=== PATIENT | female | born 1950 | race Caucasian/White ===

== ENCOUNTER → 2017-04-17 | Outpatient (CLI) | payer MEDICARE, MEDICAID ==
[2017-04-17 12:48] LABS: BASOPHILS # (AUTO) 0.1 10^3/uL (0.0-0.1); BASOPHILS % (AUTO) 0.4 %; EOSINOPHILS # (AUTO) 0.1 10^3/uL (0.0-0.7); EOSINOPHILS % (AUTO) 0.6 %; HCT - HEMATOCRIT 41.1 % (37.0-47.0); HGB - HEMOGLOBIN 13.5 g/dL (12.0-16.0); LYMPHOCYTES # (AUTO) 2.8 10^3/uL (1.5-3.5); LYMPHOCYTES % (AUTO) 23.7 %; MEAN CORPUSCULAR HEMOGLOBIN 31.8 pg (27.0-31.0); MEAN CORPUSCULAR HGB CONC 32.8 g/dL (32.0-36.0); MEAN PLATELET VOLUME 8.9 fL (7.9-10.8); MONOCYTES # (AUTO) 0.7 10^3/uL (0.0-1.0); MONOCYTES % (AUTO) 5.9 %; NEUTROPHILS # (AUTO) 8.3 10^3/uL (1.5-6.6); NEUTROPHILS % (AUTO) 69.4 %; RED BLOOD COUNT 4.24 10^6/uL (4.20-5.40); RED CELL DISTRIBUTION WIDTH 13.1 % (12.0-15.0)
[2017-04-17 13:11] LABS: BILIRUBIN,TOTAL 0.5 mg/dL (0.2-1.0); BUN - BLOOD UREA NITROGEN 18 mg/dL (6-20); CALCIUM 9.1 mg/dL (8.5-10.3); CARBON DIOXIDE - CO2 28 mmol/L (21-32); CHLORIDE 99 mmol/L (101-111); CHOL/HDL RATIO 2.8 (<4.4); CHOLESTEROL 143 mg/dL; CREATININE 0.9 mg/dL (0.4-1.0); GFR - MDRD 63 (>89); GLUCOSE 215 mg/dL (70-100); HDL CHOLESTEROL 52 mg/dL; LDL/HDL RATIO 1.4 (<4.4); POTASSIUM 4.2 mmol/L (3.5-5.0); SODIUM 135 mmol/L (135-145); TOTAL PROTEIN 7.3 g/dL (6.7-8.2); TRIGLYCERIDES 82 mg/dL; VLDL CHOLESTEROL 16 mg/dL
[2017-04-17 13:13] LABS: HEMOGLOBIN A1C 0.81 g/dL
== END ==
LOC: LAB.WCP 10:17
PROVIDERS: ATTEND Family Medicine
DX: N39.0 Urinary tract infection, site not specified (principal); E11.9 Type 2 diabetes mellitus without complications; E78.5 Hyperlipidemia, unspecified
CPT/HCPCS: 36415; 80053; 80061; 82043; 83036; 85025; 87086

== ENCOUNTER 2017-05-24 08:00 | Outpatient (CLI) | payer MEDICARE, MEDICAID | END 2017-05-24 08:01 | LOC: LAB.R 08:00 | PROVIDERS: ATTEND Family Medicine | DX: N39.0 Urinary tract infection, site not specified (principal) | CPT/HCPCS: 87086 ==

== ENCOUNTER 2017-06-07 05:54 | Day surgery (SDC) | payer MEDICARE, MEDICAID ==
[2017-06-07] MEDS ORDERED: LACTATED RINGERS 1,000 ML IV ONE (07:20)
[2017-06-07] MEDS ORDERED: fentaNYL 100 MCG/2 ML VIAL IVP ONE (07:32)
[2017-06-07] MEDS ORDERED: MIDAZOLAM 2 MG/2 ML VIAL IVP ONE (07:32)
[2017-06-07 08:54] VITALS: BP 105/66
== END 2017-06-07 05:55 | disposition home or self-care (01) ==
LOC: SDS 05:54
PROVIDERS: ATTEND Surgery
PROC: 0DBL8ZX Excision of Transverse Colon, Via Natural or Artificial Opening Endoscopic, Diagnostic (ICD-10-PCS; principal; 2017-06-07 07:30)
DX: Z12.11 Encounter for screening for malignant neoplasm of colon (principal); D12.3 Benign neoplasm of transverse colon; K57.30 Diverticulosis of large intestine without perforation or abscess without bleeding; K64.4 Residual hemorrhoidal skin tags; E11.9 Type 2 diabetes mellitus without complications; Z79.4 Long term (current) use of insulin; Z86.73 Personal history of transient ischemic attack (TIA), and cerebral infarction without residual deficits; I25.2 Old myocardial infarction
CPT/HCPCS: 45380; J7120

== ENCOUNTER 2017-08-10 10:26 | Outpatient (CLI) | payer MEDICARE, MEDICAID ==
[2017-08-10 19:08] LABS: BASOPHILS # (AUTO) 0.1 10^3/uL (0.0-0.1); BASOPHILS % (AUTO) 0.6 %; EOSINOPHILS # (AUTO) 0.2 10^3/uL (0.0-0.7); EOSINOPHILS % (AUTO) 1.9 %; HGB - HEMOGLOBIN 13.3 g/dL (12.0-16.0); LYMPHOCYTES # (AUTO) 2.1 10^3/uL (1.5-3.5); LYMPHOCYTES % (AUTO) 20.8 %; MEAN CORPUSCULAR HGB CONC 32.4 g/dL (32.0-36.0); MEAN CORPUSCULAR VOLUME 98.8 fL (81.0-99.0); MEAN PLATELET VOLUME 9.1 fL (7.9-10.8); MONOCYTES # (AUTO) 0.7 10^3/uL (0.0-1.0); MONOCYTES % (AUTO) 6.6 %; NEUTROPHILS # (AUTO) 7.1 10^3/uL (1.5-6.6); NEUTROPHILS % (AUTO) 70.1 %; PLT - PLATELET COUNT 284 10^3/uL (130-450); RED BLOOD COUNT 4.16 10^6/uL (4.20-5.40); RED CELL DISTRIBUTION WIDTH 13.1 % (12.0-15.0); WHITE BLOOD COUNT 10.2 x10^3/uL (4.8-10.8)
[2017-08-10 19:25] LABS: ALBUMIN 3.6 g/dL (3.2-5.5); ALBUMIN/GLOBULIN RATIO 0.9 (1.0-2.2); BILIRUBIN,TOTAL 0.4 mg/dL (0.2-1.0); CALCIUM 8.8 mg/dL (8.5-10.3); CREATININE 0.9 mg/dL (0.4-1.0); TOTAL PROTEIN 7.5 g/dL (6.7-8.2)
== END 2017-08-10 10:27 | disposition home or self-care (01) ==
LOC: LAB.WCP 10:26
PROVIDERS: ATTEND Family Medicine
DX: L03.116 Cellulitis of left lower limb (principal); I10 Essential (primary) hypertension
CPT/HCPCS: 36415; 80053; 85025

== ENCOUNTER 2017-08-13 08:00 | Outpatient (CLI) | payer MEDICARE, MEDICAID ==
[2017-08-13 13:06] LABS: ALBUMIN 3.7 g/dL (3.2-5.5); BILIRUBIN,TOTAL 0.3 mg/dL (0.2-1.0); CALCIUM 9.1 mg/dL (8.5-10.3); CREATININE 1.2 mg/dL (0.4-1.0); TOTAL PROTEIN 7.4 g/dL (6.7-8.2)
== END 2017-08-13 08:01 | disposition home or self-care (01) ==
LOC: LAB.WCP 08:00
PROVIDERS: ATTEND Family Medicine
DX: L03.116 Cellulitis of left lower limb (principal); I10 Essential (primary) hypertension
CPT/HCPCS: 36415; 80053

== ENCOUNTER 2017-09-28 10:20 | Outpatient (CLI) | payer MEDICARE, MEDICAID ==
[2017-09-28 13:16] LABS: BASOPHILS % (AUTO) 0.5 %; EOSINOPHILS # (AUTO) 0.3 10^3/uL (0.0-0.7); EOSINOPHILS % (AUTO) 3.1 %; HGB - HEMOGLOBIN 12.8 g/dL (12.0-16.0); LYMPHOCYTES # (AUTO) 2.6 10^3/uL (1.5-3.5); LYMPHOCYTES % (AUTO) 26.7 %; MEAN CORPUSCULAR HEMOGLOBIN 32.5 pg (27.0-31.0); MEAN CORPUSCULAR HGB CONC 33.6 g/dL (32.0-36.0); MEAN CORPUSCULAR VOLUME 96.8 fL (81.0-99.0); MEAN PLATELET VOLUME 8.4 fL (7.9-10.8); MONOCYTES # (AUTO) 0.8 10^3/uL (0.0-1.0); MONOCYTES % (AUTO) 7.8 %; NEUTROPHILS # (AUTO) 5.9 10^3/uL (1.5-6.6); NEUTROPHILS % (AUTO) 61.9 %; PLT - PLATELET COUNT 260 10^3/uL (130-450); RED BLOOD COUNT 3.95 10^6/uL (4.20-5.40); RED CELL DISTRIBUTION WIDTH 13.3 % (12.0-15.0); WHITE BLOOD COUNT 9.6 x10^3/uL (4.8-10.8)
[2017-09-28 13:37] LABS: HB2 TOTAL 13.7 g/dL; HEMOGLOBIN A1C 0.87 g/dL
[2017-09-28 13:38] LABS: ALBUMIN 3.6 g/dL (3.2-5.5); ALKALINE PHOSPHATASE 75 IU/L (42-121); ALT ALANINE AMINOTRANSFERASE 20 IU/L (10-60); AST ASPARTATE AMINOTRANSFERASE 19 IU/L (10-42); BILIRUBIN,TOTAL 0.3 mg/dL (0.2-1.0); BUN - BLOOD UREA NITROGEN 19 mg/dL (6-20); CALCIUM 8.8 mg/dL (8.5-10.3); CARBON DIOXIDE - CO2 27 mmol/L (21-32); CHLORIDE 100 mmol/L (101-111); CHOL/HDL RATIO 2.4 (<4.4); CHOLESTEROL 133 mg/dL; GFR - MDRD 56 (>89); GLUCOSE 306 mg/dL (70-100); HDL CHOLESTEROL 55 mg/dL; LDL CHOLESTEROL,CALCULATED 51 mg/dL; LDL/HDL RATIO 0.9 (<4.4); SODIUM 136 mmol/L (135-145); TOTAL PROTEIN 7.2 g/dL (6.7-8.2); VLDL CHOLESTEROL 27 mg/dL
== END 2017-09-28 10:21 | disposition home or self-care (01) ==
LOC: LAB.WCP 10:20
PROVIDERS: ATTEND Family Medicine
DX: E78.5 Hyperlipidemia, unspecified (principal); E11.9 Type 2 diabetes mellitus without complications; I10 Essential (primary) hypertension
CPT/HCPCS: 36415; 80053; 80061; 83036; 83721; 85025

== ENCOUNTER 2017-12-28 08:00 | Outpatient (CLI) | payer MEDICARE, MEDICAID ==
[2017-12-28 13:31] LABS: BASOPHILS % (AUTO) 0.4 %; EOSINOPHILS # (AUTO) 0.2 10^3/uL (0.0-0.7); EOSINOPHILS % (AUTO) 2.3 %; HGB - HEMOGLOBIN 13.1 g/dL (12.0-16.0); LYMPHOCYTES # (AUTO) 2.2 10^3/uL (1.5-3.5); LYMPHOCYTES % (AUTO) 27.1 %; MEAN CORPUSCULAR HEMOGLOBIN 32.9 pg (27.0-31.0); MEAN CORPUSCULAR HGB CONC 33.3 g/dL (32.0-36.0); MEAN CORPUSCULAR VOLUME 98.8 fL (81.0-99.0); MEAN PLATELET VOLUME 9.2 fL (7.9-10.8); MONOCYTES # (AUTO) 0.6 10^3/uL (0.0-1.0); MONOCYTES % (AUTO) 7.4 %; NEUTROPHILS % (AUTO) 62.8 %; PLT - PLATELET COUNT 263 10^3/uL (130-450); RED BLOOD COUNT 3.99 10^6/uL (4.20-5.40); RED CELL DISTRIBUTION WIDTH 12.8 % (12.0-15.0)
[2017-12-28 13:55] LABS: HB2 TOTAL 14.4 g/dL; HEMOGLOBIN A1C 0.71 g/dL; HEMOGLOBIN A1C % 6.7 % (4.6-6.2)
[2017-12-28 14:10] LABS: ALBUMIN 3.7 g/dL (3.2-5.5); ALBUMIN/GLOBULIN RATIO 1.1 (1.0-2.2); ALKALINE PHOSPHATASE 55 IU/L (42-121); ALT ALANINE AMINOTRANSFERASE 22 IU/L (10-60); AST ASPARTATE AMINOTRANSFERASE 19 IU/L (10-42); BILIRUBIN,TOTAL 0.4 mg/dL (0.2-1.0); BUN - BLOOD UREA NITROGEN 22 mg/dL (6-20); CARBON DIOXIDE - CO2 28 mmol/L (21-32); CHLORIDE 100 mmol/L (101-111); CHOL/HDL RATIO 2.7 (<4.4); CHOLESTEROL 123 mg/dL; CREATININE 0.9 mg/dL (0.4-1.0); GFR - MDRD 63 (>89); GLUCOSE 242 mg/dL (70-100); HDL CHOLESTEROL 46 mg/dL; LDL CHOLESTEROL,CALCULATED 53 mg/dL; LDL/HDL RATIO 1.2 (<4.4); SODIUM 137 mmol/L (135-145); TOTAL PROTEIN 7.2 g/dL (6.7-8.2); VLDL CHOLESTEROL 24 mg/dL
== END 2017-12-28 08:01 ==
LOC: LAB.WCP 08:00
PROVIDERS: ATTEND Family Medicine
DX: E78.5 Hyperlipidemia, unspecified (principal); E11.9 Type 2 diabetes mellitus without complications; I10 Essential (primary) hypertension
CPT/HCPCS: 36415; 80053; 80061; 83036; 83721; 85025

== ENCOUNTER 2018-04-20 10:40 | Inpatient (IN) | payer MEDICARE, MEDICAID ==
[2018-04-20] MEDS ORDERED: SODIUM CHLORIDE 0.9% 1,000 ML IV ONE (11:00)
--- NOTE | 2018-04-20 11:03 | ED Physician Documentation ---
PD HPI ALTERED MENTAL STATUS - Stated complaint Stated Complaint: CONFUSION/LOSS OF SPEECH - Chief complaint Chief Complaint: Neuro - History obtained from History obtained from: Patient, Family, EMS - History of Present Illness Timing - onset: Today Timing - duration: Hours Timing - details: Abrupt onset, Still present Quality / character: Confused, Other (trouble speaking) Associated symptoms: No: Fever, Headache, Dyspnea, Cough, NVD, Urinary sx, General weakness, Focal weakness, Seizure activity, Syncope Contributing factors: Diabetic. No: Recent med change, Recent illness Basline status: Alert and oriented X 3, Wheelchair Similar symptoms before: Diagnosis (CVA) Recently seen: Not recently seen - Additional information Additional information: 68-year-old female with a prior CVA related to fentanyl overdose has developed confusion and a aphasia that is apparent this morning. The and the patient states that he last saw her normal last night. Her normal is speaking normally and making sense. She has had a severe stroke affecting 19 areas of her brain more than 15 years ago. She is usually using a wheelchair for ambulation. She is incontinent of bowel and bladder. Review of Systems Constitutional: reports: Sweats. denies: Fever Eyes: denies: Decreased vision Ears: denies: Ear pain Nose: denies: Rhinorrhea / runny nose, Congestion Throat: denies: Sore throat Cardiac: denies: Chest pain / pressure, Palpitations Respiratory: denies: Dyspnea, Cough GI: denies: Abdominal Pain, Nausea, Vomiting : denies: Dysuria, Frequency Skin: denies: Rash Musculoskeletal: denies: Neck pain, Back pain, Extremity pain Neurologic: reports: Generalized weakness, Difficulty speaking, Confused, Altered mental status PD PAST MEDICAL HISTORY - Past Medical History Cardiovascular: NE Respiratory: None Endocrine/Autoimmune: Type 2 diabetes GI: Ulcers, Hiatal hernia Psych: Other - Past Surgical History General: Hiatal hernia repair, Other Cardiovascular: Coronary stent HEENT: Tonsil/Adenoidectomy - Present Medications Home Medications: Ambulatory Orders Medication Instructions Recorded Confirmed Baclofen 20 mg PO QID 05/14/17 05/14/17 Dicyclomine HCl 10 mg PO QID 05/14/17 05/14/17 Gabapentin 100 mg PO TID 05/14/17 05/14/17 Insulin Regular, Human [Humulin R 50 units SUBQ TID 05/14/17 05/14/17 U-500 Kwikpen] Lisinopril 5 mg PO DAILY 05/14/17 05/14/17 Nystatin 1 each TOP BID 05/14/17 05/14/17 Quetiapine Fumarate 50 mg PO DAILY PRN 05/14/17 05/14/17 Spironolactone 25 mg PO DAILY 05/14/17 05/14/17 - Allergies Allergies/Adverse Reactions: Allergies Allergy/AdvReac Type Severity Reaction Status Date / Time amitriptyline Allergy Unknown Verified 04/20/18 10:49 propoxyphene [From Darvon] Allergy Unknown Verified 04/20/18 10:49 - Social History Does the pt smoke?: No Smoking Status: Never smoker Does the pt drink ETOH?: No Does the pt have substance abuse?: No - Immunizations Immunizations are current?: No Immunizations: TDAP >10years/unknown PD ED PE NORMAL - Vitals Vital signs reviewed: Yes (tachy and hypertensive ) - General General: No acute distress, Well developed/nourished, Other (talks with "NO" and uh hu. ) - HEENT HEENT: Atraumatic, PERRL, EOMI - Neck Neck: Supple, no meningeal sign - Cardiac Cardiac: RRR, No murmur - Respiratory Respiratory: No respiratory distress, Clear bilaterally - Abdomen Abdomen: Soft, Non tender - Derm Derm: Normal color, Warm and dry, No rash - Extremities Extremities: Other (There are existing contractures of all limbs. ) - Neuro Neuro: Other (Speech is limited there is flexion posturing present from prior. ) Eye Opening: Spontaneous Motor: Obeys Commands Verbal: Confused GCS Score: 14 - Psych Psych: Normal mood, Normal affect Results - Vitals Vitals: Vital Signs - 24 hr 04/20/18 04/20/18 10:44 12:42 Heart Rate 101 H 76 Respiratory 21 22 Rate Blood Pressure 156/86 H 156/88 H O2 Saturation 97 Oxygen O2 Source Room air - EKG (time done) 1049 Rate: Rate (enter#) (96) Rhythm: NSR QRS: Low voltage Other comments: Other comments (early transition) Compare to prior EKG: Old EKG unavailable Computer interpretation: Agree with computer - Labs Labs: Laboratory Tests 04/20/18 04/20/18 04/20/18 10:47 10:50 10:50 WBC 12.9 H RBC 3.89 L Hgb 12.8 Hct 38.8 MCV 99.6 H MCH 32.8 H MCHC 33.0 RDW 13.5 Plt Count 323 MPV 8.6 Neut # (Auto) 8.6 H Lymph # (Auto) 3.1 [place] # (Auto) 0.9 Eos # (Auto) 0.2 Baso # (Auto) 0.0 Absolute Nucleated RBC 0.01 Nucleated RBC % 0.0 Sodium 138 Potassium 4.9 Chloride 97 L Carbon Dioxide 24 Anion Gap 17.0 H BUN 42 H Creatinine 1.9 H Estimated GFR (MDRD) 26 L Glucose 198 H POC Whole Bld Glucose 194 H Calcium 9.3 Total Bilirubin 0.6 AST 34 ALT 22 Alkaline Phosphatase 59 Troponin I Total Protein 8.0 Albumin 4.1 Globulin 3.9 Albumin/Globulin Ratio 1.1 Lipase 33 Urine Color Urine Clarity Urine pH Ur Specific [place] Urine Protein Urine Glucose (UA) Urine Ketones Urine Occult Blood Urine Nitrite Urine Bilirubin Urine Urobilinogen Ur Leukocyte Esterase Urine RBC Urine WBC Ur Squamous Epith Cells Urine Bacteria Ur Microscopic Review Urine Culture Comments 04/20/18 04/20/18 10:50 12:14 WBC RBC Hgb Hct MCV MCH MCHC RDW Plt Count MPV Neut # (Auto) Lymph # (Auto) [place] # (Auto) Eos # (Auto) Baso # (Auto) Absolute Nucleated RBC Nucleated RBC % Sodium Potassium Chloride Carbon Dioxide Anion Gap BUN Creatinine Estimated GFR (MDRD) Glucose POC Whole Bld Glucose Calcium Total Bilirubin AST ALT Alkaline Phosphatase Troponin I < 0.04 Total Protein Albumin Globulin Albumin/Globulin Ratio Lipase Urine Color YELLOW Urine Clarity HAZY Urine pH 6.0 Ur Specific [place] 1.020 Urine Protein NEGATIVE Urine Glucose (UA) NEGATIVE Urine Ketones 15 H Urine Occult Blood NEGATIVE Urine Nitrite POSITIVE H Urine Bilirubin NEGATIVE Urine Urobilinogen 0.2 (NORMAL) Ur Leukocyte Esterase NEGATIVE Urine RBC 0-5 Urine WBC 6-10 H Ur Squamous Epith Cells MOD Squamous H Urine Bacteria Moderate H Ur Microscopic Review INDICATED Urine Culture Comments NOT INDICATED - Rads (name of study) 2 veiw chest Radiology: Prelim report reviewed (Impression: Mild prominence of the pulmonary interstitium and probable left basilar atelectasis.), EMP read indepedently, See rad report CT head without Radiology: Prelim report reviewed (Impression: 1. No acute intracranial abnormality. 2 Encephalomalacia in the right parietal lobe. Cerebral volume loss greater than expected for age. Probable sequelae of small vessel ischemic change.), EMP read indepedently, See rad report Procedures - IVC sono (time) 1100 Bedside IVC sono: IVC measures (cm) (0.75), IVC collapsed c insp (cm) (complete), Significant dehydration (est 2-3 liter deficit.) PD MEDICAL DECISION MAKING - ED course Complexity details: reviewed old records, reviewed results, re-evaluated patient, considered differential, d/w patient, d/w family ED course: 68 y/o female with a prior history of devastating stroke has been sick about 2 days with vomiting, anger and no confusion. She is found to have elevated WBC, infiltrate on CXR and white cells and bacteria in a contaminated urine specimen. She has a marked decrease in her volume by interrogation of the IVC. - Sepsis Event Vital Signs: Vital Signs - 24 hr 04/20/18 04/20/18 10:44 12:42 Heart Rate 101 H 76 Respiratory 21 22 Rate Blood Pressure 156/86 H 156/88 H O2 Saturation 97 Oxygen O2 Source Room air Departure - Departure Disposition: 68 [facility] DC/Xfer Clinical Impression: Urinary tract infection Qualifiers: Urinary tract infection type: acute cystitis Hematuria presence: without hematuria Qualified Code(s): N30.00 - Acute cystitis without hematuria Pneumonia Qualifiers: Pneumonia type: due to unspecified organism Laterality: bilateral Lung location: lower lobe of lung Qualified Code(s): J18.1 - Lobar pneumonia, unspecified organism Altered mental status Qualifiers: Altered mental status type: delirium Qualified Code(s): R41.0 - Disorientation, unspecified Condition: Serious
[2018-04-20 11:07] LABS: BASOPHILS % (AUTO) 0.3 %; EOSINOPHILS # (AUTO) 0.2 10^3/uL (0.0-0.7); EOSINOPHILS % (AUTO) 1.7 %; HGB - HEMOGLOBIN 12.8 g/dL (12.0-16.0); LYMPHOCYTES # (AUTO) 3.1 10^3/uL (1.5-3.5); MEAN CORPUSCULAR HEMOGLOBIN 32.8 pg (27.0-31.0); MEAN CORPUSCULAR VOLUME 99.6 fL (81.0-99.0); MEAN PLATELET VOLUME 8.6 fL (7.9-10.8); MONOCYTES # (AUTO) 0.9 10^3/uL (0.0-1.0); NEUTROPHILS # (AUTO) 8.6 10^3/uL (1.5-6.6); PLT - PLATELET COUNT 323 10^3/uL (130-450); RED BLOOD COUNT 3.89 10^6/uL (4.20-5.40); RED CELL DISTRIBUTION WIDTH 13.5 % (12.0-15.0); WHITE BLOOD COUNT 12.9 x10^3/uL (4.8-10.8)
[2018-04-20 11:23] LABS: ALBUMIN 4.1 g/dL (3.2-5.5); ALBUMIN/GLOBULIN RATIO 1.1 (1.0-2.2); BILIRUBIN,TOTAL 0.6 mg/dL (0.2-1.0); CALCIUM 9.3 mg/dL (8.5-10.3); CREATININE 1.9 mg/dL (0.4-1.0)
--- NOTE | 2018-04-20 11:41 | CT Report ---
Reason: acute confusion/aphasia Procedure Date: 04/20/2018 Accession Number: [id number] / [id number] Procedure: CT - Head W/O CPT Code: FULL RESULT: EXAM: CT HEAD EXAM DATE: 04/20/2018 11:08 AM. CLINICAL HISTORY: Confusion, aphasia, history of stroke COMPARISON: None. TECHNIQUE: Multiaxial CT images were obtained from the foramen magnum to the vertex. Reformats: Sagittal and coronal. IV contrast: None. In accordance with CT protocol optimization, one or more of the following dose reduction techniques were utilized for this exam: automated exposure control, adjustment of mA and/or KV based on patient size, or use of iterative reconstructive technique. FINDINGS: Parenchyma: No intraparenchymal hemorrhage. No evidence of mass, midline shift, or CT findings of an acute transcortical infarction. Boyle-white differentiation is distinct. Advanced cortical volume loss for age. Extensive periventricular and subcortical white matter hypoattenuation, nonspecific but most likely related to the sequela of small vessel ischemic change. Encephalomalacia in the right parietal lobe, in keeping with provided history of remote prior infarct. Extraaxial Spaces: Prominent sulci, in keeping with cerebral volume loss, greater than expected for the patient's age. No subdural or epidural collections identified. Ventricles: Prominent ventricles, favor central atrophy. Sinuses and Orbits: Imaged paranasal sinuses, orbits, and mastoids show no significant abnormality. Bones: No evidence of fracture or calvarial defect. Other: None. IMPRESSION: 1. No acute intracranial abnormality. 2. Encephalomalacia in the right parietal lobe. Cerebral volume loss greater than expected for age. Probable sequela of small vessel ischemic change. RADIA
--- NOTE | 2018-04-20 12:16 | XRAY Report ---
Reason: acute confusion Procedure Date: 04/20/2018 Accession Number: [id number] / [id number] Procedure: XR - Chest 2 View X-Ray CPT Code: 80240 FULL RESULT: EXAM: CHEST RADIOGRAPHY EXAM DATE: 04/20/2018 11:33 AM. CLINICAL HISTORY: Acute confusion. COMPARISON: None. TECHNIQUE: 2 views. FINDINGS: Lungs/Pleura: Mild prominence of the pulmonary interstitium without stella pulmonary edema. Probable left basilar atelectasis. Mediastinum: Top normal heart size. Other: None. IMPRESSION: Mild prominence of the pulmonary interstitium and probable left basilar atelectasis. RADIA
[2018-04-20 12:18] LABS: BILIRUBIN,URINE NEGATIVE (NEGATIVE); GLUCOSE, URINE (UA) NEGATIVE (NEGATIVE); KETONES,URINE (UA) 15 mg/dL (NEGATIVE); LEUKOCYTE ESTERASE, URINE NEGATIVE (NEGATIVE); NITRITE,URINE POSITIVE (NEGATIVE); OCCULT BLOOD,URINE NEGATIVE (NEGATIVE); PROTEIN,URINE NEGATIVE (NEGATIVE); UROBILINOGEN,URINE 0.2 (NORMAL) E.U./dL (NORMAL)
[2018-04-20 12:19] LABS: CLARITY,URINE HAZY (CLEAR)
[2018-04-20 12:29] LABS: BACTERIA,URINE Moderate /HPF (None Seen); RBC,URINE 0-5 /HPF (0-5); SQUAMOUS EPITHELIAL CELL,UR MOD Squamous (<= Few)
[2018-04-20] MEDS ORDERED: cefTRIAXone 1 GM in SODIUM CHLORIDE 0.9% MINIBAG 100 ML IV STA (12:49)
[2018-04-20] MEDS ORDERED: AZITHROMYCIN INJ 500 MG in SODIUM CHLORIDE 0.9% 250 ML IV STA (12:50)
[2018-04-20] MEDS ORDERED: SODIUM CHLORIDE FLUSH 0.9% 10 ML SYRINGE IVP PRN (13:00)
--- NOTE | 2018-04-20 13:02 | HISTORY & PHYSICAL EXAMINATION ---
Chief Complaint - Chief Complaint Chief Complaint: altered mental status History of Present Illness - Admitted From Admitted From:: ED - History Obtained From Records Reviewed: yes History obtained from: chart review, patient Exam Limitations: AMS - History of Present Illness HPI Comment/Other: Nery Arredondo is a disabled 68-year old female with a past medical history of opioid dependence, anoxic brain injury/CVA in 2003 due to accidental fentanyl patch overdose, wheelchair bound, insomnia, mild cognitive delay, depression, NE, hypertension, status post coronary stenting, diabetes type 2-insulin dependent, gastric ulcers, abdominal hernia repair, and urinary/bowel incontinence. The patient began 2 days ago with nausea and vomiting with overall generalized weakness. Today the patient woke up and her , Dillon found that she could not speak as usual, and would call out, "help, help, help". EMS was called and once the patient was in the ED, labs show an elevated WBC count at 12.9, decreased kidney function with an elevated BUN at 42, and elevated creatinine of 1.9, a reduced GFR of 26, an elevated glucose of 198, and a negative troponin. A urine sample was taken, indicative of an acute UTI, and imaging on chest x-ray shows infiltrates. Vital signs were unremarkable, although slightly high B/P at 156/88. EKG showed possible atrial fibrillation. The patient is confused on exam and disabled at baseline with minimal movement of her extremities. The patient denies recent cough, fever, chills, dizziness, rashes, or chest pain. A phone interview was conducted with the patient's Dillon to obtain further data for this H & P. The patient will be admitted to the hospital for further treatment of her pneumonia/UTI, and possibly a head MRI as the patient had a concerning time of aphasia, confusion and a history of CVA. History - Past Medical History Cardiovascular: reports: Hypertension, NE, Murmur Respiratory: reports: None Neuro: reports: None Endocrine/Autoimmune: reports: Type 2 diabetes GI: reports: Ulcers, Other (stool incontinence) BRAIDER SETTER: reports: None : reports: Incontinence, Nocturia, Frequency HEENT: reports: None Psych: reports: Depression, Other (previous opioid dependence) Musculoskeletal: reports: Quadriplegia Derm: reports: None MRSA Hx?: No - Past Surgical History Cardiovascular: reports: Coronary stent, Cardiac catheterization, Angioplasty HEENT: reports: Tonsil/Adenoidectomy Other past surgical history: abdominal hernia repair - Family & Social History Family History Comment/Other: The patient was adopted with no knownledge of biological family PM hx. 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 She had 4 daughters, and Dillon her . During the peak of her opioid dependence, she was nearly , when she overdosed on narcotics leading to permanent disability. She did not end up getting a divorce and continues to be to her , Dillon and he has been her primary caregiver since this event in 2003. They live with their daughter and son-in-law in [place]. She is wheel chair bound with no use of her BUEs. The patient denies current use of tobacco, alcohol, or illicit drug use. The patient wishes to be a FULL code, which was confirmed with her . - Substance History Use: Uses substance without health or social issues: NONE Abuse: Recurrent use of substance despite neg consequences: NONE Dependence: Experiences withdrawal or developed tolerances: NONE - POLST Patient has POLST: No POLST Status: Full Code Meds/Allgy - Home Medications Home Medications: Ambulatory Orders Medication Instructions Recorded Confirmed Baclofen 20 mg PO QID 05/14/17 04/20/18 Dicyclomine HCl 10 mg PO QID 05/14/17 04/20/18 Gabapentin 100 mg PO QID 05/14/17 04/20/18 Insulin Regular, Human [Humulin R 45 units SUBQ 0800 05/14/17 04/20/18 U-500 Kwikpen] Quetiapine Fumarate 50 mg PO QPM 05/14/17 04/20/18 Spironolactone 25 mg PO MOWEFR@0900 05/14/17 04/20/18 Insulin Regular, Human [Humulin R] 10 units SUBQ QPM 04/20/18 04/20/18 Insulin Regular, Human [Humulin R] 15 units SUBQ 1200 04/20/18 04/20/18 Lisinopril 2.5 mg PO DAILY 04/20/18 04/20/18 Metformin HCl 1,000 mg PO BIDWM 04/20/18 04/20/18 Metoprolol Succinate 12.5 mg PO DAILY 04/20/18 04/20/18 Simvastatin 40 mg PO QPM 04/20/18 04/20/18 - Allergies Allergies/Adverse Reactions: Allergies Allergy/AdvReac Type Severity Reaction Status Date / Time amitriptyline Allergy Severe Unknown Verified 04/20/18 13:35 propoxyphene [From Darvon] Allergy Unknown Unknown Verified 04/20/18 13:35 Review of Systems - Constitutional Constitutional: reports: Fatigue, Malaise, Weakness, Poor appetite - Eyes Eyes: reports: Vision loss - Cardiovascular Cariovascular: reports: Orthopnea - Gastrointestinal Gastrointestinal: reports: Abdominal distention, Nausea, Vomiting, Poor appetite - Genitourinary Genitourinary: reports: Dysuria, Frequency, Incontinence, Nocturia - Musculoskeletal Musculoskeletal: reports: Limited range of motion - Neurological Neurological: reports: General weakness, Memory problems, Pre-existing deficit, Abnormal gait (absence of gait) - Psychiatric Psychiatric: reports: Depression - All Other Systems All Other Systems: reports: Reviewed and negative Prior Level of Functionality: Wheelchair bound since her anoxic brain injury/CVA in 2003. BUE contracted with no use of bilateral hands. Unable to support body weight with BLEs. She attends adult day care a few days per week. Primary personal care service provider is her , Dillon and her daughter. Exam - Vital Signs Reviewed Vital Signs: Yes Vital Signs: Vital Signs x48h Pulse Resp BP Pulse Ox 04/20/18 12:42 76 22 156/88 H 04/20/18 10:44 101 H 21 156/86 H 97 - Physical Exam General Appearance: positive: No acute distress, Alert Eyes Bilateral: positive: PERRL ENT: positive: ENT inspection nml, Pharynx nml, Dry mucous membranes Neck: positive: Thyroid nml, No JVD, Lymphadenopathy (R), Lymphadenopathy (L), Stiff neck Respiratory: positive: Chest non-tender, No respiratory distress, Other (diminished with scattered crackles.) Cardiovascular: positive: No gallop, Irregularly irregular, Systolic murmur Peripheral Pulses: positive: 1+ Abdomen: positive: Non-tender, Nml bowel sounds, Other (soft, obese.) Back: positive: Nml inspection Skin: positive: No rash, Warm, Dry, Pallor, Decubitus Extremities: positive: Non-tender, Pedal edema (mild BLE) Neurologic/Psychiatric: positive: Disoriented to place, Disoriented to time, Weakness, Sensory loss, Slurred/abnml speech, Depressed mood/affect, Other (baseline mild cognitive delay) Reflexes: Bicep (R): 1+, Bicep (L): 1+ Conclusion/Plan - Problem List (1) Pneumonia Conclusion/Plan: On imaging, the patient is found to have infiltrates in her left lobe. She denies cough, fever, chills, or shortness of breath. Her oxygen levels are WNLs, but she has a WBC count at 12.9, and she is at a higher risk with her wheelchair dependent status. Plan: Continue Rocephin, IVFs, and respiratory care. Qualifiers: Pneumonia type: due to unspecified organism Laterality: bilateral Lung location: lower lobe of lung Qualified Code(s): J18.1 - Lobar pneumonia, unspecified organism (2) Urinary tract infection Conclusion/Plan: A urine sample was obtained in the ED showing an acute UTI. As per the patient's , Dillon, the patient is incontinent of both urine and stool. The patient denies dysuria. Plan: Continue daily Rocephin and start a probiotic. Qualifiers: Urinary tract infection type: acute cystitis Hematuria presence: without hematuria Qualified Code(s): N30.00 - Acute cystitis without hematuria (3) ARCHIE (acute kidney injury) Conclusion/Plan: The patient's denies any previous kidney disease. Upon admission the patient is found to have a very low GFR of 26, and an elevated creatinine of 1.9. A beside IVC US was completed in the ED which revealed an estimated 2-3L fluid deficit. I will continue treatment with normal saline at 125mL/hour. Plan: Hold lisinopril and Spironolactone, continue IVFs and treat PNA/UTI. Daily labs and monitor urine out put. (4) Anoxic brain injury Conclusion/Plan: The patient's , Dillon states that at the time of her event in 2003, they were planning for a divorce due to her years of uncontrolled opioid dependence. 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 This has left her disabled, wheel chair bound and incontinent of urine and stool. She has been very healthy and this has been her first trip back to any hospital since 2003. Her primary caregivers are her , Dillon and her daughter. She is taken to adult day care 2 days per week for social interaction. Plan: Turns every 2 hours, and frequent nursing cares as she cannot push the call light due to her disability. (5) Disorientation Conclusion/Plan: The patient had some frightening symptoms prior to admission including aphasia, and confusion which is not her normal. She is known to have mild cognitive delay. This appears to be somewhat improved since admission, but continues to be a very poor historian upon exam. Plan: Continue to monitor. (6) Diabetes mellitus type 2, insulin dependent Conclusion/Plan: The patient is prescribed Metformin and is also insulin dependent using Humalog at home. The patient's , Dillon states that she has been having several times of hypoglycemia and they have been meaning to make an appointment with endocrinology in the near future. The Metformin will be on hold as per hospital policy. Plan: Continue to monitor blood sugars ACHS, Lantus at night, and SSI with meals. Will order a hemoglobin A1C for the AM. (7) Stented coronary artery Conclusion/Plan: Prior to her disabling event in 2003, she suffered from at least 2 MIs and has coronary stents. The most likely cause of this is her years of opioid depend ence. She sees a office aide in [place]. She denies chest pain upon admission and has a negative troponin. Plan: Daily labs, and resume SIVAN when appropriate. (8) Hypertension Conclusion/Plan: The patient is found to have hypertension upon admission with a blood pressure of 156/88. She is prescribe lisinopril and Spironolactone at home, which are both on hold in light of her dehydration and ARCHIE. Plan: Continue to monitor and resume in the next 24-48 hours. Qualifiers: Hypertension type: essential hypertension Qualified Code(s): I10 - Essential (primary) hypertension - Lab Results Lab results reviewed: Yes Fish Bones: 04/20/18 10:50 04/20/18 10:50 - Diagnostic Imaging Results Diagnostic Imaging Results: positive: Final report reviewed Diagnostic Imaging Results Comments: EXAM: CT HEAD EXAM DATE: 04/20/2018 11:08 AM. IMPRESSION: 1. No acute intracranial abnormality. 2. Encephalomalacia in the right parietal lobe. Cerebral volume loss greater t atkinson expected for age. Probable sequela of small vessel ischemic change. EXAM: CHEST RADIOGRAPHY EXAM DATE: 04/20/2018 11:33 AM. IMPRESSION: Mild prominence of the pulmonary interstitium and probable left basilar atelectasis. - EKG Results EKG Interpreted Independently: Yes EKG Comparison: No prior EKG EKG Findings: atrial fibrillation-90's. Echo ordered. Core Measures - Anticipated LOS I expect patient to be DC'd or transferred within 96 hours.: Yes - DVT/VTE - Prophylaxis VTE/DVT Device ordered at admit?: Yes VTE/DVT Prophylaxis med ordered at admit?: Yes - Stroke - Rehab Assessment Rehab services assessment to be ordered?: Yes - AMI - Statin at Admit Aspirin Prescribed on Admit: Yes
[2018-04-20] MEDS: GABAPENTIN 100 MG CAPSULE PO SCH ×2 (17:43→21:02)
[2018-04-20] MEDS: DICYCLOMINE 10 MG CAPSULE PO SCH ×2 (17:43→21:02)
[2018-04-20] MEDS: SODIUM CHLORIDE FLUSH 0.9% 10 ML SYRINGE IVP SCH ×2 (17:43→23:31)
[2018-04-20] MEDS: SODIUM CHLORIDE 0.9% 1,000 ML IV SCH (17:43)
[2018-04-20] MEDS: ATORVASTATIN 10 MG TABLET PO SCH (21:02)
[2018-04-20] MEDS: BACLOFEN 10 MG TABLET PO SCH (21:02)
[2018-04-20] MEDS: INSULIN ASPART 300 UNIT/3 ML PEN SUBQ SCH (21:02)
[2018-04-20] MEDS: QUEtiapine 25 MG TABLET PO SCH (21:02)
[2018-04-20] MEDS: INSULIN GLARGINE 300 UNIT/3 ML PEN SUBQ SCH (21:03)
[2018-04-21] MEDS: SODIUM CHLORIDE 0.9% 1,000 ML IV SCH ×3 (02:33→15:08)
[2018-04-21 06:43] LABS: BASOPHILS # (AUTO) 0.1 10^3/uL (0.0-0.1); BASOPHILS % (AUTO) 0.5 %; EOSINOPHILS # (AUTO) 0.5 10^3/uL (0.0-0.7); EOSINOPHILS % (AUTO) 4.5 %; HGB - HEMOGLOBIN 12.4 g/dL (12.0-16.0); LYMPHOCYTES # (AUTO) 2.8 10^3/uL (1.5-3.5); LYMPHOCYTES % (AUTO) 27.8 %; MEAN CORPUSCULAR HEMOGLOBIN 33.1 pg (27.0-31.0); MEAN CORPUSCULAR HGB CONC 33.7 g/dL (32.0-36.0); MEAN CORPUSCULAR VOLUME 98.5 fL (81.0-99.0); MEAN PLATELET VOLUME 8.6 fL (7.9-10.8); MONOCYTES # (AUTO) 0.9 10^3/uL (0.0-1.0); MONOCYTES % (AUTO) 8.9 %; NEUTROPHILS # (AUTO) 5.8 10^3/uL (1.5-6.6); NEUTROPHILS % (AUTO) 58.3 %; PLT - PLATELET COUNT 311 10^3/uL (130-450); RED BLOOD COUNT 3.74 10^6/uL (4.20-5.40); RED CELL DISTRIBUTION WIDTH 13.2 % (12.0-15.0)
[2018-04-21 06:54] LABS: ALBUMIN 3.5 g/dL (3.2-5.5); ALBUMIN/GLOBULIN RATIO 1.1 (1.0-2.2); BILIRUBIN,TOTAL 0.7 mg/dL (0.2-1.0); CALCIUM 8.5 mg/dL (8.5-10.3); CREATININE 1.2 mg/dL (0.4-1.0); MAGNESIUM 1.4 mg/dL (1.7-2.8); TOTAL PROTEIN 6.8 g/dL (6.7-8.2)
[2018-04-21 07:03] LABS: HB2 TOTAL 13.1 g/dL; HEMOGLOBIN A1C 0.6 g/dL; HEMOGLOBIN A1C % 6.3 % (4.6-6.2)
[2018-04-21] MEDS: ENOXAPARIN 30 MG/0.3 ML SYRINGE SUBQ SCH (08:20)
[2018-04-21] MEDS: INSULIN ASPART 300 UNIT/3 ML PEN SUBQ SCH ×4 (08:20→21:06)
[2018-04-21] MEDS: BACLOFEN 10 MG TABLET PO SCH ×4 (08:21→21:04)
[2018-04-21] MEDS: cefTRIAXone 1 GM in SODIUM CHLORIDE 0.9% MINIBAG 100 ML IV SCH (08:21)
[2018-04-21] MEDS: SACCHAROMYCES BOULARDII 250 MG CAPSULE PO SCH ×2 (08:21→16:45)
[2018-04-21] MEDS: MAGNESIUM OXIDE 400 MG TABLET PO SCH ×2 (08:21→21:05)
[2018-04-21] MEDS: GABAPENTIN 100 MG CAPSULE PO SCH ×4 (08:22→21:05)
[2018-04-21] MEDS: DICYCLOMINE 10 MG CAPSULE PO SCH ×4 (08:22→21:05)
[2018-04-21] MEDS: POLYETHYLENE GLYCOL 3350 17 GM PACKET PO SCH (08:22)
[2018-04-21] MEDS: METOPROLOL SUCCINATE 25 MG TABLET PO SCH (08:23)
[2018-04-21] MEDS: SODIUM CHLORIDE FLUSH 0.9% 10 ML SYRINGE IVP SCH ×2 (08:24→16:47)
[2018-04-21] MEDS ORDERED: METOPROLOL SUCCINATE 25 MG TABLET PO SCH (09:00)
[2018-04-21] MEDS ORDERED: cefTRIAXone 1 GM VIAL IVP SCH (09:00)
[2018-04-21] MEDS ORDERED: IPRATROPIUM/ALBUTEROL 3 ML NEB INH PRN (10:48)
--- NOTE | 2018-04-21 10:48 | PROVIDER PROGRESS NOTE ---
Subjective - Prog Note Date Prog Note Date: 04/21/18 Prog Note Time: 10:48 - Subjective Pt reports feeling: Improved Subjective: Nery's Dillon is present for this exam. She denies any new symptoms such as headaches, chest pain, nausea, vomiting, rashes, or an increased cough. Current Medications - Current Medications Current Medications: Active Medications Atorvastatin Calcium (Lipitor) 20 mg PO QPM [facility] Last Admin: 04/20/18 21:02 Dose: 20 mg Azithromycin (Zithromax) 250 mg PO BID [facility] Baclofen (Lioresal) 20 mg PO QID [facility] Last Admin: 04/21/18 08:21 Dose: 20 mg Dicyclomine HCl (Bentyl) 10 mg PO QID [facility] Last Admin: 04/21/18 08:22 Dose: 10 mg Enoxaparin Sodium (Lovenox) 30 mg SUBQ DAILY [facility] Last Admin: 04/21/18 08:20 Dose: 30 mg Gabapentin (Neurontin) 100 mg PO QID [facility] Last Admin: 04/21/18 08:22 Dose: 100 mg Ceftriaxone Sodium 1 gm/ (Sodium Chloride) 100 mls @ 200 mls/hr IV DAILY [facility] Last Infusion: 04/21/18 09:26 Dose: Infused Sodium Chloride (Normal Saline 0.9%) 1,000 mls @ 50 mls/hr IV .Q20H [facility] Last Admin: 04/21/18 08:17 Dose: 50 mls/hr Insulin Aspart (Novolog) 1 - 5 unit SUBQ 0800,1200,1700,2100 [facility]; Protocol Last Admin: 04/21/18 08:20 Dose: 1 unit Insulin Glargine (Lantus Solostar) 10 unit SUBQ QPM [facility] Last Admin: 04/20/18 21:03 Dose: 10 unit Magnesium Oxide (Mag Ox) 400 mg PO BID [facility] Last Admin: 04/21/18 08:21 Dose: 400 mg Metoprolol Succinate (Toprol Xl) 12.5 mg PO DAILY [facility] Last Admin: 04/21/18 08:23 Dose: 12.5 mg Polyethylene Glycol (Miralax) 17 gm PO DAILY [facility] Last Admin: 04/21/18 08:22 Dose: 17 gm Quetiapine Fumarate (Seroquel) 50 mg PO QPM [facility] Last Admin: 04/20/18 21:02 Dose: 50 mg Saccharomyces Boulardii (Florastor) 500 mg PO BIDWM [facility] Last Admin: 04/21/18 08:21 Dose: 500 mg Sodium Chloride (Normal Saline Flush 0.9%) 10 ml IVP PRN PRN PRN Reason: NEEDED PER PROVIDER ORDERS Sodium Chloride (Normal Saline Flush 0.9%) 10 ml IVP 0100,0900,1700 [facility] Last Admin: 04/21/18 08:24 Dose: Not Given Baclofen 20 mg PO QID 05/14/17 Dicyclomine HCl 10 mg PO QID 05/14/17 Gabapentin 100 mg PO QID 05/14/17 Insulin Regular, Human [Humulin R U-500 Kwikpen] 45 units SUBQ 0800 05/14/17 Quetiapine Fumarate 50 mg PO QPM 05/14/17 Spironolactone 25 mg PO MOWEFR@0900 05/14/17 Insulin Regular, Human [Humulin R] 10 units SUBQ QPM 04/20/18 Insulin Regular, Human [Humulin R] 15 units SUBQ 1200 04/20/18 Lisinopril 2.5 mg PO DAILY 04/20/18 Metformin HCl 1,000 mg PO BIDWM 04/20/18 Metoprolol Succinate 12.5 mg PO DAILY 04/20/18 Simvastatin 40 mg PO QPM 04/20/18 Objective - Vital Signs/Intake & Output Reviewed Vital Signs: Yes Vital Signs: Vital Signs x48h Temp Pulse Pulse Resp BP Pulse Ox 04/21/18 08:46 36.9 C 78 18 155/84 H 93 04/21/18 07:17 36.9 C 76 18 159/69 H 95 04/21/18 03:40 36.5 C 65 18 109/64 97 Intake & Output: Intake & Output 04/18/18 04/19/18 04/20/18 04/21/18 23:59 23:59 23:59 23:59 Intake Total 2500 1936 Output Total 100 1800 Balance 2400 136 - Objective General Appearance: positive: No acute distress, Alert Eyes Bilateral: positive: Normal inspection, Other (dry) ENT: positive: Pharynx nml, No signs of dehydration Neck: positive: Thyroid nml, No JVD Respiratory: positive: Chest non-tender, No respiratory distress, Other (crackles in bilateral low lobes) Cardiovascular: positive: Regular rate & rhythm, No gallop, Systolic murmur Peripheral Pulses: 1+ Radial (R), 1+ Radial (L) Abdomen: positive: Non-tender, Nml bowel sounds, Other (rounded, soft) Back: positive: Nml inspection Skin: positive: No rash, Warm, Dry, Pallor Neurologic/Psychiatric: positive: Oriented x3, Disoriented to time, Weakness, Slurred/abnml speech, Depressed mood/affect Reflexes: Bicep (R): 3+, Bicep (L): 3+ - Lab Results Fish Bones: 04/21/18 06:00 04/21/18 06:00 Other Labs: Lab Results x24hrs 04/21/18 04/21/18 04/21/18 Range/Units 06:00 06:00 06:00 WBC 10.0 (4.8-10.8) x10^3/uL RBC 3.74 L (4.20-5.40) 10^6/uL Hgb 12.4 (12.0-16.0) g/dL Hct 36.9 L (37.0-47.0) % MCV 98.5 (81.0-99.0) fL MCH 33.1 H (27.0-31.0) pg MCHC 33.7 (32.0-36.0) g/dL RDW 13.2 (12.0-15.0) % Plt Count 311 (130-450) 10^3/uL MPV 8.6 (7.9-10.8) fL Neut # (Auto) 5.8 (1.5-6.6) 10^3/uL Lymph # (Auto) 2.8 (1.5-3.5) 10^3/uL [place] # (Auto) 0.9 (0.0-1.0) 10^3/uL Eos # (Auto) 0.5 (0.0-0.7) 10^3/uL Baso # (Auto) 0.1 (0.0-0.1) 10^3/uL Absolute Nucleated RBC 0.00 x10^3/uL Nucleated RBC % 0.0 /100WBC Sodium 143 (135-145) mmol/L Potassium 4.6 (3.5-5.0) mmol/L Chloride 105 (101-111) mmol/L Carbon Dioxide 29 (21-32) mmol/L Anion Gap 9.0 (6-13) BUN 25 H (6-20) mg/dL Creatinine 1.2 H (0.4-1.0) mg/dL Estimated GFR (MDRD) 45 L (>89) Glucose 143 H (70-100) mg/dL POC Whole Bld Glucose (70 - 100) mg/dL Glycated Hemoglobin 6.3 H (4.6-6.2) % Estim Average Glucose 134 H (70-100) Calcium 8.5 (8.5-10.3) mg/dL Magnesium 1.4 L (1.7-2.8) mg/dL Total Bilirubin 0.7 (0.2-1.0) mg/dL AST 15 (10-42) IU/L ALT 17 (10-60) IU/L Alkaline Phosphatase 46 (42-121) IU/L Troponin I (<0.49) ng/mL Total Protein 6.8 (6.7-8.2) g/dL Albumin 3.5 (3.2-5.5) g/dL Globulin 3.3 (2.1-4.2) g/dL Albumin/Globulin Ratio 1.1 (1.0-2.2) Lipase (22-51) U/L Urine Color Urine Clarity (CLEAR) Urine pH (5.0-7.5) PH Ur Specific Seney (1.002-1.030) Urine Protein (NEGATIVE) mg/dL Urine Glucose (UA) (NEGATIVE) mg/dL Urine Ketones (NEGATIVE) mg/dL Urine Occult Blood (NEGATIVE) Urine Nitrite (NEGATIVE) Urine Bilirubin (NEGATIVE) Urine Urobilinogen (NORMAL) E.U./dL Ur Leukocyte Esterase (NEGATIVE) Urine RBC (0-5) /HPF Urine WBC (0-5) /HPF Ur Squamous Epith Cells (<= Few) Urine Bacteria (None Seen) /HPF Ur Microscopic Review Urine Culture Comments 04/21/18 04/20/18 04/20/18 Range/Units 01:39 12:14 10:50 WBC (4.8-10.8) x10^3/uL RBC (4.20-5.40) 10^6/uL Hgb (12.0-16.0) g/dL Hct (37.0-47.0) % MCV (81.0-99.0) fL MCH (27.0-31.0) pg MCHC (32.0-36.0) g/dL RDW (12.0-15.0) % Plt Count (130-450) 10^3/uL MPV (7.9-10.8) fL Neut # (Auto) (1.5-6.6) 10^3/uL Lymph # (Auto) (1.5-3.5) 10^3/uL [place] # (Auto) (0.0-1.0) 10^3/uL Eos # (Auto) (0.0-0.7) 10^3/uL Baso # (Auto) (0.0-0.1) 10^3/uL Absolute Nucleated RBC x10^3/uL Nucleated RBC % /100WBC Sodium (135-145) mmol/L Potassium (3.5-5.0) mmol/L Chloride (101-111) mmol/L Carbon Dioxide (21-32) mmol/L Anion Gap (6-13) BUN (6-20) mg/dL Creatinine (0.4-1.0) mg/dL Estimated GFR (MDRD) (>89) Glucose (70-100) mg/dL POC Whole Bld Glucose 150 H (70 - 100) mg/dL Glycated Hemoglobin (4.6-6.2) % Estim Average Glucose (70-100) Calcium (8.5-10.3) mg/dL Magnesium (1.7-2.8) mg/dL Total Bilirubin (0.2-1.0) mg/dL AST (10-42) IU/L ALT (10-60) IU/L Alkaline Phosphatase (42-121) IU/L Troponin I < 0.04 (<0.49) ng/mL Total Protein (6.7-8.2) g/dL Albumin (3.2-5.5) g/dL Globulin (2.1-4.2) g/dL Albumin/Globulin Ratio (1.0-2.2) Lipase (22-51) U/L Urine Color YELLOW Urine Clarity HAZY (CLEAR) Urine pH 6.0 (5.0-7.5) PH Ur Specific Seney 1.020 (1.002-1.030) Urine Protein NEGATIVE (NEGATIVE) mg/dL Urine Glucose (UA) NEGATIVE (NEGATIVE) mg/dL Urine Ketones 15 H (NEGATIVE) mg/dL Urine Occult Blood NEGATIVE (NEGATIVE) Urine Nitrite POSITIVE H (NEGATIVE) Urine Bilirubin NEGATIVE (NEGATIVE) Urine Urobilinogen 0.2 (NORMAL) (NORMAL) E.U./dL Ur Leukocyte Esterase NEGATIVE (NEGATIVE) Urine RBC 0-5 (0-5) /HPF Urine WBC 6-10 H (0-5) /HPF Ur Squamous Epith Cells MOD Squamous H (<= Few) Urine Bacteria Moderate H (None Seen) /HPF Ur Microscopic Review INDICATED Urine Culture Comments NOT INDICATED 04/20/18 04/20/18 04/20/18 Range/Units 10:50 10:50 10:47 WBC 12.9 H (4.8-10.8) x10^3/uL RBC 3.89 L (4.20-5.40) 10^6/uL Hgb 12.8 (12.0-16.0) g/dL Hct 38.8 (37.0-47.0) % MCV 99.6 H (81.0-99.0) fL MCH 32.8 H (27.0-31.0) pg MCHC 33.0 (32.0-36.0) g/dL RDW 13.5 (12.0-15.0) % Plt Count 323 (130-450) 10^3/uL MPV 8.6 (7.9-10.8) fL Neut # (Auto) 8.6 H (1.5-6.6) 10^3/uL Lymph # (Auto) 3.1 (1.5-3.5) 10^3/uL [place] # (Auto) 0.9 (0.0-1.0) 10^3/uL Eos # (Auto) 0.2 (0.0-0.7) 10^3/uL Baso # (Auto) 0.0 (0.0-0.1) 10^3/uL Absolute Nucleated RBC 0.01 x10^3/uL Nucleated RBC % 0.0 /100WBC Sodium 138 (135-145) mmol/L Potassium 4.9 (3.5-5.0) mmol/L Chloride 97 L (101-111) mmol/L Carbon Dioxide 24 (21-32) mmol/L Anion Gap 17.0 H (6-13) BUN 42 H (6-20) mg/dL Creatinine 1.9 H (0.4-1.0) mg/dL Estimated GFR (MDRD) 26 L (>89) Glucose 198 H (70-100) mg/dL POC Whole Bld Glucose 194 H (70 - 100) mg/dL Glycated Hemoglobin (4.6-6.2) % Estim Average Glucose (70-100) Calcium 9.3 (8.5-10.3) mg/dL Magnesium (1.7-2.8) mg/dL Total Bilirubin 0.6 (0.2-1.0) mg/dL AST 34 (10-42) IU/L ALT 22 (10-60) IU/L Alkaline Phosphatase 59 (42-121) IU/L Troponin I (<0.49) ng/mL Total Protein 8.0 (6.7-8.2) g/dL Albumin 4.1 (3.2-5.5) g/dL Globulin 3.9 (2.1-4.2) g/dL Albumin/Globulin Ratio 1.1 (1.0-2.2) Lipase 33 (22-51) U/L Urine Color Urine Clarity (CLEAR) Urine pH (5.0-7.5) PH Ur Specific [place]y (1.002-1.030) Urine Protein (NEGATIVE) mg/dL Urine Glucose (UA) (NEGATIVE) mg/dL Urine Ketones (NEGATIVE) mg/dL Urine Occult Blood (NEGATIVE) Urine Nitrite (NEGATIVE) Urine Bilirubin (NEGATIVE) Urine Urobilinogen (NORMAL) E.U./dL Ur Leukocyte Esterase (NEGATIVE) Urine RBC (0-5) /HPF Urine WBC (0-5) /HPF Ur Squamous Epith Cells (<= Few) Urine Bacteria (None Seen) /HPF Ur Microscopic Review Urine Culture Comments ABX Reporting Has patient been on IV antibiotics over the past 48 hours?: Yes Assessment/Plan - Problem List (1) Pneumonia Impression: On imaging, the patient is found to have infiltrates in her left lobe. She denies cough, fever, chills, or shortness of breath. Her oxygen levels are WNLs, but she had a WBC count at 12.9, now normal, and she is at a higher risk with her wheelchair dependent status. Today on exam the patient appears more hypoxic, and crackles are heard in her low bases. I have added nebulizer treatments to be given, and PRN, incentive spirometry. I would like a sputum sample. Plan: Continue Rocephin, IVFs, daily labs, and respiratory care. Qualifiers: Pneumonia type: due to unspecified organism Laterality: bilateral Lung location: lower lobe of lung Qualified Code(s): J18.1 - Lobar pneumonia, unspecified organism (2) Urinary tract infection Impression: A urine sample was obtained in the ED showing an acute UTI. As per the patient's , Dillon, the patient is incontinent of both urine and stool. The patient denies dysuria. Plan: Continue daily Rocephin and start a probiotic. Qualifiers: Urinary tract infection type: acute cystitis Hematuria presence: without hematuria Qualified Code(s): N30.00 - Acute cystitis without hematuria (3) ARCHIE (acute kidney injury) Impression: The patient's denies any previous kidney disease. Upon admission the patient is found to have a very low GFR of 26, and an elevated creatinine of 1.9. A beside IVC US was completed in the ED which revealed an estimated 2-3L fluid deficit. She continues on normal saline at 50mL/hour. Today, labs are improved with a creatinine of 1.2, and an improved GFR of 45. Plan: Hold lisinopril and Spironolactone, continue IVFs and treat PNA/UTI. Daily labs and monitor urine out put. (4) Anoxic brain injury Impression: The patient's , Dillon states that at the time of her event in 2003, they were planning for a divorce due to her years of uncontrolled opioid dependence. 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 This has left her disabled, wheel chair bound and incontinent of urine and stool. She has been very healthy and this has been her first trip back to any hospital since 2003. Her primary caregivers are her , Dillon and her daughter. She is taken to adult day care 2 days per week for social interaction. Plan: Turns every 2 hours, and frequent nursing cares as she cannot push the call light due to her disability. (5) Disorientation Impression: The patient had some frightening symptoms prior to admission including aphasia, and confusion which is not her normal. She is known to have mild cognitive delay. This appears to be somewhat improved since admission, but continues to be a very poor historian upon exam. Plan: Continue to monitor. (6) Diabetes mellitus type 2, insulin dependent Impression: The patient is prescribed Metformin and is also insulin dependent using Humalog at home. The patient's , Dillon states that she has been having several times of hypoglycemia and they have been meaning to make an appointment with end ocrinology in the near future. The Metformin will be on hold as per hospital policy. A hemoglobin A1C was 6.3%, showing fair control. Plan: Continue to monitor blood sugars ACHS, Lantus at night, and SSI with meals. 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 The most likely cause of this is her years of opioid dependence. She sees a plant tech in [place]. She denies chest pain upon admission and has a negative troponin. Plan: Daily labs, and resume SIVAN when appropriate. (8) Hypertension Impression: The patient is found to have hypertension upon admission with a blood pressure of 156/88. She is prescribe lisinopril and Spironolactone at home, which are both on hold in light of her dehydration and ARCHIE. Plan: Continue to monitor and resume in the next 24-48 hours. Qualifiers: Hypertension type: essential hypertension Qualified Code(s): I10 - [place] germain (primary) hypertension
[2018-04-21] MEDS ORDERED: MAGNESIUM SULFATE 2 GRAM 2 GM/50 ML BAG IV SCH (11:30)
[2018-04-21] MEDS: AZITHROMYCIN 250 MG TABLET PO SCH (11:50)
[2018-04-21] MEDS: CARBOXYMETHYLCELLULOSE OPHTH DROPS EACHEYE SCH ×2 (13:05→21:15)
[2018-04-21] MEDS: ATORVASTATIN 10 MG TABLET PO SCH (21:05)
[2018-04-21] MEDS: INSULIN GLARGINE 300 UNIT/3 ML PEN SUBQ SCH (21:05)
[2018-04-21] MEDS: QUEtiapine 25 MG TABLET PO SCH (21:05)
[2018-04-22] MEDS: SODIUM CHLORIDE FLUSH 0.9% 10 ML SYRINGE IVP SCH ×3 (01:29→15:37)
[2018-04-22 05:57] LABS: BASOPHILS # (AUTO) 0.1 10^3/uL (0.0-0.1); BASOPHILS % (AUTO) 0.5 %; EOSINOPHILS # (AUTO) 0.3 10^3/uL (0.0-0.7); HGB - HEMOGLOBIN 12.1 g/dL (12.0-16.0); LYMPHOCYTES # (AUTO) 2.9 10^3/uL (1.5-3.5); LYMPHOCYTES % (AUTO) 26.5 %; MEAN CORPUSCULAR HEMOGLOBIN 32.8 pg (27.0-31.0); MEAN CORPUSCULAR HGB CONC 33.4 g/dL (32.0-36.0); MEAN CORPUSCULAR VOLUME 98.2 fL (81.0-99.0); MEAN PLATELET VOLUME 8.4 fL (7.9-10.8); MONOCYTES # (AUTO) 0.9 10^3/uL (0.0-1.0); NEUTROPHILS # (AUTO) 6.9 10^3/uL (1.5-6.6); PLT - PLATELET COUNT 287 10^3/uL (130-450); RED BLOOD COUNT 3.69 10^6/uL (4.20-5.40); RED CELL DISTRIBUTION WIDTH 13.2 % (12.0-15.0); WHITE BLOOD COUNT 11.1 x10^3/uL (4.8-10.8)
[2018-04-22 06:07] LABS: ALBUMIN 3.5 g/dL (3.2-5.5); ALBUMIN/GLOBULIN RATIO 1.1 (1.0-2.2); BILIRUBIN,TOTAL 0.5 mg/dL (0.2-1.0); CALCIUM 8.7 mg/dL (8.5-10.3); CREATININE 1.4 mg/dL (0.4-1.0); MAGNESIUM 1.9 mg/dL (1.7-2.8); TOTAL PROTEIN 6.7 g/dL (6.7-8.2)
[2018-04-22] MEDS: CARBOXYMETHYLCELLULOSE OPHTH DROPS EACHEYE SCH ×3 (06:46→21:21)
[2018-04-22] MEDS: SODIUM CHLORIDE 0.9% 1,000 ML IV SCH (06:47)
[2018-04-22] MEDS: POLYETHYLENE GLYCOL 3350 17 GM PACKET PO SCH (08:05)
[2018-04-22] MEDS: ENOXAPARIN 30 MG/0.3 ML SYRINGE SUBQ SCH (08:05)
[2018-04-22] MEDS: SACCHAROMYCES BOULARDII 250 MG CAPSULE PO SCH ×2 (08:05→16:37)
[2018-04-22] MEDS: BACLOFEN 10 MG TABLET PO SCH ×4 (08:06→20:33)
[2018-04-22] MEDS: DICYCLOMINE 10 MG CAPSULE PO SCH ×4 (08:06→20:33)
[2018-04-22] MEDS: GABAPENTIN 100 MG CAPSULE PO SCH ×4 (08:06→20:33)
[2018-04-22] MEDS: AZITHROMYCIN 250 MG TABLET PO SCH (08:06)
[2018-04-22] MEDS: MAGNESIUM OXIDE 400 MG TABLET PO SCH ×2 (08:07→20:33)
[2018-04-22] MEDS: METOPROLOL SUCCINATE 25 MG TABLET PO SCH (08:07)
[2018-04-22] MEDS: cefTRIAXone 1 GM in SODIUM CHLORIDE 0.9% MINIBAG 100 ML IV SCH (08:08)
[2018-04-22] MEDS: INSULIN ASPART 300 UNIT/3 ML PEN SUBQ SCH ×4 (08:09→20:34)
--- NOTE | 2018-04-22 14:14 | PROVIDER PROGRESS NOTE ---
Subjective - Prog Note Date Prog Note Date: 04/22/18 Prog Note Time: 14:12 - Subjective Pt reports feeling: Improved Subjective: Nery is generally improved and has no complaints. Her , Dillon is at the bedside. The patient denies chest pain, problems swallowing, nausea, vomiting, diarrhea or an increased cough. Current Medications - Current Medications Current Medications: Active Medications Albuterol/Ipratropium (Duoneb) 3 ml INH RTQ4H PRN PRN Reason: Wheezing Last Admin: 04/21/18 11:24 Dose: 3 ml Atorvastatin Calcium (Lipitor) 20 mg PO QPM [facility] Last Admin: 04/21/18 21:05 Dose: 20 mg Azithromycin (Zithromax) 250 mg PO DAILY [facility] Last Admin: 04/22/18 08:06 Dose: 250 mg Baclofen (Lioresal) 20 mg PO QID [facility] Last Admin: 04/22/18 13:21 Dose: 20 mg Carboxymethylcellulose (Refresh 1% Ophth Drops) 1 drops EACHEYE TID [facility] Last Admin: 04/22/18 13:23 Dose: 1 drops Dicyclomine HCl (Bentyl) 10 mg PO QID [facility] Last Admin: 04/22/18 13:22 Dose: 10 mg Enoxaparin Sodium (Lovenox) 30 mg SUBQ DAILY [facility] Last Admin: 04/22/18 08:05 Dose: 30 mg Gabapentin (Neurontin) 100 mg PO QID [facility] Last Admin: 04/22/18 13:22 Dose: 100 mg Ceftriaxone Sodium 1 gm/ (Sodium Chloride) 100 mls @ 200 mls/hr IV DAILY [facility] Last Infusion: 04/22/18 08:38 Dose: Infused Sodium Chloride (Normal Saline 0.9%) 1,000 mls @ 50 mls/hr IV .Q20H [facility] Last Admin: 04/22/18 06:47 Dose: 50 mls/hr Insulin Aspart (Novolog) 2 - 10 unit SUBQ 0800,1200,1700,2100 [facility]; Protocol Last Admin: 04/22/18 12:18 Dose: 6 unit Insulin Glargine (Lantus Solostar) 10 unit SUBQ QPM [facility] Last Admin: 04/21/18 21:05 Dose: 10 unit Magnesium Oxide (Mag Ox) 400 mg PO BID [facility] Last Admin: 10/01/18 08:07 Dose: 400 mg Metoprolol Succinate (Toprol Xl) 12.5 mg PO DAILY [facility] Last Admin: 04/22/18 08:07 Dose: 12.5 mg Polyethylene Glycol (Miralax) 17 gm PO DAILY [facility] [place] Last Admin: 04/22/18 08:05 Dose: 17 gm Quetiapine Fumarate (Seroquel) 50 mg PO QPM [facility] [place] Last Admin: 04/21/18 21:05 Dose: 50 mg Saccharomyces Boulardii (Florastor) 500 mg PO BIDWM [facility] Last Admin: 04/22/18 08:05 Dose: 500 mg Sodium Chloride (Normal Saline Flush 0.9%) 10 ml IVP PRN PRN PRN Reason: NEEDED PER PROVIDER ORDERS Sodium Chloride (Normal Saline Flush 0.9%) 10 ml IVP 0100,0900,1700 [facility] [place] Last Admin: 04/22/18 08:12 Dose: Not Given Baclofen 20 mg PO QID 05/14/17 Dicyclomine HCl 10 mg PO QID 05/14/17 Gabapentin 100 mg PO QID 05/14/17 Insulin Regular, Human [Humulin R U-500 Kwikpen] 45 units SUBQ 0800 05/14/17 Quetiapine Fumarate 50 mg PO QPM 05/14/17 Spironolactone 25 mg PO MOWEFR@0900 05/14/17 Insulin Regular, Human [Humulin R] 10 units SUBQ QPM 04/20/18 Insulin Regular, Human [Humulin R] 15 units SUBQ 1200 04/20/18 Lisinopril 2.5 mg PO DAILY 04/20/18 Metformin HCl 1,000 mg PO BIDWM 04/20/18 Metoprolol Succinate 12.5 mg PO DAILY 04/20/18 Simvastatin 40 mg PO QPM 04/20/18 Objective - Vital Signs/Intake & Output Reviewed Vital Signs: Yes Vital Signs: Vital Signs x48h Temp Pulse Resp BP Pulse Ox 04/22/18 07:49 36.8 C 77 18 142/73 H 94 Intake & Output: Intake & Output 04/19/18 04/20/18 04/21/18 04/22/18 23:59 23:59 23:59 23:59 Intake Total 2500 3764.5 1122.5 Output Total 100 3800 1000 Balance 2400 -35.5 122.5 - Objective General Appearance: positive: No acute distress, Alert Eyes Bilateral: positive: Normal inspection, PERRL ENT: positive: ENT inspection nml, Pharynx nml, Dry mucous membranes Neck: positive: Thyroid nml, No JVD, Stiff neck Respiratory: positive: Chest non-tender, No respiratory distress, Other (diminished in low lobes.) Cardiovascular: positive: Regular rate & rhythm, No gallop, Systolic murmur Peripheral Pulses: 1+ Radial (R), 1+ Radial (L) Abdomen: positive: Non-tender, Nml bowel sounds, Other (rounded, soft) Back: positive: Nml inspection Skin: positive: No rash, Warm, Dry Extremities: positive: Non-tender, Pedal edema, Joint swelling, Other (muscle atrophy, foot drop due to paralysis of BLE) Neurologic/Psychiatric: positive: Disoriented to time, Weakness, Sensory loss, Slurred/abnml speech (profaine language, difficulty with clear speaking.), Depressed mood/affect Reflexes: Bicep (R): 1+, Bicep (L): 1+ - Lab Results Fish Bones: 04/22/18 05:33 04/22/18 05:33 Other Labs: Lab Results x24hrs 04/22/18 04/22/18 04/22/18 Range/Units 11:49 07:48 05:33 WBC (4.8-10.8) x10^3/uL RBC (4.20-5.40) 10^6/uL Hgb (12.0-16.0) g/dL Hct (37.0-47.0) % MCV (81.0-99.0) fL MCH (27.0-31.0) pg MCHC (32.0-36.0) g/dL RDW (12.0-15.0) % Plt Count (130-450) 10^3/uL MPV (7.9-10.8) fL Neut # (Auto) (1.5-6.6) 10^3/uL Lymph # (Auto) (1.5-3.5) 10^3/uL Lyman # (Auto) (0.0-1.0) 10^3/uL Eos # (Auto) (0.0-0.7) 10^3/uL Baso # (Auto) (0.0-0.1) 10^3/uL Absolute Nucleated RBC x10^3/uL Nucleated RBC % /100WBC Sodium (135-145) mmol/L Potassium (3.5-5.0) mmol/L Chloride (101-111) mmol/L Carbon Dioxide (21-32) mmol/L Anion Gap (6-13) BUN (6-20) mg/dL Creatinine (0.4-1.0) mg/dL Estimated GFR (MDRD) (>89) Glucose (70-100) mg/dL POC Whole Bld Glucose 251 H 278 H (70 - 100) mg/dL Calcium (8.5-10.3) mg/dL Magnesium (1.7-2.8) mg/dL Total Bilirubin (0.2-1.0) mg/dL AST (10-42) IU/L ALT (10-60) IU/L Alkaline Phosphatase (42-121) IU/L B-Natriuretic Peptide 70 (5-100) pg/mL Total Protein (6.7-8.2) g/dL Albumin (3.2-5.5) g/dL Globulin (2.1-4.2) g/dL Albumin/Globulin Ratio (1.0-2.2) 04/22/18 04/22/18 Range/Units 05:33 05:33 WBC 11.1 H (4.8-10.8) x10^3/uL RBC 3.69 L (4.20-5.40) 10^6/uL Hgb 12.1 (12.0-16.0) g/dL Hct 36.2 L (37.0-47.0) % MCV 98.2 (81.0-99.0) fL MCH 32.8 H (27.0-31.0) pg MCHC 33.4 (32.0-36.0) g/dL RDW 13.2 (12.0-15.0) % Plt Count 287 (130-450) 10^3/uL MPV 8.4 (7.9-10.8) fL Neut # (Auto) 6.9 H (1.5-6.6) 10^3/uL Lymph # (Auto) 2.9 (1.5-3.5) 10^3/uL Lyman # (Auto) 0.9 (0.0-1.0) 10^3/uL Eos # (Auto) 0.3 (0.0-0.7) 10^3/uL Baso # (Auto) 0.1 (0.0-0.1) 10^3/uL Absolute Nucleated RBC 0.01 x10^3/uL Nucleated RBC % 0.1 /100WBC Sodium 140 (135-145) mmol/L Potassium 4.4 (3.5-5.0) mmol/L Chloride 103 (101-111) mmol/L Carbon Dioxide 27 (21-32) mmol/L Anion Gap 10.0 (6-13) BUN 17 (6-20) mg/dL Creatinine 1.4 H (0.4-1.0) mg/dL Estimated GFR (MDRD) 38 L (>89) Glucose 287 H (70-100) mg/dL POC Whole Bld Glucose (70 - 100) mg/dL Calcium 8.7 (8.5-10.3) mg/dL Magnesium 1.9 (1.7-2.8) mg/dL Total Bilirubin 0.5 (0.2-1.0) mg/dL AST 12 (10-42) IU/L ALT 16 (10-60) IU/L Alkaline Phosphatase 49 (42-121) IU/L B-Natriuretic Peptide (5-100) pg/mL Total Protein 6.7 (6.7-8.2) g/dL Albumin 3.5 (3.2-5.5) g/dL Globulin 3.2 (2.1-4.2) g/dL Albumin/Globulin Ratio 1.1 (1.0-2.2) ABX Reporting Has patient been on IV antibiotics over the past 48 hours?: Yes Assessment/Plan - Problem List (1) Pneumonia Impression: On imaging, the patient was found to have infiltrates in her left lobe. She denied recent cough, fever, chills, or shortness of breath. Her oxygen levels were originally normal, but yesterday it was noted that she appeared hypoxic, an d had slightly lower oxygen saturations at 92% on room air. She was noted to have a WBC count at 12.9, now normal, and she is at a higher risk with her wheelchair dependent status. The patient does not have any respiratory distress and her lung sound are diminished. She was started on more agressive respiratory care using nebulizers as needed, and incentive spirometry. She has not been able to produce a sputum sample. Plan: Continue Rocephin, IVFs, daily labs, and respiratory care. Qualifiers: Pneumonia type: due to unspecified organism Laterality: bilateral Lung location: lower lobe of lung Qualified Code(s): J18.1 - Lobar pneumonia, unspecified organism (2) Urinary tract infection Impression: A urine sample was obtained in the ED showing an acute UTI. As per the patient's , Dillon, the patient is incontinent of both urine and stool. The patient denies dysuria. She has since had a purewick with good looking urine that is clear and yellow. Plan: Continue daily Rocephin and monitor urine out put. Qualifiers: Urinary tract infection type: acute cystitis Hematuria presence: without hematuria Qualified Code(s): N30.00 - Acute cystitis without hematuria (3) ARCHIE (acute kidney injury) Impression: The patient's denies any previous kidney disease. Upon admission the patient is found to have a very low GFR of 26, and an elevated creatinine of 1.9. A beside IVC US was completed in the ED which revealed an estimated 2-3L fluid deficit. She continues on normal saline at 50mL/hour. Today, labs are stable with a creatinine of 1.4, and an improved GFR of 38. Plan: Hold lisinopril and Spironolactone, continue IVFs and treat PNA/UTI. Daily labs and monitor urine out put. (4) Anoxic brain injury Impression: The patient's , Dillon states that at the time of her event in 2003, they were planning for a divorce due to her years of uncontrolled opioid dependence. 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 This has left her disabled, wheel chair bound and incontinent of urine and stool. She has been very healthy and this has been her first trip back to any hospital since 2003. Her primary caregivers are her , Dillon and her daughter. She is taken to adult day care 2 days per week for social interaction. Plan: Turns every 2 hours, and frequent nursing cares as she cannot push the call light due to her disability. (5) Disorientation Impression: The patient had some frightening symptoms prior to admission including aphasia, and confusion which is not her normal. She is known to have mild cognitive delay. This appears to be somewhat improved since admission, but continues to be a very poor historian upon exam. Plan: Continue to monitor. (6) Diabetes mellitus type 2, insulin dependent Impression: The patient is prescribed Metformin and is also insulin dependent using Humalog at home. The patient's , Dillon states that she has been having several times of hypoglycemia and they have been meaning to make an appointment with endocrinology in the near future. The Metformin will be on hold as per hospital policy. A hemoglobin A1C was 6.3%, showing fair control. Plan: Continue to monitor blood sugars ACHS, Lantus at night, and SSI with meals. 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 The most likely cause of this is her years of opioid dependence. She sees a acetylene burner in [place]. She denies chest pain upon admission and has a negative troponin. Plan: Daily labs, and resume SIVAN when appropriate. (8) Hypertension Impression: The patient is found to have hypertension upon admission with a blood pressure of 156/88. She is prescribe lisinopril and Spironolactone at home, which are b oth on hold in light of her dehydration and ARCHIE. Plan: Continue to monitor and hold lisinopril due to ARCHIE. Qualifiers: Hypertension type: essential hypertension Qualified Code(s): I10 - Essential (primary) hypertension
[2018-04-22] MEDS: QUEtiapine 25 MG TABLET PO SCH (20:33)
[2018-04-22] MEDS: ATORVASTATIN 10 MG TABLET PO SCH (20:33)
[2018-04-22] MEDS ORDERED: INSULIN GLARGINE 300 UNIT/3 ML PEN SUBQ SCH (21:00)
[2018-04-23] MEDS: SODIUM CHLORIDE 0.9% 1,000 ML IV SCH (01:56)
[2018-04-23] MEDS: SODIUM CHLORIDE FLUSH 0.9% 10 ML SYRINGE IVP SCH ×3 (01:56→15:23)
[2018-04-23] MEDS: CARBOXYMETHYLCELLULOSE OPHTH DROPS EACHEYE SCH ×3 (06:01→21:11)
[2018-04-23 06:47] LABS: BASOPHILS # (AUTO) 0.1 10^3/uL (0.0-0.1); BASOPHILS % (AUTO) 0.6 %; EOSINOPHILS # (AUTO) 0.6 10^3/uL (0.0-0.7); EOSINOPHILS % (AUTO) 4.9 %; HGB - HEMOGLOBIN 12.8 g/dL (12.0-16.0); LYMPHOCYTES # (AUTO) 3.6 10^3/uL (1.5-3.5); LYMPHOCYTES % (AUTO) 31.9 %; MEAN CORPUSCULAR HEMOGLOBIN 33.1 pg (27.0-31.0); MEAN CORPUSCULAR HGB CONC 33.8 g/dL (32.0-36.0); MEAN CORPUSCULAR VOLUME 97.9 fL (81.0-99.0); MEAN PLATELET VOLUME 8.7 fL (7.9-10.8); MONOCYTES # (AUTO) 0.8 10^3/uL (0.0-1.0); MONOCYTES % (AUTO) 7.1 %; NEUTROPHILS # (AUTO) 6.3 10^3/uL (1.5-6.6); NEUTROPHILS % (AUTO) 55.5 %; PLT - PLATELET COUNT 320 10^3/uL (130-450); RED BLOOD COUNT 3.87 10^6/uL (4.20-5.40); RED CELL DISTRIBUTION WIDTH 13.2 % (12.0-15.0); WHITE BLOOD COUNT 11.4 x10^3/uL (4.8-10.8)
[2018-04-23 06:59] LABS: ALBUMIN 3.5 g/dL (3.2-5.5); BILIRUBIN,TOTAL 0.5 mg/dL (0.2-1.0); CALCIUM 8.8 mg/dL (8.5-10.3); MAGNESIUM 1.7 mg/dL (1.7-2.8)
[2018-04-23] MEDS: INSULIN ASPART 300 UNIT/3 ML PEN SUBQ SCH ×5 (08:05→20:27)
[2018-04-23] MEDS: SACCHAROMYCES BOULARDII 250 MG CAPSULE PO SCH ×2 (08:08→16:14)
[2018-04-23] MEDS: METOPROLOL SUCCINATE 25 MG TABLET PO SCH (09:22)
[2018-04-23] MEDS: ENOXAPARIN 30 MG/0.3 ML SYRINGE SUBQ SCH (09:22)
[2018-04-23] MEDS: DICYCLOMINE 10 MG CAPSULE PO SCH ×4 (09:23→20:26)
[2018-04-23] MEDS: MAGNESIUM OXIDE 400 MG TABLET PO SCH ×2 (09:23→20:26)
[2018-04-23] MEDS: BACLOFEN 10 MG TABLET PO SCH ×5 (09:23→20:26)
[2018-04-23] MEDS: AZITHROMYCIN 250 MG TABLET PO SCH (09:23)
[2018-04-23] MEDS: GABAPENTIN 100 MG CAPSULE PO SCH ×4 (09:23→20:30)
[2018-04-23] MEDS: POLYETHYLENE GLYCOL 3350 17 GM PACKET PO SCH (09:24)
[2018-04-23] MEDS: cefTRIAXone 1 GM in SODIUM CHLORIDE 0.9% MINIBAG 100 ML IV SCH (09:31)
[2018-04-23] MEDS ORDERED: INSULIN ASPART 300 UNIT/3 ML PEN SUBQ ONE (11:47)
--- NOTE | 2018-04-23 14:28 | PROVIDER PROGRESS NOTE ---
Subjective - Prog Note Date Prog Note Date: 04/23/18 - Subjective Pt reports feeling: Improved Subjective: pt denies complaint but present some kind of delirium, we will research if this is pt's baseline, because pt has hx of brain injury, will contact pt's family. Current Medications - Current Medications Current Medications: Active Medications Albuterol/Ipratropium (Duoneb) 3 ml INH RTQ4H PRN PRN Reason: Wheezing Last Admin: 04/21/18 11:24 Dose: 3 ml Atorvastatin Calcium (Lipitor) 20 mg PO QPM [facility] Last Admin: 04/22/18 20:33 Dose: 20 mg Azithromycin (Zithromax) 250 mg PO DAILY [facility] Last Admin: 04/23/18 09:23 Dose: 250 mg Baclofen (Lioresal) 20 mg PO QID [facility] Last Admin: 04/23/18 16:14 Dose: 20 mg Carboxymethylcellulose (Refresh 1% Ophth Drops) 1 drops EACHEYE TID [facility] Last Admin: 04/23/18 13:11 Dose: 1 drops Dicyclomine HCl (Bentyl) 10 mg PO QID [facility] Last Admin: 04/23/18 16:14 Dose: 10 mg Enoxaparin Sodium (Lovenox) 30 mg SUBQ DAILY [facility] Last Admin: 04/23/18 09:22 Dose: 30 mg Gabapentin (Neurontin) 100 mg PO QID [facility] Last Admin: 04/23/18 16:14 Dose: 100 mg Ceftriaxone Sodium 1 gm/ (Sodium Chloride) 100 mls @ 200 mls/hr IV DAILY [facility] Last Infusion: 04/23/18 10:05 Dose: Infused Sodium Chloride (Normal Saline 0.9%) 1,000 mls @ 50 mls/hr IV .Q20H [facility] Last Admin: 04/23/18 01:56 Dose: 50 mls/hr Insulin Aspart (Novolog) 3 - 11 unit SUBQ 0800,1200,1700,2100 [facility]; Protocol Insulin Aspart (Novolog) 5 unit SUBQ TIDWM [facility]; Protocol Insulin Glargine (Lantus Solostar) 20 unit SUBQ QPM [facility] Magnesium Oxide (Mag Ox) 400 mg PO BID [facility] Last Admin: 04/23/18 09:23 Dose: 400 mg Metoprolol Succinate (Toprol Xl) 12.5 mg PO DAILY [facility] Last Admin: 04/23/18 09:22 Dose: 12.5 mg Ondansetron HCl (Zofran Inj) 4 mg IVP Q6HR PRN PRN Reason: Nausea / Vomiting Last Admin: 04/23/18 16:14 Dose: 4 mg Polyethylene Glycol (Miralax) 17 gm PO DAILY [facility] Last Admin: 04/23/18 09:24 Dose: Not Given Quetiapine Fumarate (Seroquel) 50 mg PO QPM [facility] Last Admin: 04/22/18 20:33 Dose: 50 mg Saccharomyces Boulardii (Florastor) 500 mg PO BIDWM [facility] Last Admin: 04/23/18 16:14 Dose: 500 mg Sodium Chloride (Normal Saline Flush 0.9%) 10 ml IVP PRN PRN PRN Reason: NEEDED PER PROVIDER ORDERS Sodium Chloride (Normal Saline Flush 0.9%) 10 ml IVP 0100,0900,1700 [facility] Last Admin: 04/23/18 15:23 Dose: Not Given Baclofen 20 mg PO QID 05/14/17 Dicyclomine HCl 10 mg PO QID 05/14/17 Gabapentin 100 mg PO QID 05/14/17 Insulin Regular, Human [Humulin R U-500 Kwikpen] 45 units SUBQ 0800 05/14/17 Quetiapine Fumarate 50 mg PO QPM 05/14/17 Spironolactone 25 mg PO MOWEFR@0900 05/14/17 Insulin Regular, Human [Humulin R] 10 units SUBQ QPM 04/20/18 Insulin Regular, Human [Humulin R] 15 units SUBQ 1200 04/20/18 Lisinopril 2.5 mg PO DAILY 04/20/18 Metformin HCl 1,000 mg PO BIDWM 04/20/18 Metoprolol Succinate 12.5 mg PO DAILY 04/20/18 Simvastatin 40 mg PO QPM 04/20/18 Objective - Vital Signs/Intake & Output Reviewed Vital Signs: Yes Vital Signs: Vital Signs x48h Temp Pulse Pulse Resp BP Pulse Ox 04/23/18 14:11 36.7 C 84 20 148/83 H 100 04/23/18 13:30 36.8 C 74 16 96 04/23/18 06:59 36.8 C 96 17 126/79 94 Intake & Output: Intake & Output 0904/21/18 04/22/18 04/23/18 23:59 23:59 23:59 23:59 Intake Total 2500 3764.5 1922.5 1707.5 Output Total 100 3800 2100 100 Balance 2400 -35.5 -177.5 1607.5 - Objective General Appearance: positive: No acute distress, Alert. negative: Lethargic Eyes Bilateral: positive: Normal inspection, PERRL, No lid inflammation, Conjunctivae nml ENT: positive: ENT inspection nml, Pharynx nml, No signs of dehydration. negative: Purulent nasal drainage, Pharyngeal erythema, Oral lesions Neck: positive: Nml inspection, Thyroid nml, No JVD, Trachea midline. negative: Thyromegaly, Lymphadenopathy (R), Lymphadenopathy (L), Stiff neck, Swelling/bruising, Tracheal deviation Respiratory: positive: Chest non-tender, No respiratory distress, Breath sounds nml. negative: Wheezes, Rales, Rhonchi Cardiovascular: positive: Regular rate & rhythm, No murmur, No gallop. negative: Irregularly irregular, Extrasystoles, Tachycardia, Bradycardia, JVD present, Systolic murmur, Diastolic murmur Peripheral Pulses: 2+ Radial (R), 2+ Radial (L), 2+ Dorsalis pedis (R), 2+ Dorsalis pedis (L) Abdomen: positive: Non-tender, No organomegaly, Nml bowel sounds, No distention. negative: Tenderness, Guarding, Rebound Back: positive: Nml inspection. negative: CVA tenderness (R), CVA tenderness (L) Skin: positive: Color nml, No rash, Warm, Dry. negative: Cyanosis, Diaphoresis, Pallor Extremities: positive: Non-tender, Nml appearance. negative: Calf tenderness, Joint swelling, Gini's sign/cords Neurologic/Psychiatric: positive: Mood/affect nml. negative: Weakness, Sensory loss, Facial droop, Slurred/abnml speech - Lab Results Fish Bones: 04/23/18 05:45 04/23/18 05:45 Other Labs: Lab Results x24hrs 04/23/18 04/23/18 04/23/18 Range/Units 07:23 05:45 05:45 WBC 11.4 H (4.8-10.8) x10^3/uL RBC 3.87 L (4.20-5.40) 10^6/uL Hgb 12.8 (12.0-16.0) g/dL Hct 37.8 (37.0-47.0) % MCV 97.9 (81.0-99.0) fL MCH 33.1 H (27.0-31.0) pg MCHC 33.8 (32.0-36.0) g/dL RDW 13.2 (12.0-15.0) % Plt Count 320 (130-450) 10^3/uL MPV 8.7 (7.9-10.8) fL Neut # (Auto) 6.3 (1.5-6.6) 10^3/uL Lymph # (Auto) 3.6 H (1.5-3.5) 10^3/uL [place] # (Auto) 0.8 (0.0-1.0) 10^3/uL Eos # (Auto) 0.6 (0.0-0.7) 10^3/uL Baso # (Auto) 0.1 (0.0-0.1) 10^3/uL Absolute Nucleated RBC 0.01 x10^3/uL Nucleated RBC % 0.1 /100WBC Sodium 139 (135-145) mmol/L Potassium 4.1 (3.5-5.0) mmol/L Chloride 101 (101-111) mmol/L Carbon Dioxide 28 (21-32) mmol/L Anion Gap 10.0 (6-13) BUN 11 (6-20) mg/dL Creatinine 1.0 (0.4-1.0) mg/dL Estimated GFR (MDRD) 55 L (>89) Glucose 256 H (70-100) mg/dL POC Whole Bld Glucose 252 H (70 - 100) mg/dL Calcium 8.8 (8.5-10.3) mg/dL Magnesium 1.7 (1.7-2.8) mg/dL Total Bilirubin 0.5 (0.2-1.0) mg/dL AST 16 (10-42) IU/L ALT 19 (10-60) IU/L Alkaline Phosphatase 55 (42-121) IU/L Total Protein 7.0 (6.7-8.2) g/dL Albumin 3.5 (3.2-5.5) g/dL Globulin 3.5 (2.1-4.2) g/dL Albumin/Globulin Ratio 1.0 (1.0-2.2) 04/23/18 04/22/18 04/22/18 Range/Units 02:03 22:27 20:13 WBC (4.8-10.8) x10^3/uL RBC (4.20-5.40) 10^6/uL Hgb (12.0-16.0) g/dL Hct (37.0-47.0) % MCV (81.0-99.0) fL MCH (27.0-31.0) pg MCHC (32.0-36.0) g/dL RDW (12.0-15.0) % Plt Count (130-450) 10^3/uL MPV (7.9-10.8) fL Neut # (Auto) (1.5-6.6) 10^3/uL Lymph # (Auto) (1.5-3.5) 10^3/uL [place] # (Auto) (0.0-1.0) 10^3/uL Eos # (Auto) (0.0-0.7) 10^3/uL Baso # (Auto) (0.0-0.1) 10^3/uL Absolute Nucleated RBC x10^3/uL Nucleated RBC % /100WBC Sodium (135-145) mmol/L Potassium (3.5-5.0) mmol/L Chloride (101-111) mmol/L Carbon Dioxide (21-32) mmol/L Anion Gap (6-13) BUN (6-20) mg/dL Creatinine (0.4-1.0) mg/dL Estimated GFR (MDRD) (>89) Glucose (70-100) mg/dL POC Whole Bld Glucose 274 H 327 H 336 H (70 - 100) mg/dL Calcium (8.5-10.3) mg/dL Magnesium (1.7-2.8) mg/dL Total Bilirubin (0.2-1.0) mg/dL AST (10-42) IU/L ALT (10-60) IU/L Alkaline Phosphatase (42-121) IU/L Total Protein (6.7-8.2) g/dL Albumin (3.2-5.5) g/dL Globulin (2.1-4.2) g/dL Albumin/Globulin Ratio (1.0-2.2) 04/22/18 Range/Units 16:45 WBC (4.8-10.8) x10^3/uL RBC (4.20-5.40) 10^6/uL Hgb (12.0-16.0) g/dL Hct (37.0-47.0) % MCV (81.0-99.0) fL MCH (27.0-31.0) pg MCHC (32.0-36.0) g/dL RDW (12.0-15.0) % Plt Count (130-450) 10^3/uL MPV (7.9-10.8) fL Neut # (Auto) (1.5-6.6) 10^3/uL Lymph # (Auto) (1.5-3.5) 10^3/uL [place] # (Auto) (0.0-1.0) 10^3/uL Eos # (Auto) (0.0-0.7) 10^3/uL Baso # (Auto) (0.0-0.1) 10^3/uL Absolute Nucleated RBC x10^3/uL Nucleated RBC % /100WBC Sodium (135-145) mmol/L Potassium (3.5-5.0) mmol/L Chloride (101-111) mmol/L Carbon Dioxide (21-32) mmol/L Anion Gap (6-13) BUN (6-20) mg/dL Creatinine (0.4-1.0) mg/dL Estimated GFR (MDRD) (>89) Glucose (70-100) mg/dL POC Whole Bld Glucose 303 H (70 - 100) mg/dL Calcium (8.5-10.3) mg/dL Magnesium (1.7-2.8) mg/dL Total Bilirubin (0.2-1.0) mg/dL AST (10-42) IU/L ALT (10-60) IU/L Alkaline Phosphatase (42-121) IU/L Total Protein (6.7-8.2) g/dL Albumin (3.2-5.5) g/dL Globulin (2.1-4.2) g/dL Albumin/Globulin Ratio (1.0-2.2) ABX Reporting Has patient been on IV antibiotics over the past 48 hours?: Yes Assessment/Plan - Problem List (1) Pneumonia Impression: (1) Pneumonia Impression: 04/23 100% sats on room air, no fever, chill. pt has slight elevated WBC, but it appears this is pt's chronic condition. blood culture and UA culture were negative continue antibiotics, plan d/c pt on tomorrow On imaging, the patient was found to have infiltrates in her left lobe. She denied recent cough, fever, chills, or shortness of breath. Her oxygen levels were originally normal, but yesterday it was noted that she appeared hypoxic, and had slightly lower oxygen saturations at 92% on room air. She was noted to have a WBC count at 12.9, now normal, and she is at a higher risk with her wheelchair dependent status. The patient does not have any respiratory distress and her lung sound are diminished. She was started on more agressive respiratory care using nebulizers as needed, and incentive spirometry. She has not been able to produce a sputum sample. Plan: Continue Rocephin, IVFs, daily labs, and respiratory care. (2) Urinary tract infection Impression: denies dysuria continue antibiotics A urine sample was obtained in the ED showing an acute UTI. As per the patient's , Dillon, the patient is incontinent of both urine and stool. The patient denies dysuria. She has since had a purewick with good looking urine that is clear and yellow. Plan: Continue daily Rocephin and monitor urine out put. (3) ARCHIE (acute kidney injury) Impression: resolved as pt's baseline The patient's denies any previous kidney disease. Upon admission the patient is found to have a very low GFR of 26, and an elevated creatinine of 1.9. A beside IVC US was completed in the ED which revealed an estimated 2-3L fluid deficit. She continues on normal saline at 50mL/hour. Today, labs are stable with a creatinine of 1.4, and an improved GFR of 38. Plan: Hold lisinopril and Spironolactone, continue IVFs and treat PNA/UTI. Daily labs and monitor urine out put. (4) Anoxic brain injury Impression: The patient's , Dillon states that at the time of her event in 2003, they were planning for a divorce due to her years of uncontrolled opioid dependence. 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 This has left her disabled, wheel chair bound and incontinent of urine and stool. She has been very healthy and this has been her first trip back to any hospital since 2003. Her primary caregivers are her , Dillon and her daughter. She is taken to adult day care 2 days per week for social interaction. Plan: Turns every 2 hours, and frequent nursing cares as she cannot push the call light due to her disability. (5) Disorientation Impression: some kind of delirium, talked about pt's , it is pt's baseline. The patient had some frightening symptoms prior to admission including aphasia, and confusion which is not her normal. She is known to have mild cognitive delay. This appears to be somewhat improved since admission, but continues to be a very poor historian upon exam. Plan: Continue to monitor. (6) Diabetes mellitus type 2, insulin dependent Impression: increase Lantus on night increase slide scale, add tid of short action insulin continue ACHS The patient is prescribed Metformin and is also insulin dependent using Humalog at home. The patient's , Dillon states that she has been having several times of hypoglycemia and they have been meaning to make an appointment with endocrinology in the near future. The Metformin will be on hold as per hospital policy. A hemoglobin A1C was 6.3%, showing fair control. Plan: Continue to monitor blood sugars ACHS, Lantus at night, and SSI with meals. (7) Stented coronary artery Impression: stable, continue home meds Prior to her disabling event in 2003, she suffered from at least 2 MIs and has coronary stents. The most likely cause of this is her years of opioid dependence. 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 She denies chest pain upon admission and has a negative troponin. Plan: Daily labs, and resume SIVAN when appropriate. (8) Hypertension Impression: stable. The patient is found to have hypertension upon admission with a blood pressure of 156/88. She is prescribe lisinopril and Spironolactone at home, which are both on hold in light of her dehydration and ARCHIE. Plan: Continue to monitor and hold lisinopril due to ARCHIE. Qualifiers: Pneumonia type: due to unspecified organism Laterality: bilateral Lung location: lower lobe of lung Qualified Code(s): J18.1 - Lobar pneumonia, unspecified organism
[2018-04-23] MEDS ORDERED: ONDANSETRON 4 MG/2 ML VIAL IVP PRN (16:08)
[2018-04-23] MEDS: ATORVASTATIN 10 MG TABLET PO SCH (20:26)
[2018-04-23] MEDS: QUEtiapine 25 MG TABLET PO SCH (20:26)
[2018-04-23] MEDS ORDERED: INSULIN GLARGINE 300 UNIT/3 ML PEN SUBQ SCH (21:00)
[2018-04-24] MEDS: SODIUM CHLORIDE FLUSH 0.9% 10 ML SYRINGE IVP SCH ×2 (02:19→07:30)
[2018-04-24] MEDS: SODIUM CHLORIDE 0.9% 1,000 ML IV SCH (02:25)
[2018-04-24] MEDS: CARBOXYMETHYLCELLULOSE OPHTH DROPS EACHEYE SCH (05:57)
[2018-04-24 07:59] LABS: BASOPHILS # (AUTO) 0.1 10^3/uL (0.0-0.1); BASOPHILS % (AUTO) 0.6 %; EOSINOPHILS # (AUTO) 0.5 10^3/uL (0.0-0.7); EOSINOPHILS % (AUTO) 4.3 %; HGB - HEMOGLOBIN 12.4 g/dL (12.0-16.0); LYMPHOCYTES # (AUTO) 2.6 10^3/uL (1.5-3.5); LYMPHOCYTES % (AUTO) 22.6 %; MEAN CORPUSCULAR HEMOGLOBIN 32.7 pg (27.0-31.0); MEAN CORPUSCULAR HGB CONC 33.2 g/dL (32.0-36.0); MEAN CORPUSCULAR VOLUME 98.8 fL (81.0-99.0); MEAN PLATELET VOLUME 8.5 fL (7.9-10.8); MONOCYTES # (AUTO) 0.7 10^3/uL (0.0-1.0); MONOCYTES % (AUTO) 6.2 %; NEUTROPHILS # (AUTO) 7.7 10^3/uL (1.5-6.6); NEUTROPHILS % (AUTO) 66.3 %; PLT - PLATELET COUNT 299 10^3/uL (130-450); RED BLOOD COUNT 3.78 10^6/uL (4.20-5.40); RED CELL DISTRIBUTION WIDTH 12.9 % (12.0-15.0); WHITE BLOOD COUNT 11.6 x10^3/uL (4.8-10.8)
[2018-04-24 08:18] LABS: ALBUMIN 3.5 g/dL (3.2-5.5); ALBUMIN/GLOBULIN RATIO 1.1 (1.0-2.2); BILIRUBIN,TOTAL 0.4 mg/dL (0.2-1.0); CALCIUM 8.7 mg/dL (8.5-10.3); CREATININE 1.1 mg/dL (0.4-1.0); TOTAL PROTEIN 6.8 g/dL (6.7-8.2)
[2018-04-24] MEDS: INSULIN ASPART 300 UNIT/3 ML PEN SUBQ SCH ×4 (08:24→11:53)
[2018-04-24] MEDS: POLYETHYLENE GLYCOL 3350 17 GM PACKET PO SCH (08:28)
[2018-04-24] MEDS: BACLOFEN 10 MG TABLET PO SCH ×2 (09:04→13:12)
[2018-04-24] MEDS: SACCHAROMYCES BOULARDII 250 MG CAPSULE PO SCH (09:04)
[2018-04-24] MEDS: GABAPENTIN 100 MG CAPSULE PO SCH ×2 (09:04→13:13)
[2018-04-24] MEDS: MAGNESIUM OXIDE 400 MG TABLET PO SCH (09:04)
[2018-04-24] MEDS: AZITHROMYCIN 250 MG TABLET PO SCH (09:04)
[2018-04-24] MEDS: DICYCLOMINE 10 MG CAPSULE PO SCH ×2 (09:04→13:16)
[2018-04-24] MEDS: METOPROLOL SUCCINATE 25 MG TABLET PO SCH (09:05)
[2018-04-24] MEDS: ENOXAPARIN 30 MG/0.3 ML SYRINGE SUBQ SCH (09:05)
[2018-04-24] MEDS: cefTRIAXone 1 GM in SODIUM CHLORIDE 0.9% MINIBAG 100 ML IV SCH (09:05)
--- NOTE | 2018-04-24 12:03 | Discharge Plan ---
Discharge Plan Disposition: Home, Self Care Condition: Poor Prescriptions: cefUROXime axetil [Ceftin] 500 mg PO Q12H #14 tablet Saccharomyces Boulardii [Florastor] 250 mg PO BID #14 capsule Diet: Diabetic Activity Restrictions: Activity as Tolerated Shower Restrictions: No (fall precaution) Instruction Topics: Cefuroxime tablets Additional Instructions or Follow Up instructions: You may follow up your PCP in one week, continue to finish the prescribed antibiotics course. You were found to have pneumonia and UTI in hospital. You have been treated with antibiotics. Should your symptoms return or worsen, you may present ER or call 911 for help. No Smoking: If you smoke, Please STOP! Call for help. Follow-up with: Verónica Gil MD [Primary Care Provider] -
--- NOTE | 2018-04-24 12:07 | DISCHARGE SUMMARY ---
Discharge Summary Discharge Date: 04/24/18 Discharging Provider: AGEE Primary Care Provider: DR. Gil Condition at Discharge: Poor Discharge Disposition: 01 Home, Self Care Discharge Facility Name: home - DIAGNOSES Admission Diagnoses: (1) Pneumonia (2) Urinary tract infection (3) ARCHIE (acute kidney injury) (4) Anoxic brain injury (5) Disorientation (6) Diabetes mellitus type 2, insulin dependent (7) Stented coronary artery (8) Hypertension Discharge Diagnoses with Status of Each Condition: (1) Pneumonia 97% sats on room air, no fever or chill or cough after treatment. blood culture were negative. pt had slight elevated WBC, it seems pt had chronic slight elevated WBC. continue finish the antibiotics course prescribed (2) Urinary tract infection denies dysuria, continue finish the antibiotics course prescribed (3) ARCHIE (acute kidney injury) resolved, as the baseline (4) Anoxic brain injury stable (5) Disorientation resolved, as the baseline (6) Diabetes mellitus type 2, insulin dependent resume home regimen, follow up PCP to continue management (7) Stented coronary artery stable, follow up PCP to continue management (8) Hypertension stable, continue home regimen, follow up PCP to continue management - HPI History of Present Illness: refer from [facility] HPI for pt as the following: Nery Arredondo is a disabled 68-year old female with a past medical history of opioid dependence, anoxic brain injury/CVA in 2003 due to accidental fentanyl patch overdose, wheelchair bound, insomnia, mild cognitive delay, depression, SD, hypertension, status post coronary stenting, diabetes type 2-insulin dependent, gastric ulcers, abdominal hernia repair, and urinary/bowel incontinence. The patient began 2 days ago with nausea and vomiting with overall generalized weakness. Today the patient woke up and her , Dillon found that she could not speak as usual, and would call out, "help, help, help". EMS was called and once the patient was in the ED, labs show an elevated WBC count at 12.9, decreased kidney function with an elevated BUN at 42, and elevated creatinine of 1.9, a reduced GFR of 26, an elevated glucose of 198, and a negative troponin. A urine sample was taken, indicative of an acute UTI, and imaging on chest x-ray shows infiltrates. Vital signs were unremarkable, alt ralph slightly high B/P at 156/88. EKG showed possible atrial fibrillation. The patient is confused on exam and disabled at baseline with minimal movement of her extremities. The patient denies recent cough, fever, chills, dizziness, rashes, or chest pain. A phone interview was conducted with the patient's Dillon to obtain further data for this H & P. The patient will be admitted to the hospital for further treatment of her pneumonia/UTI, and possibly a head MRI as the patient had a concerning time of aphasia, confusion and a history of CVA. - ALLERGIES Allergies/Adverse Reactions: Allergies Allergy/AdvReac Type Severity Reaction Status Date / Time amitriptyline Allergy Severe Unknown Verified 04/20/18 13:35 propoxyphene [From Darvon] Allergy Unknown Unknown Verified 04/20/18 13:35 - MEDICATIONS Home Medications: Ambulatory Orders Medication Instructions Recorded Confirmed Baclofen 20 mg PO QID 05/14/17 04/20/18 Dicyclomine HCl 10 mg PO QID 05/14/17 04/20/18 Gabapentin 100 mg PO QID 05/14/17 04/20/18 Insulin Regular, Human [Humulin R 45 units SUBQ 0800 05/14/17 04/20/18 U-500 Kwikpen] Quetiapine Fumarate 50 mg PO QPM 05/14/17 04/20/18 Spironolactone 25 mg PO MOWEFR@0900 05/14/17 04/20/18 Insulin Regular, Human [Humulin R] 10 units SUBQ QPM 04/20/18 04/20/18 Insulin Regular, Human [Humulin R] 15 units SUBQ 1200 04/20/18 04/20/18 Lisinopril 2.5 mg PO DAILY 04/20/18 04/20/18 Metformin HCl 1,000 mg PO BIDWM 04/20/18 04/20/18 Metoprolol Succinate 12.5 mg PO DAILY 04/20/18 04/20/18 Simvastatin 40 mg PO QPM 04/20/18 04/20/18 Saccharomyces Boulardii [Florastor] 250 mg PO BID #14 capsule 04/24/18 cefUROXime axetil [Ceftin] 500 mg PO Q12H #14 tablet 04/24/18 - PHYSICAL EXAM AT DISCHARGE General Appearance: positive: No acute distress, Alert. negative: Lethargic Eyes Bilateral: positive: Normal inspection, PERRL, No lid inflammation, Conjunctivae nml ENT: positive: ENT inspection nml, Pharynx nml, No signs of dehydration. negative: Purulent nasal drainage, Pharyngeal erythema, Oral lesions Neck: positive: Nml inspection, Thyroid nml, No JVD, Trachea midline. negative: Thyromegaly, Lymphadenopathy (R), Lymphadenopathy (L), Stiff neck, Swelling/bruising, Tracheal deviation Respiratory: positive: Chest non-tender, No respiratory distress, Breath sounds nml. negative: Wheezes, Rales, Rhonchi Cardiovascular: positive: Regular rate & rhythm, No murmur, No gallop. negative: Irregularly irregular, Extrasystoles, Tachycardia, Bradycardia, JVD present, Systolic murmur, Diastolic murmur Peripheral Pulses: positive: 2+ Abdomen: positive: Non-tender, No organomegaly, Nml bowel sounds, No distention. negative: Tenderness, Guarding, Rebound Back: positive: Nml inspection. negative: CVA tenderness (R), CVA tenderness (L) Skin: positive: Color nml, No rash, Warm, Dry. negative: Cyanosis, Diaphoresis, Pallor Extremities: positive: Non-tender, Full ROM, Nml appearance. negative: Calf tenderness, Joint swelling, Gini's sign/cords Neurologic/Psychiatric: positive: Sensation nml, Mood/affect nml. negative: Weakness, Sensory loss, Facial droop, Slurred/abnml speech, Depressed mood/affect - LABS Result Diagrams: 04/24/18 07:50 04/24/18 07:50 - FOLLOW UP Follow Up: You may follow up your PCP in one week, continue to finish the prescribed antibiotics course. You were found to have pneumonia and UTI in hospital. You have been treated with antibiotics. Should your symptoms return or worsen, you may present ER or call 911 for help. - TIME SPENT Time Spent in Discharge (Minutes): 45
[2018-04-24 12:54] VITALS: BP 146/74
== END 2018-04-24 13:39 | disposition home or self-care (01) | DRG 194 ==
LOC: ED 10:40 → MS3 13:00
PROVIDERS: ADMIT Nurse Practitioner; ATTEND Nurse Practitioner Gerontology
DX: J18.9 Pneumonia, unspecified organism (principal); N30.00 Acute cystitis without hematuria; N39.0 Urinary tract infection, site not specified; I69.80 Unspecified sequelae of other cerebrovascular disease; R11.10 Vomiting, unspecified; R15.9 Full incontinence of feces; R32 Unspecified urinary incontinence; N17.9 Acute kidney failure, unspecified; G93.1 Anoxic brain damage, not elsewhere classified; I69.819 Unspecified symptoms and signs involving cognitive functions following other cerebrovascular disease; Z99.3 Dependence on wheelchair; I10 Essential (primary) hypertension; R41.0 Disorientation, unspecified; E11.9 Type 2 diabetes mellitus without complications; Z95.5 Presence of coronary angioplasty implant and graft; I25.2 Old myocardial infarction; F11.21 Opioid dependence, in remission
CPT/HCPCS: 36415; 70450; 71046; 80053; 81001; 81003; 83036; 83690; 83735; 83880; 84484; 85025; 87040; 87045; 87046; 87086; 87493; 93005; 93306; 94640; 96360; 99283; 99285

== ENCOUNTER 2018-06-14 13:08 | Outpatient (CLI) | payer MEDICARE, MEDICAID ==
[2018-06-14 18:24] LABS: ALBUMIN 3.9 g/dL (3.2-5.5); BILIRUBIN,TOTAL 0.4 mg/dL (0.2-1.0); CALCIUM 9.1 mg/dL (8.5-10.3); CREATININE 0.8 mg/dL (0.4-1.0); TOTAL PROTEIN 7.7 g/dL (6.7-8.2)
== END 2018-06-14 13:09 | disposition home or self-care (01) ==
LOC: LAB.WCP 13:08
PROVIDERS: ATTEND Family Medicine
DX: I10 Essential (primary) hypertension (principal)
CPT/HCPCS: 36415; 80053

== ENCOUNTER 2018-10-15 08:00 | Outpatient (CLI) | payer MEDICARE, MEDICAID ==
[2018-10-15 13:30] LABS: BASOPHILS % (AUTO) 0.3 %; EOSINOPHILS # (AUTO) 0.2 10^3/uL (0.0-0.7); EOSINOPHILS % (AUTO) 1.7 %; HGB - HEMOGLOBIN 12.1 g/dL (12.0-16.0); LYMPHOCYTES # (AUTO) 2.1 10^3/uL (1.5-3.5); LYMPHOCYTES % (AUTO) 20.3 %; MEAN CORPUSCULAR HEMOGLOBIN 31.4 pg (27.0-31.0); MEAN CORPUSCULAR HGB CONC 33.2 g/dL (32.0-36.0); MEAN CORPUSCULAR VOLUME 94.5 fL (81.0-99.0); MEAN PLATELET VOLUME 8.9 fL (7.9-10.8); MONOCYTES # (AUTO) 0.6 10^3/uL (0.0-1.0); NEUTROPHILS # (AUTO) 7.3 10^3/uL (1.5-6.6); NEUTROPHILS % (AUTO) 71.7 %; PLT - PLATELET COUNT 303 10^3/uL (130-450); RED BLOOD COUNT 3.84 10^6/uL (4.20-5.40); RED CELL DISTRIBUTION WIDTH 13.1 % (12.0-15.0); WHITE BLOOD COUNT 10.2 x10^3/uL (4.8-10.8)
[2018-10-15 15:47] LABS: CREATININE,URINE 71.3 mg/dL; MICROALBUM/CREATININE RATIO,UR 9.8 ug/mg (<30.0); MICROALBUMIN,URINE 0.7 mg/dL (0-300.0)
[2018-10-15 15:48] LABS: ALBUMIN 4.1 g/dL (3.2-5.5); ALBUMIN/GLOBULIN RATIO 1.2 (1.0-2.2); ALKALINE PHOSPHATASE 50 IU/L (42-121); ALT ALANINE AMINOTRANSFERASE 14 IU/L (10-60); AST ASPARTATE AMINOTRANSFERASE 17 IU/L (10-42); BILIRUBIN,TOTAL 0.5 mg/dL (0.2-1.0); BUN - BLOOD UREA NITROGEN 19 mg/dL (6-20); CALCIUM 9.4 mg/dL (8.5-10.3); CARBON DIOXIDE - CO2 29 mmol/L (21-32); CHLORIDE 95 mmol/L (101-111); CHOLESTEROL 155 mg/dL; CREATININE 0.7 mg/dL (0.4-1.0); GFR - MDRD 84 (>89); GLUCOSE 184 mg/dL (70-100); HDL CHOLESTEROL 52 mg/dL; LDL CHOLESTEROL,CALCULATED 80 mg/dL; LDL/HDL RATIO 1.5 (<4.4); SODIUM 137 mmol/L (135-145); TOTAL PROTEIN 7.6 g/dL (6.7-8.2); VLDL CHOLESTEROL 23 mg/dL
[2018-10-15 17:49] LABS: HB2 TOTAL 13.2 g/dL; HEMOGLOBIN A1C 0.67 g/dL; HEMOGLOBIN A1C % 6.8 % (4.6-6.2)
== END 2018-10-15 08:01 | disposition home or self-care (01) ==
LOC: LAB.WCP 08:00
PROVIDERS: ATTEND Family Medicine
DX: E78.5 Hyperlipidemia, unspecified (principal); I10 Essential (primary) hypertension; E11.9 Type 2 diabetes mellitus without complications; F32.9 Major depressive disorder, single episode, unspecified; Z79.4 Long term (current) use of insulin; I63.9 Cerebral infarction, unspecified
CPT/HCPCS: 36415; 80053; 80061; 82043; 82570; 83036; 83721; 84443; 85025

== ENCOUNTER → 2019-08-22 | Outpatient (CLI) | payer MEDICARE, MEDICAID ==
[2019-08-22 18:56] LABS: ALBUMIN 3.9 g/dL (3.2-5.5); ALBUMIN/GLOBULIN RATIO 1.2 (1.0-2.2); ALKALINE PHOSPHATASE 49 IU/L (42-121); ALT ALANINE AMINOTRANSFERASE 11 IU/L (10-60); AST ASPARTATE AMINOTRANSFERASE 17 IU/L (10-42); BILIRUBIN,TOTAL 0.6 mg/dL (0.2-1.0); BUN - BLOOD UREA NITROGEN 14 mg/dL (6-20); CALCIUM 9.1 mg/dL (8.5-10.3); CARBON DIOXIDE - CO2 28 mmol/L (21-32); CHLORIDE 97 mmol/L (101-111); CHOL/HDL RATIO 2.7 (<4.4); CHOLESTEROL 135 mg/dL; CREATININE 0.7 mg/dL (0.4-1.0); GFR - MDRD 83 (>89); GLUCOSE 132 mg/dL (70-100); HDL CHOLESTEROL 50 mg/dL; LDL CHOLESTEROL,CALCULATED 63 mg/dL; LDL/HDL RATIO 1.3 (<4.4); SODIUM 138 mmol/L (135-145); TOTAL PROTEIN 7.2 g/dL (6.7-8.2); VLDL CHOLESTEROL 22 mg/dL
[2019-08-22 19:43] LABS: HB2 TOTAL 12.4 g/dL; HEMOGLOBIN A1C 0.71 g/dL; HEMOGLOBIN A1C % 7.4 % (4.6-6.2)
[2019-08-23 12:59] LABS: HEPATITIS C ANTIBODY NON-REACTIVE (NON-REACTIVE)
== END ==
LOC: LAB.WCP 14:08
PROVIDERS: ATTEND Family Medicine
DX: E11.9 Type 2 diabetes mellitus without complications (principal); E78.5 Hyperlipidemia, unspecified; Z11.59 Encounter for screening for other viral diseases
CPT/HCPCS: 36415; 80053; 80061; 83036; 83721; 86803

== ENCOUNTER 2020-02-20 13:31 | Outpatient (CLI) | payer MEDICARE, MEDICAID ==
[2020-02-20 18:15] LABS: BASOPHILS # (AUTO) 0.1 10^3/uL (0.0-0.1); BASOPHILS % (AUTO) 0.5 %; EOSINOPHILS # (AUTO) 0.3 10^3/uL (0.0-0.7); EOSINOPHILS % (AUTO) 2.9 %; LYMPHOCYTES # (AUTO) 2.2 10^3/uL (1.5-3.5); LYMPHOCYTES % (AUTO) 21.7 %; MEAN CORPUSCULAR HEMOGLOBIN 31.7 pg (27.0-31.0); MEAN CORPUSCULAR HGB CONC 31.4 g/dL (32.0-36.0); MEAN CORPUSCULAR VOLUME 101.1 fL (81.0-99.0); MONOCYTES # (AUTO) 0.7 10^3/uL (0.0-1.0); MONOCYTES % (AUTO) 6.8 %; NEUTROPHILS # (AUTO) 6.9 10^3/uL (1.5-6.6); NEUTROPHILS % (AUTO) 67.6 %; PLT - PLATELET COUNT 278 10^3/uL (130-450); RED BLOOD COUNT 3.78 10^6/uL (4.20-5.40); RED CELL DISTRIBUTION WIDTH 13.2 % (12.0-15.0); WHITE BLOOD COUNT 10.2 x10^3/uL (4.8-10.8)
[2020-02-20 18:48] LABS: HB2 TOTAL 12.9 g/dL; HEMOGLOBIN A1C 0.61 g/dL; HEMOGLOBIN A1C % 6.5 % (4.6-6.2)
[2020-02-20 19:03] LABS: ALBUMIN/GLOBULIN RATIO 1.3 (1.0-2.2); ALKALINE PHOSPHATASE 46 IU/L (42-121); ALT ALANINE AMINOTRANSFERASE 14 IU/L (10-60); AST ASPARTATE AMINOTRANSFERASE 16 IU/L (10-42); BILIRUBIN,TOTAL 0.4 mg/dL (0.2-1.0); BUN - BLOOD UREA NITROGEN 13 mg/dL (6-20); CARBON DIOXIDE - CO2 27 mmol/L (21-32); CHLORIDE 99 mmol/L (101-111); CHOL/HDL RATIO 3.1 (<4.4); CHOLESTEROL 156 mg/dL; CREATININE 0.8 mg/dL (0.4-1.0); GLUCOSE 185 mg/dL (70-100); HDL CHOLESTEROL 51 mg/dL; LDL CHOLESTEROL,CALCULATED 84 mg/dL; LDL/HDL RATIO 1.6 (<4.4); SODIUM 139 mmol/L (135-145); TOTAL PROTEIN 7.2 g/dL (6.7-8.2); VLDL CHOLESTEROL 21 mg/dL
== END 2020-02-20 23:59 | disposition home or self-care (01) ==
LOC: LAB.WCP 13:31
PROVIDERS: ATTEND Family Medicine
DX: E11.9 Type 2 diabetes mellitus without complications (principal)
CPT/HCPCS: 36415; 80053; 80061; 83036; 83721; 84443; 85025

== ENCOUNTER 2020-11-01 08:00 | Outpatient (CLI) | payer MEDICARE, MEDICAID ==
[2020-11-01 18:19] LABS: BASOPHILS # (AUTO) 0.1 10^3/uL (0.0-0.1); BASOPHILS % (AUTO) 0.6 %; EOSINOPHILS # (AUTO) 0.2 10^3/uL (0.0-0.7); EOSINOPHILS % (AUTO) 2.2 %; HCT - HEMATOCRIT 36.5 % (37.0-47.0); HGB - HEMOGLOBIN 11.7 g/dL (12.0-16.0); LYMPHOCYTES # (AUTO) 3.2 10^3/uL (1.5-3.5); LYMPHOCYTES % (AUTO) 31.1 %; MEAN CORPUSCULAR HEMOGLOBIN 31.7 pg (27.0-31.0); MEAN CORPUSCULAR HGB CONC 32.1 g/dL (32.0-36.0); MEAN CORPUSCULAR VOLUME 98.9 fL (81.0-99.0); MEAN PLATELET VOLUME 11.3 fL (7.9-10.8); MONOCYTES # (AUTO) 0.6 10^3/uL (0.0-1.0); MONOCYTES % (AUTO) 5.6 %; NEUTROPHILS # (AUTO) 6.3 10^3/uL (1.5-6.6); NEUTROPHILS % (AUTO) 60.2 %; PLT - PLATELET COUNT 275 10^3/uL (130-450); RED BLOOD COUNT 3.69 10^6/uL (4.20-5.40); RED CELL DISTRIBUTION WIDTH 13.4 % (12.0-15.0); WHITE BLOOD COUNT 10.4 x10^3/uL (4.8-10.8)
[2020-11-01 18:44] LABS: ALBUMIN 3.9 g/dL (3.2-5.5); ALBUMIN/GLOBULIN RATIO 1.1 (1.0-2.2); ALKALINE PHOSPHATASE 59 IU/L (42-121); ALT ALANINE AMINOTRANSFERASE 14 IU/L (10-60); AST ASPARTATE AMINOTRANSFERASE 14 IU/L (10-42); BILIRUBIN,TOTAL 0.5 mg/dL (0.2-1.0); BUN - BLOOD UREA NITROGEN 17 mg/dL (6-20); CARBON DIOXIDE - CO2 28 mmol/L (21-32); CHLORIDE 98 mmol/L (101-111); CHOL/HDL RATIO 2.8 (<4.4); CHOLESTEROL 130 mg/dL; CREATININE 0.7 mg/dL (0.4-1.0); GFR - MDRD 83 (>89); GLUCOSE 170 mg/dL (70-100); HDL CHOLESTEROL 47 mg/dL; LDL CHOLESTEROL,CALCULATED 62 mg/dL; LDL/HDL RATIO 1.3 (<4.4); POTASSIUM 4.4 mmol/L (3.5-5.0); SODIUM 137 mmol/L (135-145); TOTAL PROTEIN 7.3 g/dL (6.7-8.2); TRIGLYCERIDES 106 mg/dL; VLDL CHOLESTEROL 21 mg/dL
[2020-11-01 18:50] LABS: THYROID STIMULATING HORMONE 1.65 uIU/mL (0.34-5.60)
[2020-11-01 20:43] LABS: ESTIMATED AVERAGE GLUCOSE 148 mg/dL (70-100); HEMOGLOBIN A1c% 6.8 % (4.27-6.07)
== END 2020-11-01 23:59 | disposition home or self-care (01) ==
LOC: LAB.WCP 08:00
PROVIDERS: ATTEND Family Medicine
DX: E11.9 Type 2 diabetes mellitus without complications (principal)
CPT/HCPCS: 36415; 80053; 80061; 83036; 83721; 84443; 85025

== ENCOUNTER 2021-05-03 08:00 | Outpatient (CLI) | payer MEDICARE, MEDICAID ==
[2021-05-03 17:58] LABS: CALCIUM 9.7 mg/dL (8.5-10.3); CREATININE 0.7 mg/dL (0.4-1.0); POTASSIUM 4.7 mmol/L (3.5-5.0)
[2021-05-03 20:11] LABS: ESTIMATED AVERAGE GLUCOSE 154 mg/dL (70-100)
== END 2021-05-03 23:59 | disposition home or self-care (01) ==
LOC: LAB.WCP 08:00
PROVIDERS: ATTEND Family Medicine
DX: E11.9 Type 2 diabetes mellitus without complications (principal)
CPT/HCPCS: 36415; 80048; 83036

== ENCOUNTER 2021-12-30 10:12 | Outpatient (CLI) | payer MEDICARE, MEDICAID ==
[2021-12-30 12:44] LABS: ALBUMIN 3.9 g/dL (3.2-5.5); ALKALINE PHOSPHATASE 56 IU/L (42-121); ALT ALANINE AMINOTRANSFERASE < 10 IU/L (10-60); AST ASPARTATE AMINOTRANSFERASE 13 IU/L (10-42); BILIRUBIN,TOTAL 0.4 mg/dL (0.2-1.0); BUN - BLOOD UREA NITROGEN 12 mg/dL (6-20); CARBON DIOXIDE - CO2 30 mmol/L (21-32); CHLORIDE 95 mmol/L (101-111); CREATININE 0.7 mg/dL (0.4-1.0); GFR - MDRD 83 (>89); GLUCOSE 209 mg/dL (70-100); POTASSIUM 5.1 mmol/L (3.5-5.0); SODIUM 135 mmol/L (135-145); TOTAL PROTEIN 7.4 g/dL (6.7-8.2)
[2021-12-30 12:45] LABS: ALBUMIN/GLOBULIN RATIO 1.1 (1.0-2.2); CHOL/HDL RATIO 2.6 (<4.4); CHOLESTEROL 125 mg/dL; HDL CHOLESTEROL 49 mg/dL; LDL CHOLESTEROL,CALCULATED 59 mg/dL; LDL/HDL RATIO 1.2 (<4.4); TRIGLYCERIDES 84 mg/dL; VLDL CHOLESTEROL 17 mg/dL
[2021-12-30 12:51] LABS: THYROID STIMULATING HORMONE 1.28 uIU/mL (0.34-5.60)
[2021-12-30 13:08] LABS: % IRON SATURATION 24 % (20-50); IRON 70 ug/dL (28-170); TOTAL IRON BINDING CAPACITY 295 ug/dL (250-450); TRANSFERRIN 211 mg/dL (192-382)
[2021-12-30 13:29] LABS: ESTIMATED AVERAGE GLUCOSE 146 mg/dL (70-100); HEMOGLOBIN A1c% 6.7 % (4.27-6.07)
== END 2021-12-30 10:13 | disposition home or self-care (01) ==
LOC: LAB.N 10:12
PROVIDERS: ATTEND Physician Assistant
DX: E11.9 Type 2 diabetes mellitus without complications (principal); E78.5 Hyperlipidemia, unspecified; Z13.29 Encounter for screening for other suspected endocrine disorder; I10 Essential (primary) hypertension; R25.3 Fasciculation
CPT/HCPCS: 36415; 80053; 80061; 82728; 83036; 83540; 83721; 84443; 84466; 85025

== ENCOUNTER 2022-01-03 08:00 | Outpatient (CLI) | payer MEDICARE, MEDICAID ==
[2022-01-03 11:54] LABS: BASOPHILS % (AUTO) 0.2 %; EOSINOPHILS % (AUTO) 0.1 %; HCT - HEMATOCRIT 36.6 % (37.0-47.0); HGB - HEMOGLOBIN 12.2 g/dL (12.0-16.0); LYMPHOCYTES # (AUTO) 1.2 10^3/uL (1.5-3.5); LYMPHOCYTES % (AUTO) 8.8 %; MEAN CORPUSCULAR HEMOGLOBIN 32.3 pg (27.0-31.0); MEAN CORPUSCULAR HGB CONC 33.3 g/dL (32.0-36.0); MEAN CORPUSCULAR VOLUME 96.8 fL (81.0-99.0); MEAN PLATELET VOLUME 10.8 fL (7.9-10.8); MONOCYTES # (AUTO) 0.5 10^3/uL (0.0-1.0); MONOCYTES % (AUTO) 3.4 %; NEUTROPHILS # (AUTO) 11.5 10^3/uL (1.5-6.6); PLT - PLATELET COUNT 305 10^3/uL (130-450); RED BLOOD COUNT 3.78 10^6/uL (4.20-5.40); RED CELL DISTRIBUTION WIDTH 12.8 % (12.0-15.0); WHITE BLOOD COUNT 13.2 x10^3/uL (4.8-10.8)
== END 2022-01-03 23:59 | disposition home or self-care (01) ==
LOC: LAB.N 08:00
PROVIDERS: ATTEND Internal Medicine
DX: I10 Essential (primary) hypertension (principal)
CPT/HCPCS: 36415; 85025

== ENCOUNTER 2022-01-03 13:42 | Emergency (ER) | payer MEDICARE, MEDICAID ==
--- NOTE | 2022-01-03 15:46 | ED Physician Documentation ---
History of Present Illness - Stated complaint Stated Complaint: LETHARGIC,VOMITTING - Chief complaint Chief Complaint: Neuro - History obtained from History obtained from: Patient, Family - Additonal information Additional information: PT is brought to the emergency department by for CC of "lethargy" for the past approximately week. clarifies that the pt has been less energetic and talkative than usual, but not drowsy or altered. She has not had any other symptoms of illness. No fever or chills, cough, SOB, chest or abdominal pain, nausea, diarrhea, or dysuria. states the pt was just started on a new medication a couple of weeks ago, and sx started shortly after that. He notes that the pt does drink water, though probably not as much as she should. Pt denies complaints. She has a distant history of stroke, and has chronic loss of use of her bilateral upper extremities, and is largely bed- bound. Review of Systems Ten Systems: 10 systems reviewed and negative Constitutional: reports: Reviewed and negative Eyes: reports: Reviewed and negative Ears: reports: Reviewed and negative Nose: reports: Reviewed and negative Throat: reports: Reviewed and negative Cardiac: reports: Reviewed and negative Respiratory: reports: Reviewed and negative GI: reports: Reviewed and negative : reports: Reviewed and negative Skin: reports: Reviewed and negative Musculoskeletal: reports: Reviewed and negative Neurologic: reports: Reviewed and negative Psychiatric: reports: Reviewed and negative Endocrine: reports: Reviewed and negative Immunocompromised: reports: Reviewed and negative PD PAST MEDICAL HISTORY - Past Medical History Past Medical History: Yes Cardiovascular: Hypertension, [place], Murmur Respiratory: None Neuro: None Endocrine/Autoimmune: Type 2 diabetes GI: Ulcers, Other MANUFACTURING TEAM LEADER: None : Incontinence, Nocturia, Frequency HEENT: None Psych: Depression, Other Musculoskeletal: Quadriplegia Derm: None - Past Surgical History Past Surgical History: Yes General: Hiatal hernia repair, Other Cardiovascular: Coronary stent, Cardiac catheterization, Angioplasty HEENT: Tonsil/Adenoidectomy - Present Medications Home Medications: Ambulatory Orders Medication Instructions Recorded Confirmed Baclofen 20 mg PO QID 05/14/17 04/20/18 Dicyclomine HCl 10 mg PO QID 05/14/17 04/20/18 Gabapentin 100 mg PO QID 05/14/17 04/20/18 Insulin Regular, Human [Humulin R 45 units SUBQ 0800 05/14/17 04/20/18 U-500 Kwikpen] Quetiapine Fumarate 50 mg PO QPM 05/14/17 04/20/18 Spironolactone 25 mg PO MOWEFR@0900 05/14/17 04/20/18 Insulin Regular, Human [Humulin R] 10 units SUBQ QPM 04/20/18 04/20/18 Insulin Regular, Human [Humulin R] 15 units SUBQ 1200 04/20/18 04/20/18 Metformin HCl 1,000 mg PO BIDWM 04/20/18 04/20/18 Metoprolol Succinate 12.5 mg PO DAILY 04/20/18 04/20/18 Simvastatin 40 mg PO QPM 04/20/18 04/20/18 lisinopriL [Lisinopril] 2.5 mg PO DAILY 04/20/18 04/20/18 Saccharomyces Boulardii [Florastor] 250 mg PO BID #14 capsule 04/24/18 cefUROXime axetiL [Ceftin] 500 mg PO Q12H #14 tablet 04/24/18 - Allergies Allergies/Adverse Reactions: Allergies Allergy/AdvReac Type Severity Reaction Status Date / Time amitriptyline Allergy Severe Unknown Verified 01/03/22 13:51 propoxyphene [From Darvon] Allergy Unknown Unknown Verified 01/03/22 13:51 - Social History Does the pt smoke?: No Smoking Status: Never smoker Does the pt drink ETOH?: No Does the pt have substance abuse?: No - Immunizations Immunizations are current?: No Immunizations: TDAP >10years/unknown - POLST Patient has POLST: No POLST Status: Full Code PD ED PE NORMAL - Vitals Vital signs reviewed: Yes - General General: No acute distress, Well developed/nourished, Other (Alert, conversant) - HEENT HEENT: Atraumatic, PERRL, EOMI, Moist mucous membranes - Neck Neck: Supple, no meningeal sign - Cardiac Cardiac: RRR, No murmur, Strong equal pulses - Respiratory Respiratory: No respiratory distress, Clear bilaterally - Abdomen Abdomen: Soft, Non tender, Non distended - Derm Derm: Normal color, Warm and dry, No rash - Extremities Extremities: Other (Contracted bilateral upper extremities. No lower extremity edema.) - Neuro Neuro: qa internship 2-12 intact, Other (Alert, answers questions.) - Psych Psych: Normal mood, Normal affect Results - Vitals Vitals: Oxygen O2 Source Room air - Labs Labs: Laboratory Tests 01/03/22 15:24 Nasal Adenovirus (PCR) NOT DETECTED Nasal B. parapertussis DNA (PCR) NOT DETECTED Nasal Coronavir 229E PCR NOT DETECTED Nasal Coronavir HKU1 PCR NOT DETECTED Nasal Coronavir NL63 PCR NOT DETECTED Nasal Coronavir OC43 PCR NOT DETECTED Nasal Enterovir/Rhinovir PCR NOT DETECTED Nasal Influenza B PCR NOT DETECTED Nasal Influenza A PCR NOT DETECTED Nasal Parainfluen 1 PCR NOT DETECTED Nasal Parainfluen 2 PCR NOT DETECTED Nasal Parainfluen 3 PCR NOT DETECTED Nasal Parainfluen 4 PCR NOT DETECTED Nasal RSV (PCR) NOT DETECTED Nasal B.pertussis DNA PCR NOT DETECTED Nasal C.pneumoniae (PCR) NOT DETECTED Andrews Human Metapneumo PCR NOT DETECTED Nasal M.pneumoniae (PCR) NOT DETECTED Nasal SARS-CoV-2 (PCR) NOT DETECTED PD MEDICAL DECISION MAKING - ED course Complexity details: reviewed old records, reviewed results, re-evaluated patient, considered differential, d/w patient, d/w family ED course: The pt was worked up with labs and UA, which were unremarkable. Given that she was not vomiting, was alert, had normal kidney function on labs, and had incredibly difficult peripheral access, I did not have staff attempt an IV on the pt, but rather, encouraged the pt to drink plenty of water. She does not have new focal deficits, and actually, was alert and coherent. I have encouraged the to have the pt see her PCP to discuss her medication regimen, particularly in light of the decreased energy since starting the new medication. We have discussed the usual indications for return. Departure - Departure Disposition: 01 Home, Self Care Clinical Impression: Altered behavior Condition: Stable Instructions: ED Altered Loc Comments: The labs from the past week actually look quite good. There is no evidence of slowed kidney function that would indicate significant dehydration. Additionally, The thyroid function was found to be normal. It is possible that the Keppra is the reason for the slowdown in mental functioning and decreased energy level. A viral panel has been sent and is pending at this time, as any of the many common viruses going around could cause some degree of fatigue and weakness. At this point in time, the viral panel is still pending. It can sometimes take up to several hours to come back, so we will call you with any positive results. We do not call back negative results; however, if you wish to follow-up the results online, you may go to our hospital website at [email or web address], click on the "My [facility]" tab, and sign up for the patient portal. Please follow-up with your primary care physician to discuss the medications and whether any dosing should be changed. Discharge Date/Time: 01/03/22 15:54
[2022-01-03 15:53] VITALS: BP 131/64
[2022-01-03 16:27] LABS: B. PARAPERTUSSIS- RESP PCR PAN NOT DETECTED; B. PERTUSSIS- RESP PCR PANEL NOT DETECTED; C. PNEUMONIAE- RESP PCR PANEL NOT DETECTED; CORONAVIRUS 229E-RESP PCR NOT DETECTED; CORONAVIRUS HKU1-RESP PCR NOT DETECTED; CORONAVIRUS NL63-RESP PCR NOT DETECTED; CORONAVIRUS OC43-RESP PCR NOT DETECTED; HUMAN METAPNEUMOVIRUS NOT DETECTED; INFLUENZA A- RESP PCR PANEL NOT DETECTED; INFLUENZA B - RESP PCR PANEL NOT DETECTED; M. PNEUMONIAE- RESP PCR PANEL NOT DETECTED; PARAINFLUENZA VIRUS 1 NOT DETECTED; PARAINFLUENZA VIRUS 2 NOT DETECTED; PARAINFLUENZA VIRUS 3 NOT DETECTED; PARAINFLUENZA VIRUS 4 NOT DETECTED; RHINOVIRUS/ENTEROVIRUS NOT DETECTED; RSV- RESP PCR PANEL NOT DETECTED; SARS-CoV-2 -RESP PCR PANEL NOT DETECTED
== END 2022-01-03 15:54 | disposition home or self-care (01) ==
LOC: ED 13:42
DX: R41.82 Altered mental status, unspecified (principal); I10 Essential (primary) hypertension; E11.9 Type 2 diabetes mellitus without complications; Z79.4 Long term (current) use of insulin; Z20.822 Contact with and (suspected) exposure to COVID-19
CPT/HCPCS: 87633; 99283

== ENCOUNTER 2022-01-14 10:27 | Outpatient (CLI) | payer MEDICARE, MEDICAID | END 2022-01-14 10:28 | disposition critical access hospital (66) | LOC: EMS 10:27 | DX: R56.9 Unspecified convulsions (principal) | CPT/HCPCS: A0425; A0427 ==

== ENCOUNTER 2022-01-14 10:44 | Inpatient (IN) | payer MEDICARE, MEDICAID ==
[2022-01-14] MEDS ORDERED: NALOXONE 0.4 MG/ML VIAL IVP STA (11:03)
[2022-01-14 11:13] LABS: BASOPHILS # (AUTO) 0.1 10^3/uL (0.0-0.1); BASOPHILS % (AUTO) 0.5 %; EOSINOPHILS # (AUTO) 0.3 10^3/uL (0.0-0.7); EOSINOPHILS % (AUTO) 2.2 %; HCT - HEMATOCRIT 34.1 % (37.0-47.0); HGB - HEMOGLOBIN 11.2 g/dL (12.0-16.0); LYMPHOCYTES # (AUTO) 1.8 10^3/uL (1.5-3.5); LYMPHOCYTES % (AUTO) 15.6 %; MEAN CORPUSCULAR HEMOGLOBIN 32.6 pg (27.0-31.0); MEAN CORPUSCULAR HGB CONC 32.8 g/dL (32.0-36.0); MEAN CORPUSCULAR VOLUME 99.1 fL (81.0-99.0); MEAN PLATELET VOLUME 9.3 fL (7.9-10.8); MONOCYTES # (AUTO) 0.4 10^3/uL (0.0-1.0); MONOCYTES % (AUTO) 3.4 %; NEUTROPHILS # (AUTO) 8.8 10^3/uL (1.5-6.6); PLT - PLATELET COUNT 434 10^3/uL (130-450); RED BLOOD COUNT 3.44 10^6/uL (4.20-5.40); RED CELL DISTRIBUTION WIDTH 12.9 % (12.0-15.0); WHITE BLOOD COUNT 11.5 x10^3/uL (4.8-10.8)
[2022-01-14 11:30] LABS: ACETAMINOPHEN < 10 ug/mL (10-30); ALBUMIN 3.2 g/dL (3.2-5.5); ALBUMIN/GLOBULIN RATIO 0.9 (1.0-2.2); ALKALINE PHOSPHATASE 60 IU/L (42-121); ALT ALANINE AMINOTRANSFERASE < 10 IU/L (10-60); AST ASPARTATE AMINOTRANSFERASE 16 IU/L (10-42); BILIRUBIN,TOTAL 0.5 mg/dL (0.2-1.0); BUN - BLOOD UREA NITROGEN 7 mg/dL (6-20); CALCIUM 9.1 mg/dL (8.5-10.3); CARBON DIOXIDE - CO2 24 mmol/L (21-32); CHLORIDE 95 mmol/L (101-111); CREATININE 0.7 mg/dL (0.4-1.0); ETOH - ETHANOL < 5.0 mg/dL; GFR - MDRD 83 (>89); GLUCOSE 276 mg/dL (70-100); LIPASE 25 U/L (22-51); POTASSIUM 4.4 mmol/L (3.5-5.0); SALICYLATE < 6.0 mg/dL; SODIUM 139 mmol/L (135-145); TOTAL PROTEIN 6.9 g/dL (6.7-8.2)
--- NOTE | 2022-01-14 11:30 | XRAY Report ---
PROCEDURE: Chest 1 View X-Ray INDICATIONS: Dyspnea, seizure TECHNIQUE: One view of the chest was acquired. COMPARISON: 04/20/2018 FINDINGS: Surgical changes and devices: None. Lungs and pleura: No pleural effusions or pneumothorax. Lungs are clear. Mediastinum: Mediastinal contours appear normal. Heart size is normal. Bones and chest wall: No suspicious bony lesions. Overlying soft tissues appear unremarkable. IMPRESSION: No acute cardiopulmonary process demonstrated radiographically. Reviewed by: Priyank Melendez MD on 01/14/2022 11:29 AM PDT Approved by: Priyank Melendez MD on 01/14/2022 11:29 AM PDT Station ID: [id number]
[2022-01-14] MEDS ORDERED: PHENYTOIN INJ 500 MG in SODIUM CHLORIDE 0.9% 100ML 100 ML IV STA (11:36)
--- NOTE | 2022-01-14 11:44 | ED Physician Documentation ---
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 She had been on Keppra at home, but this was stopped a few weeks ago because it was making her fatigued. She was transitioned to gabapentin. She reportedly had 3-4 seizures this morning at home. They all lasted between 1 and 2 minutes. Recovered completely between events. 911 was called. Had another witnessed seizure with EMS. She was given Versed by EMS. Subsequently her respiratory drive decreased and had respiratory depression. She was assisted with breathing through a BVM. Review of Systems Unable to obtain: Unresponsive, [facility] PD PAST MEDICAL HISTORY - Past Medical History Past Medical History: Yes Cardiovascular: Hypertension, [place], Murmur Respiratory: None Neuro: None Endocrine/Autoimmune: Type 2 diabetes GI: Ulcers, Other PAYMENT COLLECTOR: None : Incontinence, Nocturia, Frequency HEENT: None Psych: Depression, Other Musculoskeletal: Quadriplegia Derm: None - Past Surgical History Past Surgical History: Yes General: Hiatal hernia repair, Other Cardiovascular: Coronary stent, Cardiac catheterization, Angioplasty HEENT: Tonsil/Adenoidectomy - Present Medications Home Medications: Ambulatory Orders Medication Instructions Recorded Confirmed Baclofen 20 mg PO QID 05/14/17 04/20/18 Dicyclomine HCl 10 mg PO QID 05/14/17 04/20/18 Gabapentin 100 mg PO QID 05/14/17 04/20/18 Insulin Regular, Human [Humulin R 45 units SUBQ 0800 05/14/17 04/20/18 U-500 Kwikpen] Quetiapine Fumarate 50 mg PO QPM 05/14/17 04/20/18 Spironolactone 25 mg PO MOWEFR@0900 05/14/17 04/20/18 Insulin Regular, Human [Humulin R] 10 units SUBQ QPM 04/20/18 04/20/18 Insulin Regular, Human [Humulin R] 15 units SUBQ 1200 04/20/18 04/20/18 Metformin HCl 1,000 mg PO BIDWM 04/20/18 04/20/18 Metoprolol Succinate 12.5 mg PO DAILY 04/20/18 04/20/18 Simvastatin 40 mg PO QPM 04/20/18 04/20/18 lisinopriL [Lisinopril] 2.5 mg PO DAILY 04/20/18 04/20/18 Saccharomyces Boulardii [Florastor] 250 mg PO BID #14 capsule 04/24/18 cefUROXime axetiL [Ceftin] 500 mg PO Q12H #14 tablet 04/24/18 - Allergies Allergies/Adverse Reactions: Allergies Allergy/AdvReac Type Severity Reaction Status Date / Time amitriptyline Allergy Severe Unknown Verified 01/03/22 13:51 propoxyphene [From Darvon] Allergy Unknown Unknown Verified 01/03/22 13:51 - Social History Does the pt smoke?: No Smoking Status: Never smoker Does the pt drink ETOH?: No Does the pt have substance abuse?: No - Immunizations Immunizations are current?: No Immunizations: TDAP >10years/unknown - POLST Patient has POLST: No POLST Status: Full Code PD ED PE NORMAL - Vitals Vital signs reviewed: Yes - General General: No acute distress, Other (drowsy, withdraws from pain) - HEENT HEENT: Moist mucous membranes - Neck Neck: Supple, no meningeal sign - Cardiac Cardiac: RRR - Respiratory Respiratory: No respiratory distress, Clear bilaterally - Abdomen Abdomen: Soft, Non tender, Non distended - Derm Derm: Warm and dry - Extremities Extremities: No deformity - Neuro Eye Opening: To Pain Motor: Withdraws to Pain Verbal: Incomprehensible GCS Score: 8 Results - Vitals Vitals: Vital Signs - 24 hr 01/14/22 01/14/22 01/14/22 10:45 11:17 11:32 Temperature 36.4 C L Heart Rate 110 H 98 111 H Respiratory 20 20 20 Rate Blood Pressure 143/82 H 132/74 H 162/84 H O2 Saturation 100 95 100 01/14/22 01/14/22 01/14/22 11:47 12:16 12:30 Temperature Heart Rate 98 96 80 Respiratory 24 22 20 Rate Blood Pressure 142/87 H 130/86 H 126/87 H O2 Saturation 98 95 98 01/14/22 01/14/22 01/14/22 13:15 13:30 13:43 Temperature Heart Rate 94 94 91 Respiratory 20 20 20 Rate Blood Pressure 118/71 118/71 O2 Saturation 100 100 100 01/14/22 01/14/22 01/14/22 14:11 14:41 15:00 Temperature 36.9 C Heart Rate 80 81 85 Respiratory 18 18 28 H Rate Blood Pressure 130/71 130/71 148/77 H O2 Saturation 100 98 98 01/14/22 15:30 Temperature Heart Rate 81 Respiratory 23 Rate Blood Pressure 164/75 H O2 Saturation 98 Oxygen O2 Source Nasal cannula - EKG (time done) 1109 Rate: Rate (enter#) (100) Rhythm: Sinus tachycardia Morris: Normal Intervals: Normal LA QRS: LVH Ischemia: Normal ST segments - Labs Labs: Laboratory Tests 01/14/22 01/14/22 01/14/22 11:07 11:07 11:07 WBC 11.5 H RBC 3.44 L Hgb 11.2 L Hct 34.1 L MCV 99.1 H MCH 32.6 H MCHC 32.8 RDW 12.9 Plt Count 434 MPV 9.3 Neut # (Auto) 8.8 H Lymph # (Auto) 1.8 Dolores # (Auto) 0.4 Eos # (Auto) 0.3 Baso # (Auto) 0.1 Absolute Nucleated RBC 0.00 Nucleated RBC % 0.0 Sodium 139 Potassium 4.4 Chloride 95 L Carbon Dioxide 24 Anion Gap 20.0 H BUN 7 Creatinine 0.7 Estimated GFR (MDRD) 83 L Glucose 276 H Lactic Acid Calcium 9.1 Total Bilirubin 0.5 AST 16 ALT < 10 L Alkaline Phosphatase 60 Total Protein 6.9 Albumin 3.2 Globulin 3.7 Albumin/Globulin Ratio 0.9 L Lipase 25 Procalcitonin TSH 2.31 Urine Color Urine Clarity Urine pH Ur Specific [place] Urine Protein Urine Glucose (UA) Urine Ketones Urine Occult Blood Urine Nitrite Urine Bilirubin Urine Urobilinogen Ur Leukocyte Esterase Urine RBC Urine WBC Ur Squamous Epith Cells Urine Bacteria Ur Microscopic Review Urine Culture Comments Nasal Adenovirus (PCR) Nasal B. parapertussis DNA (PCR) Nasal Coronavir 229E PCR Nasal Coronavir HKU1 PCR Nasal Coronavir NL63 PCR Nasal Coronavir OC43 PCR Nasal Enterovir/Rhinovir PCR Nasal Influenza B PCR Nasal Influenza A PCR Nasal Parainfluen 1 PCR Nasal Parainfluen 2 PCR Nasal Parainfluen 3 PCR Nasal Parainfluen 4 PCR Nasal RSV (PCR) Nasal B.pertussis DNA PCR Nasal C.pneumoniae (PCR) Andrews Human Metapneumo PCR Nasal M.pneumoniae (PCR) Nasal SARS-CoV-2 (PCR) Salicylates < 6.0 Urine Opiates Screen Ur Oxycodone Screen Urine Methadone Screen Ur Propoxyphene Screen Acetaminophen < 10 L Ur Barbiturates Screen Ur Tricyclics Screen Ur Phencyclidine Scrn Ur Amphetamine Screen U Methamphetamines Scrn U Benzodiazepines Scrn Urine Cocaine Screen U Cannabinoids Screen Ethyl Alcohol < 5.0 01/14/22 01/14/22 01/14/22 11:35 11:45 14:20 WBC RBC Hgb Hct MCV MCH MCHC RDW Plt Count MPV Neut # (Auto) Lymph # (Auto) Dolores # (Auto) Eos # (Auto) Baso # (Auto) Absolute Nucleated RBC Nucleated RBC % Sodium Potassium Chloride Carbon Dioxide Anion Gap BUN Creatinine Estimated GFR (MDRD) Glucose Lactic Acid Calcium Total Bilirubin AST ALT Alkaline Phosphatase Total Protein Albumin Globulin Albumin/Globulin Ratio Lipase Procalcitonin < 0.05 TSH Urine Color YELLOW Urine Clarity HAZY Urine pH 6.0 Ur Specific [place] 1.015 Urine Protein NEGATIVE Urine Glucose (UA) 500 H Urine Ketones 15 H Urine Occult Blood SMALL H Urine Nitrite NEGATIVE Urine Bilirubin NEGATIVE Urine Urobilinogen 0.2 (NORMAL) Ur Leukocyte Esterase TRACE H Urine RBC 6-10 H Urine WBC 6-10 H Ur Squamous Epith Cells MOD Squamous H Urine Bacteria Moderate H Ur Microscopic Review INDICATED Urine Culture Comments NOT INDICATED Nasal Adenovirus (PCR) NOT DETECTED Nasal B. parapertussis DNA (PCR) NOT DETECTED Nasal Coronavir 229E PCR NOT DETECTED Nasal Coronavir HKU1 PCR NOT DETECTED Nasal Coronavir NL63 PCR NOT DETECTED Nasal Coronavir OC43 PCR NOT DETECTED Nasal Enterovir/Rhinovir PCR NOT DETECTED Nasal Influenza B PCR NOT DETECTED Nasal Influenza A PCR NOT DETECTED Nasal Parainfluen 1 PCR NOT DETECTED Nasal Parainfluen 2 PCR NOT DETECTED Nasal Parainfluen 3 PCR NOT DETECTED Nasal Parainfluen 4 PCR NOT DETECTED Nasal RSV (PCR) NOT DETECTED Nasal B.pertussis DNA PCR NOT DETECTED Nasal C.pneumoniae (PCR) NOT DETECTED Andrews Human Metapneumo PCR NOT DETECTED Nasal M.pneumoniae (PCR) NOT DETECTED Nasal SARS-CoV-2 (PCR) NOT DETECTED Salicylates Urine Opiates Screen NEGATIVE Ur Oxycodone Screen NEGATIVE Urine Methadone Screen NEGATIVE Ur Propoxyphene Screen NEGATIVE Acetaminophen Ur Barbiturates Screen NEGATIVE Ur Tricyclics Screen NEGATIVE Ur Phencyclidine Scrn NEGATIVE Ur Amphetamine Screen NEGATIVE U Methamphetamines Scrn NEGATIVE U Benzodiazepines Scrn NEGATIVE Urine Cocaine Screen NEGATIVE U Cannabinoids Screen NEGATIVE Ethyl Alcohol 01/14/22 14:20 WBC RBC Hgb Hct MCV MCH MCHC RDW Plt Count MPV Neut # (Auto) Lymph # (Auto) Dolores # (Auto) Eos # (Auto) Baso # (Auto) Absolute Nucleated RBC Nucleated RBC % Sodium Potassium Chloride Carbon Dioxide Anion Gap BUN Creatinine Estimated GFR (MDRD) Glucose Lactic Acid 3.4 H* Calcium Total Bilirubin AST ALT Alkaline Phosphatase Total Protein Albumin Globulin Albumin/Globulin Ratio Lipase Procalcitonin TSH Urine Color Urine Clarity Urine pH Ur Specific [place] Urine Protein Urine Glucose (UA) Urine Ketones Urine Occult Blood Urine Nitrite Urine Bilirubin Urine Urobilinogen Ur Leukocyte Esterase Urine RBC Urine WBC Ur Squamous Epith Cells Urine Bacteria Ur Microscopic Review Urine Culture Comments Nasal Adenovirus (PCR) Nasal B. parapertussis DNA (PCR) Nasal Coronavir 229E PCR Nasal Coronavir HKU1 PCR Nasal Coronavir NL63 PCR Nasal Coronavir OC43 PCR Nasal Enterovir/Rhinovir PCR Nasal Influenza B PCR Nasal Influenza A PCR Nasal Parainfluen 1 PCR Nasal Parainfluen 2 PCR Nasal Parainfluen 3 PCR Nasal Parainfluen 4 PCR Nasal RSV (PCR) Nasal B.pertussis DNA PCR Nasal C.pneumoniae (PCR) Andrews Human Metapneumo PCR Nasal M.pneumoniae (PCR) Nasal SARS-CoV-2 (PCR) Salicylates Urine Opiates Screen Ur Oxycodone Screen Urine Methadone Screen Ur Propoxyphene Screen Acetaminophen Ur Barbiturates Screen Ur Tricyclics Screen Ur Phencyclidine Scrn Ur Amphetamine Screen U Methamphetamines Scrn U Benzodiazepines Scrn Urine Cocaine Screen U Cannabinoids Screen Ethyl Alcohol - Rads (name of study) head CT Radiology: Final report received, EMP read contemporaneously, See rad report PD MEDICAL DECISION MAKING - ED course Complexity details: reviewed results, re-evaluated patient, considered differential, d/w family, d/w organization development consultant ED course: 71-year-old female with a history of anoxic brain injury, likely has had seizures in the past, the family is unclear if this is the case or not. The patient The patient apparently did not tolerate Keppra well. She was given Dilantin IV here. I discussed the case with Dr. Degroot, on-call for the patient's neurologist, Dr. Alatorre at [facility]. We will start the patient on Dilantin 300 mg at night. She can be maintained on Dilantin 100 mg IV every 8 hours while in the hospital. Discussed the case with Dr. Nicole, hospitalist who accepts This document was made in part using voice recognition software. While efforts are made to proofread this document, sound alike and grammatical errors may occur. Departure - Departure Disposition: ED Place in Observation Clinical Impression: Seizure, Anoxic brain injury, Diabetes mellitus type 2, insulin dependent Urinary tract infection Qualifiers: Urinary tract infection type: acute cystitis Hematuria presence: without hematuria Qualified Code(s): N30.00 - Acute cystitis without hematuria Altered mental status Qualifiers: Altered mental status type: disorientation Qualified Code(s): R41.0 - Disorientation, unspecified Condition: Stable
[2022-01-14 11:49] LABS: MUDS CUTOFF CONCENTRATIONS CUTOFF CONC BELOW:
[2022-01-14 11:53] LABS: BILIRUBIN,URINE NEGATIVE (NEGATIVE); CLARITY,URINE HAZY (CLEAR); GLUCOSE, URINE (UA) 500 mg/dL (NEGATIVE); KETONES,URINE (UA) 15 mg/dL (NEGATIVE); LEUKOCYTE ESTERASE, URINE TRACE (NEGATIVE); NITRITE,URINE NEGATIVE (NEGATIVE); OCCULT BLOOD,URINE SMALL (NEGATIVE); PROTEIN,URINE NEGATIVE (NEGATIVE); UROBILINOGEN,URINE 0.2 (NORMAL) E.U./dL (NORMAL)
[2022-01-14 11:58] LABS: BACTERIA,URINE Moderate /HPF (None Seen); SQUAMOUS EPITHELIAL CELL,UR MOD Squamous (<= Few)
[2022-01-14 12:11] LABS: AMPHETAMINE SCREEN,URINE NEGATIVE (NEGATIVE); BARBITURATE SCREEN,UR NEGATIVE (NEGATIVE); BENZODIAZEPINES SCREEN, URINE NEGATIVE (NEGATIVE); COCAINE SCREEN URINE NEGATIVE (NEGATIVE); METHADONE SCREEN, URINE NEGATIVE (NEGATIVE); METHAMPHETAMINES SCREEN, URINE NEGATIVE (NEGATIVE); OPIATE SCREEN, URINE NEGATIVE (NEGATIVE); OXYCODONE SCREEN, URINE NEGATIVE (NEGATIVE); PROPOXYPHENE SCREEN, URINE NEGATIVE (NEGATIVE); THC CANNABINOID SCREEN, URINE NEGATIVE (NEGATIVE); TRICYCLIC ANTIDEPRESSANT,URINE NEGATIVE (NEGATIVE)
--- NOTE | 2022-01-14 12:30 | CT Report ---
PROCEDURE: HEAD WO INDICATIONS: altered, seizure, h/o anoxic brain injury TECHNIQUE: Noncontrast 4.5 mm thick angled axial sections acquired from the foramen magnum to the vertex. For r adiation dose reduction, the following was used: automated exposure control, adjustment of mA and/or kV according to patient size. COMPARISON: 04/20/2018 FINDINGS: Image quality: Excellent. CSF spaces: There is enlargement of the ventricles and extra-axial CSF spaces this is likely due to c erebral volume loss next vacuo dilatation. No focal fluid collection. Brain: Diffuse deep and superficial white matter hypoattenuation. 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 Additional region of the sims-white matter loss within the posterior aspect of the l eft parietal lobe is also unchanged. Subtle region of increased density along the lateral aspect of t he right frontal lobe measuring approximately 8 mm in greatest diameter. No midline shift. No intrac ranial masses. Intracranial vascular calcifications within the proximal carotid arteries. Skull and face: Calvarium and visualized facial bones are intact, without suspicious lesions. Sinuses: Visualized sinuses and mastoids are clear. IMPRESSION: Findings consistent with diffuse microvascular ischemic changes and cerebral volume loss with additio nal findings of remote infarction of the right parieto-occipital region and the posterior aspect of t he left frontal lobe. No evidence of an acute transcortical infarction or mass effect. 8 mm region of increased echogenicity of the right frontal lobe may be artifactual in nature versus s mall region of hemorrhage. Consider [address] to assure stability. Reviewed by: Castillo Aguayo DO on 01/14/2022 11:29 AM MURPHY Approved by: Castillo Aguayo DO on 01/14/2022 11:29 AM MURPHY Station ID: [id number]
[2022-01-14 12:34] LABS: B. PARAPERTUSSIS- RESP PCR PAN NOT DETECTED; B. PERTUSSIS- RESP PCR PANEL NOT DETECTED; C. PNEUMONIAE- RESP PCR PANEL NOT DETECTED; CORONAVIRUS 229E-RESP PCR NOT DETECTED; CORONAVIRUS HKU1-RESP PCR NOT DETECTED; CORONAVIRUS NL63-RESP PCR NOT DETECTED; CORONAVIRUS OC43-RESP PCR NOT DETECTED; HUMAN METAPNEUMOVIRUS NOT DETECTED; INFLUENZA A- RESP PCR PANEL NOT DETECTED; INFLUENZA B - RESP PCR PANEL NOT DETECTED; M. PNEUMONIAE- RESP PCR PANEL NOT DETECTED; PARAINFLUENZA VIRUS 1 NOT DETECTED; PARAINFLUENZA VIRUS 2 NOT DETECTED; PARAINFLUENZA VIRUS 3 NOT DETECTED; PARAINFLUENZA VIRUS 4 NOT DETECTED; RHINOVIRUS/ENTEROVIRUS NOT DETECTED; RSV- RESP PCR PANEL NOT DETECTED; SARS-CoV-2 -RESP PCR PANEL NOT DETECTED
[2022-01-14] MEDS ORDERED: cefTRIAXone 1 GM VIAL IVP STA (13:55)
[2022-01-14] MEDS ORDERED: PROCHLORPERAZINE 10 MG/2 ML VIAL IVP PRN (14:17)
[2022-01-14] MEDS ORDERED: SODIUM CHLORIDE FLUSH 0.9% 10 ML SYRINGE IVP PRN (14:17)
[2022-01-14] MEDS ORDERED: ACETAMINOPHEN 325 MG TABLET PO PRN (14:17)
--- NOTE | 2022-01-14 14:33 | HISTORY & PHYSICAL EXAMINATION ---
Chief Complaint - Chief Complaint Chief Complaint: Seizures, mental status changes Stroke/TIA/Neuro Template - Admitted From Admitted from: ED - History Obtained From Records Reviewed: RN notes reviewed, Old records reviewed History obtained from: Family (I did interview patient's daughter at bedside.) Exam limitations: Clinical condition (Due to patient's change in mental status and encephalopathy history obtained through records and ED physician) - History of Present Illness Severity at the worst: reports: Moderate Context- Symptoms started w/: reports: Other (Patient is somnolent) Timing: reports: Abrupt onset, Intermittent Associated symptoms: reports: General Weakness HPI Comment/Other: This is a 71-year-old quadriplegic female with history of 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 Alatorre at [facility] who presented to the emergency department with witnessed seizure-like events approximately 3-4 at home and 1 observed by EMS crew. Patient had been on Keppra at home and this was stopped a few weeks ago because it was making patient extremely somnolent and fatigued. Patient was transitioned over to gabapentin teen however had subsequent seizures all lasting between 1 and 2 minutes with recovery in between seizure like activity with postictal events. Patient was given Versed by EMS and subsequently her respiratory drive decreased and had respiratory depression for which she was placed on supplemental oxygen. She did not have any overt hypoxemia observed in the emergency department. In the Emergency department patient was given a Dilantin load, telemetry neurology from [facility] was consulted and advised on Dilantin 100 mg IV 3 times daily or if patient is able to tolerate orals to switch to p.o. Dilantin to be administered. Patient received a CTh which there was questionable right frontal lobe 8 mm echogenicity that would represent artifact versus a small hemorrhagic foci. Patient met sepsis physiology with her tachypnea up to 22, tachycardia above 90, did not have leukocytosis however WBC 11.5, altered mental status and somnolence with a lactic acid of 3.4 although I suspect that this was related to her postictal state. UTI deemed to be source of infection. BCXs x2 drawn. Patient was given Rocephin in the emergency department. Patient's daughter was interviewed upon my assessment and patient appeared to be back to her baseline with cognitive deficits present from anoxic brain injury and quadriplegia with bilateral upper extremity baseline contractures as well as decreased motor to bilateral lower extremities with significant atrophy to the upper extremities as well as to lower extremities. Hospitalist service was requested for further evaluation management treatment. PMH/PSH - Past Medical History Cardiovascular: positive: Hypertension, TX, Murmur Respiratory: positive: None Neuro: positive: None Endocrine/Autoimmune: positive: Type 2 diabetes GI: positive: Ulcers, Other REPORTER: positive: None : positive: Incontinence, Nocturia, Frequency HEENT: positive: None Psych: positive: Depression, Other Musculoskeletal: positive: Quadriplegia Derm: positive: None MRSA Hx?: No - Past Surgical History General: positive: Hiatal hernia repair, Other Cardiovascular: positive: Coronary stent, Cardiac catheterization, Angioplasty HEENT: positive: Tonsil/Adenoidectomy Social & Family Hx - Social History Does the pt smoke?: No Smoking Status: Never smoker Does the pt drink ETOH?: No Does the pt have substance abuse?: No - POLST Patient has POLST: No POLST Status: Full Code Meds/Allgy - Home Medications Home Medications: Ambulatory Orders Medication Instructions Recorded Confirmed Baclofen 20 mg PO QID 05/14/17 04/20/18 Dicyclomine HCl 10 mg PO QID 05/14/17 04/20/18 Gabapentin 100 mg PO QID 05/14/17 04/20/18 Insulin Regular, Human [Humulin R 45 units SUBQ 0800 05/14/17 04/20/18 U-500 Kwikpen] Quetiapine Fumarate 50 mg PO QPM 05/14/17 04/20/18 Spironolactone 25 mg PO MOWEFR@0900 05/14/17 04/20/18 Insulin Regular, Human [Humulin R] 10 units SUBQ QPM 04/20/18 04/20/18 Insulin Regular, Human [Humulin R] 15 units SUBQ 1200 04/20/18 04/20/18 Metformin HCl 1,000 mg PO BIDWM 04/20/18 04/20/18 Metoprolol Succinate 12.5 mg PO DAILY 04/20/18 04/20/18 Simvastatin 40 mg PO QPM 04/20/18 04/20/18 lisinopriL [Lisinopril] 2.5 mg PO DAILY 04/20/18 04/20/18 Saccharomyces Boulardii [Florastor] 250 mg PO BID #14 capsule 04/24/18 cefUROXime axetiL [Ceftin] 500 mg PO Q12H #14 tablet 04/24/18 - Allergies Allergies/Adverse Reactions: Allergies Allergy/AdvReac Type Severity Reaction Status Date / Time amitriptyline Allergy Severe Unknown Verified 01/03/22 13:51 propoxyphene [From Darvon] Allergy Unknown Unknown Verified 01/03/22 13:51 Review of Systems - Constitutional Constitutional: reports: Fatigue, Weakness - Ears, Nose & Throat Ears, Nose & Throat: denies: Vertigo, Sore throat - Cardiovascular Cariovascular: denies: Irregular heart rate, Palpitations, Syncope, Orthopnea - Respiratory Respiratory: denies: Cough, Sputum production, Wheezing, Hemoptysis, Orthopnea - Gastrointestinal Gastrointestinal: denies: Abdominal pain, Abdominal distention, Diarrhea, Vomiting, Reflux/heartburn - Genitourinary Genitourinary: denies: Dysuria, Frequency, Urgency - Musculoskeletal Musculoskeletal: denies: Back pain, Muscle weakness, Joint swelling - Integumentary Integumentary: denies: Rash, Lesions - Neurological Neurological: reports: General weakness, Focal weakness, Seizures. denies: Headache, Dizziness - Psychiatric Psychiatric: denies: Depression, Anxiety, Hallucinations - Endocrine Endocrine: reports: Polyuria, Polydypsia. denies: Polyphagia, Intolerance to heat - Hematologic/Lymphatic Hematologic/Lymphatic: denies: Anemia, Bruising, Petechiae, Blood clots - All Other Systems All Other Systems: reports: Reviewed and negative Prior Level of Functionality: patient is quadraplegic. Exam - Vital Signs Vital Signs: Vital Signs x48h Temp Pulse Resp BP Pulse Ox 01/14/22 13:43 91 20 100 01/14/22 13:30 94 20 118/71 100 01/14/22 13:15 94 20 118/71 100 01/14/22 12:30 80 20 126/87 H 98 01/14/22 12:16 96 22 130/86 H 95 01/14/22 11:47 98 24 142/87 H 98 01/14/22 11:32 111 H 20 162/84 H 100 01/14/22 11:17 98 20 132/74 H 95 01/14/22 10:45 36.4 C L 110 H 20 143/82 H 100 - Physical Exam General Appearance: positive: No acute distress, Lethargic Eyes Bilateral: positive: Normal inspection, PERRL, EOMI ENT: positive: Pharynx nml, No signs of dehydration Neck: positive: Nml inspection, Thyroid nml, No JVD, Trachea midline. negative: Thyromegaly Respiratory: positive: Chest non-tender, No respiratory distress, Breath sounds nml Cardiovascular: positive: Regular rate & rhythm, No murmur, No gallop Peripheral Pulses: positive: 2+ Abdomen: positive: Non-tender, No organomegaly, Nml bowel sounds Back: positive: Nml inspection Skin: positive: Color nml, No rash, Warm Extremities: positive: Non-tender, Full ROM, Nml appearance Neurologic/Psychiatric: positive: Weakness, Other Results - Lab Results Fish Bones: 01/14/22 11:07 01/14/22 11:07 Other Lab Results: Lab Results x24hrs 01/14/22 01/14/22 01/14/22 Range/Units 11:45 11:35 11:07 WBC (4.8-10.8) x10^3/uL RBC (4.20-5.40) 10^6/uL Hgb (12.0-16.0) g/dL Hct (37.0-47.0) % MCV (81.0-99.0) fL MCH (27.0-31.0) pg MCHC (32.0-36.0) g/dL RDW (12.0-15.0) % Plt Count (130-450) 10^3/uL MPV (7.9-10.8) fL Neut # (Auto) (1.5-6.6) 10^3/uL Lymph # (Auto) (1.5-3.5) 10^3/uL Kinney # (Auto) (0.0-1.0) 10^3/uL Eos # (Auto) (0.0-0.7) 10^3/uL Baso # (Auto) (0.0-0.1) 10^3/uL Absolute Nucleated RBC x10^3/uL Nucleated RBC % /100WBC Sodium (135-145) mmol/L Potassium (3.5-5.0) mmol/L Chloride (101-111) mmol/L Carbon Dioxide (21-32) mmol/L Anion Gap (6-13) BUN (6-20) mg/dL Creatinine (0.4-1.0) mg/dL Estimated GFR (MDRD) (>89) Glucose (70-100) mg/dL Calcium (8.5-10.3) mg/dL Total Bilirubin (0.2-1.0) mg/dL AST (10-42) IU/L ALT (10-60) IU/L Alkaline Phosphatase (42-121) IU/L Total Protein (6.7-8.2) g/dL Albumin (3.2-5.5) g/dL Globulin (2.1-4.2) g/dL Albumin/Globulin Ratio (1.0-2.2) Lipase (22-51) U/L TSH 2.31 (0.34-5.60) uIU/mL Urine Color YELLOW Urine Clarity HAZY (CLEAR) Urine pH 6.0 (5.0-7.5) PH Ur Specific [place] 1.015 (1.002-1.030) Urine Protein NEGATIVE (NEGATIVE) mg/dL Urine Glucose (UA) 500 H (NEGATIVE) mg/dL Urine Ketones 15 H (NEGATIVE) mg/dL Urine Occult Blood SMALL H (NEGATIVE) Urine Nitrite NEGATIVE (NEGATIVE) Urine Bilirubin NEGATIVE (NEGATIVE) Urine Urobilinogen 0.2 (NORMAL) (NORMAL) E.U./dL Ur Leukocyte Esterase TRACE H (NEGATIVE) Urine RBC 6-10 H (0-5) /HPF Urine WBC 6-10 H (0-5) /HPF Ur Squamous Epith Cells MOD Squamous H (<= Few) Urine Bacteria Moderate H (None Seen) /HPF Ur Microscopic Review INDICATED Urine Culture Comments NOT INDICATED Nasal Adenovirus (PCR) NOT DETECTED Nasal B. parapertussis DNA (PCR) NOT DETECTED Nasal Coronavir 229E PCR NOT DETECTED Nasal Coronavir HKU1 PCR NOT DETECTED Nasal Coronavir NL63 PCR NOT DETECTED Nasal Coronavir OC43 PCR NOT DETECTED Nasal Enterovir/Rhinovir PCR NOT DETECTED Nasal Influenza B PCR NOT DETECTED Nasal Influenza A PCR NOT DETECTED Nasal Parainfluen 1 PCR NOT DETECTED Nasal Parainfluen 2 PCR NOT DETECTED Nasal Parainfluen 3 PCR NOT DETECTED Nasal Parainfluen 4 PCR NOT DETECTED Nasal RSV (PCR) NOT DETECTED Nasal B.pertussis DNA PCR NOT DETECTED Nasal C.pneumoniae (PCR) NOT DETECTED Andrews Human Metapneumo PCR NOT DETECTED Nasal M.pneumoniae (PCR) NOT DETECTED Nasal SARS-CoV-2 (PCR) NOT DETECTED Salicylates mg/dL Urine Opiates Screen NEGATIVE (NEGATIVE) Ur Oxycodone Screen NEGATIVE (NEGATIVE) Urine Methadone Screen NEGATIVE (NEGATIVE) Ur Propoxyphene Screen NEGATIVE (NEGATIVE) Acetaminophen (10-30) ug/mL Ur Barbiturates Screen NEGATIVE (NEGATIVE) Ur Tricyclics Screen NEGATIVE (NEGATIVE) Ur Phencyclidine Scrn NEGATIVE (NEGATIVE) Ur Amphetamine Screen NEGATIVE (NEGATIVE) U Methamphetamines Scrn NEGATIVE (NEGATIVE) U Benzodiazepines Scrn NEGATIVE (NEGATIVE) Urine Cocaine Screen NEGATIVE (NEGATIVE) U Cannabinoids Screen NEGATIVE (NEGATIVE) Ethyl Alcohol mg/dL 01/14/22 01/14/22 Range/Units 11:07 11:07 WBC 11.5 H (4.8-10.8) x10^3/uL RBC 3.44 L (4.20-5.40) 10^6/uL Hgb 11.2 L (12.0-16.0) g/dL Hct 34.1 L (37.0-47.0) % MCV 99.1 H (81.0-99.0) fL MCH 32.6 H (27.0-31.0) pg MCHC 32.8 (32.0-36.0) g/dL RDW 12.9 (12.0-15.0) % Plt Count 434 (130-450) 10^3/uL MPV 9.3 (7.9-10.8) fL Neut # (Auto) 8.8 H (1.5-6.6) 10^3/uL Lymph # (Auto) 1.8 (1.5-3.5) 10^3/uL Kinney # (Auto) 0.4 (0.0-1.0) 10^3/uL Eos # (Auto) 0.3 (0.0-0.7) 10^3/uL Baso # (Auto) 0.1 (0.0-0.1) 10^3/uL Absolute Nucleated RBC 0.00 x10^3/uL Nucleated RBC % 0.0 /100WBC Sodium 139 (135-145) mmol/L Potassium 4.4 (3.5-5.0) mmol/L Chloride 95 L (101-111) mmol/L Carbon Dioxide 24 (21-32) mmol/L Anion Gap 20.0 H (6-13) BUN 7 (6-20) mg/dL Creatinine 0.7 (0.4-1.0) mg/dL Estimated GFR (MDRD) 83 L (>89) Glucose 276 H (70-100) mg/dL Calcium 9.1 (8.5-10.3) mg/dL Total Bilirubin 0.5 (0.2-1.0) mg/dL AST 16 (10-42) IU/L ALT < 10 L (10-60) IU/L Alkaline Phosphatase 60 (42-121) IU/L Total Protein 6.9 (6.7-8.2) g/dL Albumin 3.2 (3.2-5.5) g/dL Globulin 3.7 (2.1-4.2) g/dL Albumin/Globulin Ratio 0.9 L (1.0-2.2) Lipase 25 (22-51) U/L TSH (0.34-5.60) uIU/mL Urine Color Urine Clarity (CLEAR) Urine pH (5.0-7.5) PH Ur Specific [place] (1.002-1.030) Urine Protein (NEGATIVE) mg/dL Urine Glucose (UA) (NEGATIVE) mg/dL Urine Ketones (NEGATIVE) mg/dL Urine Occult Blood (NEGATIVE) Urine Nitrite (NEGATIVE) Urine Bilirubin (NEGATIVE) Urine Urobilinogen (NORMAL) E.U./dL Ur Leukocyte Esterase (NEGATIVE) Urine RBC (0-5) /HPF Urine WBC (0-5) /HPF Ur Squamous Epith Cells (<= Few) Urine Bacteria (None Seen) /HPF Ur Microscopic Review Urine Culture Comments Nasal Adenovirus (PCR) Nasal B. parapertussis DNA (PCR) Nasal Coronavir 229E PCR Nasal Coronavir HKU1 PCR Nasal Coronavir NL63 PCR Nasal Coronavir OC43 PCR Nasal Enterovir/Rhinovir PCR Nasal Influenza B PCR Nasal Influenza A PCR Nasal Parainfluen 1 PCR Nasal Parainfluen 2 PCR Nasal Parainfluen 3 PCR Nasal Parainfluen 4 PCR Nasal RSV (PCR) Nasal B.pertussis DNA PCR Nasal C.pneumoniae (PCR) Andrews Human Metapneumo PCR Nasal M.pneumoniae (PCR) Nasal SARS-CoV-2 (PCR) Salicylates < 6.0 mg/dL Urine Opiates Screen (NEGATIVE) Ur Oxycodone Screen (NEGATIVE) Urine Methadone Screen (NEGATIVE) Ur Propoxyphene Screen (NEGATIVE) Acetaminophen < 10 L (10-30) ug/mL Ur Barbiturates Screen (NEGATIVE) Ur Tricyclics Screen (NEGATIVE) Ur Phencyclidine Scrn (NEGATIVE) Ur Amphetamine Screen (NEGATIVE) U Methamphetamines Scrn (NEGATIVE) U Benzodiazepines Scrn (NEGATIVE) Urine Cocaine Screen (NEGATIVE) U Cannabinoids Screen (NEGATIVE) Ethyl Alcohol < 5.0 mg/dL Sepsis Event Note (H) - Evaluation Current Stage of Sepsis: Sepsis Possible source of Sepsis: positive: Genitourinary Confirmed Source and Organism (if known) of Sepsis: Urinary tract infection present on admission - Sepsis Criteria Sepsis Criteria: Recorded Heart Rate greater than 90 bpm, Recorded Respiratory Rate greater than 20 (2 SIRS criteria plus source of infection of UTI.), Metabolic: lactate > 2 mmol/L Impression/Plan - Problem List Problem List: Assessment/Plan: 1. Sepsis/Lactic acidosis -Patient met sepsis physiology and with a lactic acid of 3.4 on admission and source of infection to be underlying UTI. -Patient given IV Rocephin in the ED, blood cultures x2 to follow, procalcitonin to follow and serial lactic acid levels. 500 cc IV NS bolus ordered with MAP well above 80's. -Continue to follow clinically and defer off of 30 cc/kg sepsis bolus given hypertension and systolics above 160s, as well as confounding etiology of lactic acidosis given her postictal state from her seizure disorder and the use of metformin. -CXR shows no acute cardiopulmonary process. 2. Seizure disorder -Primary neurologist is Dr. Alatorre at [facility] and tele neurology was consulted with Dr. Calderon who suggested placing patient on Dilantin at 100 mg 3 times daily with conversion to oral Dilantin once tolerating oral intake. -Will obtain Dilantin level in a.m. -Patient lacks fever and postictal state has essentially resolved however lactic acidosis present given her postictal state most likely and patient being on metformin for her diabetes. -Unable to perform EEG at this facility. 3. Acute toxic-metabolic encephalopathy---Resolved -Multifactorial etiology given her UTI with sepsis physiology, postictal state from her seizure-like activity due to breakthrough seizures while on gabapentin as a result of not being able to tolerate Keppra in the past. -Patient's TSH and toxicology here was unremarkable. Urine drug screen to follow. Patient does not appear to be in DKA with normal bicarbonate despite elevated sugars on presentation. -Now that patient is back to her baseline status will resume home medications. 4. Abnormal CTh -There was an 8 mm right frontal lobe echogenicity that may represent artifact versus a small hemorrhagic foci. -Per neurology at [facility] will repeat CTh at 2100 to rule out hemorrhagic foci or other pathology. 5. Macrocytic anemia -Patient has a hemoglobin 11.2 on admission with an MCV of 99. No bleeding events, not on anticoagulants or aspirin. Continue to monitor. 6. History of CAD with prior TX status post stent/angioplasty -Patient has no chest pain or anginal equivalents on this admission and patient's EKG reveals a sinus tachycardia at 100 bpm with LVH criteria. -Patient to resume lisinopril, simvastatin, as well as atenolol 7. History of anoxic brain injury/Quadriplegia/contractures -We will resume patient's baclofen, holding Neurontin given she will be on Dilantin now, does take Seroquel at nighttime to resume. 8. Insulin requiring type II diabetes mellitus -Patient is on Humulin R and will have pharmacy perform reconciliation. Meanwhile she will be placed on insulin sliding scale with Accu-Cheks before meals and at bedtime given that her sugars are somewhat uncontrolled. -Hemoglobin A1c to follow. Diabetic education and counseling. Holding metformin given lactic acidosis. 9. Hypertension -Resuming atenolol 10. Hyperlipidemia -Resuming patient's statin 11. Morbid obesity -Complicates overall medical care DVT prophylaxis: Protonix. CODE STATUS: Full code. In speaking to daughter at bedside patient lives with and primary caregiver is her daughter who patient lives with an [employer]. They would like full resuscitative efforts and may benefit from an outpatient palliative care consultation. Total critical care time: 40 minutes Core Measures - Anticipated LOS I expect patient to be DC'd or transferred within 96 hours.: Yes - DVT/VTE - Prophylaxis VTE/DVT Device ordered at admit?: Yes - Stroke - Rehab Assessment Rehab services assessment to be ordered?: No
[2022-01-14] MEDS ORDERED: hydrALAZINE INJ 20 MG/ML VIAL IVP PRN (14:41)
[2022-01-14] MEDS ORDERED: METOPROLOL 5 MG/5 ML VIAL IVP PRN (14:41)
[2022-01-14] MEDS ORDERED: LACTATED RINGERS 1,000 ML IV SCH (15:00)
[2022-01-14] MEDS ORDERED: SODIUM CHLORIDE 0.9% 500 ML IV ONE (15:27)
--- NOTE | 2022-01-14 15:31 | XRAY Report ---
PROCEDURE: Chest 1 View X-Ray INDICATIONS: AMS/TAC TECHNIQUE: One view of the chest was acquired. COMPARISON: 01/14/2022 and 04/20/2018 FINDINGS: Surgical changes and devices: None. Lungs and pleura: Left lower lobe opacity with blunting of the costophrenic angle. No pneumothorax. Mediastinum: Mediastinal contours appear normal. Heart size is normal. Bones and chest wall: No suspicious bony lesions. Overlying soft tissues appear unremarkable. IMPRESSION: Left basilar opacity with questionable pleural effusion versus atelectasis at the left lung base. Giv en short time between comparison study this may represent pulmonary edema/ARDS versus less likely inf ectious process or pulmonary hemorrhage. Reviewed by: Castillo Aguayo DO on 01/14/2022 2:30 PM MURPHY Approved by: Castillo Aguayo DO on 01/14/2022 2:30 PM MURPHY Station ID: [id number]
[2022-01-14] MEDS: INSULIN REGULAR HUMAN 300 UNIT/3 ML VIAL SUBQ SCH ×3 (19:01→23:54)
[2022-01-14] MEDS: PANTOPRAZOLE 40 MG VIAL IVP SCH (19:02)
[2022-01-14] MEDS: DICYCLOMINE 10 MG CAPSULE PO SCH ×2 (19:05→20:21)
[2022-01-14] MEDS: SODIUM CHLORIDE 0.9% IV SCH ×2 (19:06→22:12)
[2022-01-14] MEDS: PHENYTOIN IV SCH ×2 (19:06→22:12)
[2022-01-14] MEDS: SODIUM CHLORIDE FLUSH 0.9% 10 ML SYRINGE IVP SCH ×2 (19:06→23:55)
[2022-01-14] MEDS: BACLOFEN 10 MG TABLET PO PRN (20:21)
[2022-01-14] MEDS: ATORVASTATIN 40 MG TABLET PO SCH (20:21)
[2022-01-14] MEDS ORDERED: QUEtiapine 25 MG TABLET PO SCH (21:00)
--- NOTE | 2022-01-14 21:40 | CT Report ---
PROCEDURE: HEAD WO INDICATIONS: CTh showing 8 mm RFL defect versus hemmorrhage TECHNIQUE: Noncontrast 4.5 mm thick angled axial sections acquired from the foramen magnum to the vertex. For r adiation dose reduction, the following was used: automated exposure control, adjustment of mA and/or kV according to patient size. COMPARISON: Head CT earlier same day. FINDINGS: Image quality: Excellent. CSF spaces: Basal cisterns are patent. No extra-axial fluid collections. Ventricles are normal in size and shape. Brain: No midline shift. No intracranial masses or hemorrhage. Boyle-white matter interface is norm al. Skull and face: Calvarium and visualized facial bones are intact, without suspicious lesions. Sinuses: Visualized sinuses and mastoids are clear. IMPRESSION: Prominent chronic degenerative change within the deep white matter of each hemisphere, o ld posterior right parietal stroke with encephalomalacia extending to the cortical margin. No hemorrh age is found, no change from prior study. The area of concern seen by CT earlier same day appears to represent an undulation of the inner cortex of the right calvarium. Reviewed by: Juan Carlos Young MD on 01/14/2022 9:38 PM PDT Approved by: Juan Carlos Young MD on 01/14/2022 9:38 PM PDT Station ID: [id number]
[2022-01-14 21:46] LABS: ESTIMATED AVERAGE GLUCOSE 148 mg/dL (70-100); HEMOGLOBIN A1c% 6.8 % (4.27-6.07)
[2022-01-14] MEDS ORDERED: LACTATED RINGERS 1,000 ML IV ONE (22:35)
[2022-01-14] MEDS: LACTATED RINGERS 1,000 ML IV SCH (23:54)
[2022-01-15] MEDS ORDERED: LACTATED RINGERS 1,000 ML IV ONE (00:19)
[2022-01-15 04:59] LABS: BASOPHILS # (AUTO) 0.1 10^3/uL (0.0-0.1); BASOPHILS % (AUTO) 0.3 %; HGB - HEMOGLOBIN 10.2 g/dL (12.0-16.0); MONOCYTES % (AUTO) 4.6 %; RED CELL DISTRIBUTION WIDTH 12.7 % (12.0-15.0)
[2022-01-15 05:02] LABS: ALBUMIN/GLOBULIN RATIO 0.8 (1.0-2.2); ALKALINE PHOSPHATASE 55 IU/L (42-121); ALT ALANINE AMINOTRANSFERASE < 10 IU/L (10-60); AST ASPARTATE AMINOTRANSFERASE 12 IU/L (10-42); BILIRUBIN,TOTAL 0.4 mg/dL (0.2-1.0); BUN - BLOOD UREA NITROGEN 5 mg/dL (6-20); CALCIUM 8.9 mg/dL (8.5-10.3); CARBON DIOXIDE - CO2 30 mmol/L (21-32); CHLORIDE 98 mmol/L (101-111); CREATININE 0.5 mg/dL (0.4-1.0); GFR - MDRD 122 (>89); GLUCOSE 126 mg/dL (70-100); POTASSIUM 3.6 mmol/L (3.5-5.0); SODIUM 139 mmol/L (135-145); TOTAL PROTEIN 6.7 g/dL (6.7-8.2)
[2022-01-15 05:03] LABS: EOSINOPHILS # (AUTO) 0.1 10^3/uL (0.0-0.7); EOSINOPHILS % (AUTO) 0.4 %; LYMPHOCYTES # (AUTO) 2.4 10^3/uL (1.5-3.5); LYMPHOCYTES % (AUTO) 12.8 %; MEAN CORPUSCULAR HEMOGLOBIN 32.1 pg (27.0-31.0); MEAN CORPUSCULAR HGB CONC 32.9 g/dL (32.0-36.0); MEAN CORPUSCULAR VOLUME 97.5 fL (81.0-99.0); MEAN PLATELET VOLUME 9.4 fL (7.9-10.8); MONOCYTES # (AUTO) 0.9 10^3/uL (0.0-1.0); NEUTROPHILS # (AUTO) 15.2 10^3/uL (1.5-6.6); NEUTROPHILS % (AUTO) 81.3 %; PLT - PLATELET COUNT 439 10^3/uL (130-450); RED BLOOD COUNT 3.18 10^6/uL (4.20-5.40); WHITE BLOOD COUNT 18.7 x10^3/uL (4.8-10.8)
[2022-01-15] MEDS: INSULIN REGULAR HUMAN 300 UNIT/3 ML VIAL SUBQ SCH (05:06)
[2022-01-15] MEDS: PHENYTOIN IV SCH ×2 (05:12→15:17)
[2022-01-15] MEDS: SODIUM CHLORIDE 0.9% IV SCH ×2 (05:12→15:17)
[2022-01-15 05:41] LABS: PHOSPHORUS 2.7 mg/dL (2.5-4.6)
[2022-01-15 05:53] LABS: MAGNESIUM 0.8 mg/dL (1.7-2.8)
[2022-01-15 05:59] LABS: CALCIUM, IONIZED 1.11 mmol/L (1.15-1.33); VBG PH 7.469 (7.31-7.41)
[2022-01-15] MEDS: PANTOPRAZOLE 40 MG VIAL IVP SCH (06:22)
[2022-01-15] MEDS: MAGNESIUM SULFATE 2 GRAM 2 GM/50 ML BAG IV SCH ×2 (06:22→08:13)
[2022-01-15] MEDS ORDERED: MIDODRINE 2.5 MG TABLET PO PRN (07:36)
[2022-01-15] MEDS: LACTOBACILLUS RHAMNOSUS GG CAPSULE PO SCH (08:00)
[2022-01-15] MEDS: SACCHAROMYCES BOULARDII 250 MG CAPSULE PO SCH ×2 (08:00→17:41)
[2022-01-15] MEDS: ENOXAPARIN 40 MG/0.4 ML SYRINGE SUBQ SCH (08:01)
[2022-01-15] MEDS: DICYCLOMINE 10 MG CAPSULE PO SCH ×4 (08:01→21:51)
[2022-01-15] MEDS: METOPROLOL SUCCINATE 25 MG TABLET PO SCH (08:14)
[2022-01-15] MEDS: lisinopriL 5 MG TABLET PO SCH (08:14)
[2022-01-15] MEDS: PANTOPRAZOLE 40 MG TABLET PO SCH (08:15)
[2022-01-15] MEDS: SODIUM CHLORIDE FLUSH 0.9% 10 ML SYRINGE IVP SCH ×2 (08:15→17:41)
[2022-01-15] MEDS ORDERED: METOPROLOL SUCCINATE 25 MG TABLET PO SCH (09:00)
[2022-01-15] MEDS ORDERED: cefTRIAXone 1 GM in SODIUM CHLORIDE 0.9% MINIBAG 100 ML IV SCH (09:00)
[2022-01-15] MEDS ORDERED: lisinopriL 5 MG TABLET PO SCH (09:00)
--- NOTE | 2022-01-15 10:25 | PHARMACY PROGRESS NOTE ---
- Best Possible Medication History Admit Date and Time: 01/14/22 1417 Processed by: Pharmacy Medication History completed: Yes Patient Interview: Pt unable to participate Secondary Source(s): Physician records, Pharmacy records, Insurance records As the person ultimately responsible for medication therapy, providers are able to order a medication from an existing home medication list in [facility] via the "Reconcile Routine" prior to Confirmation of that medication by network support manager. Such practice is discouraged except when the physician, in their clinical judgment, deems that a medical need exists for a medication without regard to previous use.
--- NOTE | 2022-01-15 10:26 | PROVIDER PROGRESS NOTE ---
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 Alatorre at [facility] who presented to the emergency department with witnessed seizure-like events approximately 3-4 at home and 1 observed by EMS crew. Patient had been on Keppra at home and this was stopped a few weeks ago because it was making patie nt extremely somnolent and fatigued. Patient was transitioned over to gabapentin teen however had subsequent seizures all lasting between 1 and 2 minutes with recovery in between seizure like activity with postictal events. Patient was given Versed by EMS and subsequently her respiratory drive decreased and had respiratory depression for which she was placed on supplemental oxygen. She did not have any overt hypoxemia observed in the emergency department. In the Emergency department patient was given a Dilantin load, telemetry neurology from [facility] was consulted and advised on Dilantin 100 mg IV 3 times daily or if patient is able to tolerate orals to switch to p.o. Dilantin to be administered. Patient received a CTh which there was questionable right frontal lobe 8 mm echogenicity that would represent artifact versus a small hemorrhagic foci. Patient met sepsis physiology with her tachypnea up to 22, tachycardia above 90, did not have leukocytosis however WBC 11.5, altered mental status and somnolence with a lactic acid of 3.4 although I suspect that this was related to her postictal state. UTI deemed to be source of infection. BCXs x2 drawn. Patient was given Rocephin in the emergency department. Patient's daughter was interviewed upon my assessment and patient appeared to be back to her baseline with cognitive deficits present from anoxic brain injury and quadriplegia with bilateral upper extremity baseline contractures as well as decreased motor to bilateral lower extremities with significant atrophy to the upper extremities as well as to lower extremities. Hospitalist service was requested for further evaluation management treatment. Today's examination with no evidence of recurrent seizures. She appears to be improved and her hydration and hypovolemia status with electrolyte deficiencies with a magnesium of 0.8 on electrolyte repletion protocol. Patient did meet sepsis physiology criteria on admission however this has multifactorial contri butions as she has postictal lactic acidosis and on metformin as well as her hypovolemia and acute dehydration on presentation. Her procalcitonin is only is less than 0.05, TSH was within normal limits WBC did uptrend to 8.7 downtrending and her H&H. CXR shows a questionable left basilar opacity although the first CXR was unremarkable. CTh on repeat showed old right posterior stroke with encephalomalacia but no hemorrhaging. Her MAP's were below 65 therefore receiving up to 2 to 3 L of LR sepsis bolus protocol and on IV Rocephin currently and will add Vanco given her lactic acidosis and loss of endothelial tone. History of quadriplegia motor predominant and does feel from the waist down. Her electrolytes, renal function are conserved with an A1c of 6.8%. UA was abnormal with pyuria however urine culture was not reflexed. Will obtain Dilantin level, urine culture, 2 sets of blood cultures to follow. Respiratory panel and urine drug screen were unremarkable. She requires 2 L nasal cannula however no documentation of desaturations. Max of 99.3. Patient is contracted to the upper extremities although she has cognitive deficits she gives simple replies of "yes and no" to questions at bedside. No fevers, nausea, emesis, chest pain, GI or symptoms, MP rash or joint tenderness. O/E: Afebrile, HR ranging 80-90s, blood pressure 129/68 (systolics as low as 50s up to 80s with diastolics as low as 30s up to 40s). RR 19-24, 97% O2 saturation on 2 L nasal cannula General: She is cooperative with simple answers to questions, frail and cachectic appearing, in no acute respiratory distress. HEENT: improved but Dry mucous membranes, NCAT, no oropharynx lesions Neck: No JVD, trachea midline, no bruits or lymphadenopathy CV/lungs: RRR. No murmurs. CTA BL Abdomen: Soft, scaphoid, positive bowel sounds, nontender, no HSM Extremities/skin: Upper extremity contractures at the MCP with good pulses, lower extremities with some movements and fasciculations, minimal contractures with no ulcerative lesions. Neuro: Baseline anoxia brain injury, cognitive deficits, contractures as per above, sensory preserved with motor deficits and baseline quadriplegia. Labs: Reviewed Imaging studies: Reviewed Assessment/plan: 1. Sepsis -Patient met sepsis physiology and with a lactic acid of 3.4 on admission and source of infection to be underlying UTI. -Patient given IV Rocephin in the ED, blood cultures x2 to follow, procalcitonin unremarkable and serial lactic acid levels uptrended to 3.9, now at 2.1>. Patient received up to 3 L of LR given her MAP is less than 65 and to maintain above 65. Added midodrine as needed for adjuvant -Patient has a multifactorial cause for her lactic acidosis as she was postictal along with metformin use at home as well as patient being hypovolemic and presenting with acute dehydration as evidenced by ketones in urine, endothelial tone loss, empiric treatment with IV Rocephin to continue and will add vancomycin to cover for MRSA -Urine culture and blood culture to follow, repeat procalcitonin in a.m. -Initial CXR shows no acute cardiopulmonary process however repeat CXR showed a left basilar opacity however she is afebrile, no coughing or hypoxemia although she is on 2 L with no documented desaturations. 2. Seizure disorder---Stable -Primary neurologist is Dr. Alatorre at [facility] and tele neurology was consulted with Dr. Calderon who suggested placing patient on Dilantin at 100 mg 3 times daily with conversion to oral Dilantin once tolerating oral intake. -Patient lacks fever and postictal state has essentially resolved however lactic acidosis present given her postictal state and other causes per above. -We will transition over to oral Dilantin at 300 mg p.o. nightly and will shut off Dilantin close to the time she will receive oral Dilantin to avoid breakthrough seizures. -Dilantin level to follow. -Unable to perform EEG at this facility. 3. Acute dehydration/Hypovolemia/Hypomagnesemia -Patient presented with ketones in urine and clinically appeared to be dehydrated with dry mucous membranes along with hypomagnesemia and correcting underlying deficiencies. She did receive LR given her sepsis physiology on presentation. We will continue to optimize fluid and nutritional balance and maintain euvolemia. -Patient's dehydration and hypovolemia status contributing to low BPs along with other components contributing to her sepsis physiology as per above. 4. Acute toxic-metabolic encephalopathy---Resolved -Multifactorial etiology given her UTI with sepsis physiology, postictal state from her seizure-like activity due to breakthrough seizures while on gabapentin as a result of not being able to tolerate Keppra in the past. -Patient's TSH and toxicology here was unremarkable. Urine drug screen to follow. Patient does not appear to be in DKA with normal bicarbonate despite elevated sugars on presentation. -Now that patient is back to her baseline status will resume home medications. 5. Abnormal CTh---Resolved -There was an 8 mm right frontal lobe echogenicity that may represent artifact versus a small hemorrhagic foci. -Per neurology at [facility] will repeat CTh at 2100 to rule out hemorrhagic foci or other pathology. -Patient's repeat CTA showed old right parietal stroke with encephalomalacia and no evidence of hemorrhage for which echogenicity previously thought to be artifact versus hemorrhage represented undulation of the inner cortex of the right calvarium 6. Macrocytic anemia -Patient had hemoglobin down trended as a result of hemodilution and no evidence of bleeding events. Admit hemoglobin 11.2>10.2. No bleeding events, not on anticoagulants or aspirin. Continue to monitor. 7. History of CAD with prior SC status post stent/angioplasty -Patient has no chest pain or anginal equivalents on this admission and patient's EKG reveals a sinus tachycardia at 100 bpm with LVH criteria. -Patient to resume lisinopril, simvastatin, as well as atenolol 8. History of anoxic brain injury/Quadriplegia/contractures -We will resume patient's baclofen, holding Neurontin given she will be on Dilantin now. Patient takes Seroquel at nighttime however given her hypotension in the context of her sepsis we will hold as this will precipitate orthostatic hypotension. 9. Insulin requiring type II diabetes mellitus----Controlled -Patient takes Humulin at home. Surprisingly her hemoglobin A1c is controlled at 6.8% and will transition to Accu-Cheks before meals and at bedtime with glycemic control with moderate ISS as she is tolerating her meals now. Holding metformin given lactic acidosis. 10. Hypertension -Continues on atenolol 11. Hyperlipidemia -Continues on statin 12. Morbid obesity -Complicates overall medical care DVT prophylaxis: Protonix. CODE STATUS: Full code. In speaking to daughter at bedside patient lives with and primary caregiver is her daughter who patient lives with an [place]. They would like full resuscitative efforts and may benefit from an outpatient palliative care consultation. Total critical care time: 40 minutes
[2022-01-15] MEDS: MAGNESIUM OXIDE 400 MG TABLET PO SCH ×2 (12:26→17:40)
[2022-01-15] MEDS: INSULIN ASPART 300 UNIT/3 ML PEN SUBQ SCH ×3 (12:26→21:50)
[2022-01-15] MEDS: LACTATED RINGERS 1,000 ML IV SCH ×2 (12:26→21:44)
[2022-01-15] MEDS: BACLOFEN 10 MG TABLET PO PRN (17:39)
[2022-01-15] MEDS: ATORVASTATIN 40 MG TABLET PO SCH (21:51)
[2022-01-15] MEDS: PHENYTOIN ER 100 MG CAPSULE PO SCH (21:51)
[2022-01-16] MEDS: SODIUM CHLORIDE FLUSH 0.9% 10 ML SYRINGE IVP SCH ×3 (00:34→17:34)
[2022-01-16 05:53] LABS: BASOPHILS # (AUTO) 0.1 10^3/uL (0.0-0.1); BASOPHILS % (AUTO) 0.4 %; EOSINOPHILS # (AUTO) 0.1 10^3/uL (0.0-0.7); EOSINOPHILS % (AUTO) 0.5 %; HCT - HEMATOCRIT 32.6 % (37.0-47.0); LYMPHOCYTES % (AUTO) 11.5 %; MEAN CORPUSCULAR HEMOGLOBIN 32.5 pg (27.0-31.0); MEAN CORPUSCULAR HGB CONC 33.7 g/dL (32.0-36.0); MEAN CORPUSCULAR VOLUME 96.4 fL (81.0-99.0); MEAN PLATELET VOLUME 9.2 fL (7.9-10.8); MONOCYTES # (AUTO) 0.7 10^3/uL (0.0-1.0); MONOCYTES % (AUTO) 4.1 %; NEUTROPHILS % (AUTO) 82.6 %; PLT - PLATELET COUNT 431 10^3/uL (130-450); RED BLOOD COUNT 3.38 10^6/uL (4.20-5.40); RED CELL DISTRIBUTION WIDTH 12.5 % (12.0-15.0)
[2022-01-16 06:15] LABS: ALBUMIN 3.3 g/dL (3.2-5.5); ALBUMIN/GLOBULIN RATIO 0.8 (1.0-2.2); ALKALINE PHOSPHATASE 68 IU/L (42-121); ALT ALANINE AMINOTRANSFERASE < 10 IU/L (10-60); AST ASPARTATE AMINOTRANSFERASE 12 IU/L (10-42); BILIRUBIN,TOTAL 0.4 mg/dL (0.2-1.0); BUN - BLOOD UREA NITROGEN < 5 mg/dL (6-20); CALCIUM 8.7 mg/dL (8.5-10.3); CARBON DIOXIDE - CO2 30 mmol/L (21-32); CHLORIDE 96 mmol/L (101-111); CREATININE 0.4 mg/dL (0.4-1.0); GFR - MDRD 158 (>89); GLUCOSE 270 mg/dL (70-100); MAGNESIUM 1.4 mg/dL (1.7-2.8); POTASSIUM 3.6 mmol/L (3.5-5.0); SODIUM 137 mmol/L (135-145); TOTAL PROTEIN 7.2 g/dL (6.7-8.2)
[2022-01-16] MEDS: LACTATED RINGERS 1,000 ML IV SCH (07:51)
[2022-01-16] MEDS: INSULIN ASPART 300 UNIT/3 ML PEN SUBQ SCH ×3 (07:51→17:20)
[2022-01-16] MEDS: MAGNESIUM OXIDE 400 MG TABLET PO SCH ×3 (07:53→17:24)
[2022-01-16] MEDS: SACCHAROMYCES BOULARDII 250 MG CAPSULE PO SCH ×2 (07:53→17:27)
[2022-01-16] MEDS: METOPROLOL SUCCINATE 25 MG TABLET PO SCH (08:57)
[2022-01-16] MEDS: PANTOPRAZOLE 40 MG TABLET PO SCH (08:57)
[2022-01-16] MEDS: LACTOBACILLUS RHAMNOSUS GG CAPSULE PO SCH (08:57)
[2022-01-16] MEDS: DICYCLOMINE 10 MG CAPSULE PO SCH ×4 (08:57→21:10)
[2022-01-16] MEDS: ENOXAPARIN 40 MG/0.4 ML SYRINGE SUBQ SCH (08:58)
[2022-01-16] MEDS: lisinopriL 5 MG TABLET PO SCH (08:58)
--- NOTE | 2022-01-16 10:45 | PROVIDER PROGRESS NOTE ---
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 Alatorre at [facility] who presented to the emergency department with witnessed seizure-like events approximately 3-4 at home and 1 observed by EMS crew. Patient had been on Keppra at home and this was stopped a few weeks ago because it was making patie nt extremely somnolent and fatigued. Patient was transitioned over to gabapentin teen however had subsequent seizures all lasting between 1 and 2 minutes with recovery in between seizure like activity with postictal events. Patient was given Versed by EMS and subsequently her respiratory drive decreased and had respiratory depression for which she was placed on supplemental oxygen. She did not have any overt hypoxemia observed in the emergency department. In the Emergency department patient was given a Dilantin load, telemetry neurology from [facility] was consulted and advised on Dilantin 100 mg IV 3 times daily or if patient is able to tolerate orals to switch to p.o. Dilantin to be administered. Patient received a CTh which there was questionable right frontal lobe 8 mm echogenicity that would represent artifact versus a small hemorrhagic foci. Patient met sepsis physiology with her tachypnea up to 22, tachycardia above 90, did not have leukocytosis however WBC 11.5, altered mental status and somnolence with a lactic acid of 3.4 although I suspect that this was related to her postictal state. UTI deemed to be source of infection. BCXs x2 drawn. Patient was given Rocephin in the emergency department. Patient's daughter was interviewed upon my assessment and patient appeared to be back to her baseline with cognitive deficits present from anoxic brain injury and quadriplegia with bilateral upper extremity baseline contractures as well as decreased motor to bilateral lower extremities with significant atrophy to the upper extremities as well as to lower extremities. Hospitalist service was requested for further evaluation management treatment. Patient seen today at bedside with improvement to her clinical status and systolic blood pressures in the 140s. She is on room air with no need for supplemental oxygen. Hyperglycemic and WBC has down trended to 17k. Her magnesium is low at 1.4 and her Dilantin level is 9.6 although she is on magnesium oxide at 600 mg p.o. 3 times daily for magnesium reserve. Blood culture was ordered on 01/14 however this was not performed. Her procalcitonin is unremarkable and her urine culture is less than 10k of urogenital shaila and unclear of patient's underlying sepsis if patient not having UTI signs or symptoms with an unremarkable urine culture. She otherwise has anoxic brain injury at baseline and denies fevers, nausea, emesis, chest pain, GI or symptoms, maculopapular rashes or joint tenderness. Intake and Output Totals x24h 01/14/22 01/15/22 01/16/22 23:59 23:59 23:59 Intake Total 2294 4962.000 980 Output Total 400 4250 1400 Balance 1894 712.000 -420 Laboratory Results - last 24 hr 01/15/22 01/15/22 01/15/22 10:01 19:25 19:25 WBC RBC Hgb Hct MCV MCH MCHC RDW Plt Count MPV Neut # (Auto) Lymph # (Auto) Hendricks # (Auto) Eos # (Auto) Baso # (Auto) Absolute Nucleated RBC Nucleated RBC % Sodium Potassium Chloride Carbon Dioxide Anion Gap BUN Creatinine Estimated GFR (MDRD) Glucose Lactic Acid 1.4 Calcium Magnesium 1.5 L Total Bilirubin AST ALT Alkaline Phosphatase Total Protein Albumin Globulin Albumin/Globulin Ratio Procalcitonin < 0.05 01/16/22 01/16/22 05:47 05:47 WBC 17.0 H RBC 3.38 L Hgb 11.0 L Hct 32.6 L MCV 96.4 MCH 32.5 H MCHC 33.7 RDW 12.5 Plt Count 431 MPV 9.2 Neut # (Auto) 14.0 H Lymph # (Auto) 2.0 Hendricks # (Auto) 0.7 Eos # (Auto) 0.1 Baso # (Auto) 0.1 Absolute Nucleated RBC 0.00 Nucleated RBC % 0.0 Sodium 137 Potassium 3.6 Chloride 96 L Carbon Dioxide 30 Anion Gap 11.0 BUN < 5 L Creatinine 0.4 Estimated GFR (MDRD) 158 Glucose 270 H Lactic Acid Calcium 8.7 Magnesium 1.4 L Total Bilirubin 0.4 AST 12 ALT < 10 L Alkaline Phosphatase 68 Total Protein 7.2 Albumin 3.3 Globulin 3.9 Albumin/Globulin Ratio 0.8 L Procalcitonin O/E: Afebrile,Baseline anoxic brain injury with no mental status changes, not hypoxemic and nontachypneic. General: She is cooperative with simple answers to questions, frail and cachectic appearing, in no acute respiratory distress. HEENT: improved but Dry mucous membranes, NCAT, no oropharynx lesions Neck: No JVD, trachea midline, no bruits or lymphadenopathy CV/lungs: RRR. No murmurs. CTA BL Abdomen: Soft, scaphoid, positive bowel sounds, nontender, no HSM Extremities/skin: Upper extremity contractures at the MCP with good pulses, lower extremities with some movements and fasciculations, minimal contractures with no ulcerative lesions. Neuro: Baseline anoxia brain injury, cognitive deficits, contractures as per above, sensory preserved with motor deficits and baseline quadriplegia. Labs: Reviewed Imaging studies: Reviewed Assessment/plan: 1. Sepsis/Lactic acidosis---resolved -Patient met sepsis physiology and with a lactic acid of 3.4 on admission. Multifactorial cause for her lactic acidosis. -Patient given IV Rocephin in the ED, blood cultures x2 to follow, procalcitonin unremarkable and serial lactic acid levels uptrended to 3.9, now at 2.1>1.4. Patient received up to 3 L of LR given her MAP is less than 65 and to maintain above 65. Added midodrine as needed for adjuvant tx Although will likely mild autonomic dysfunction given her quadriplegia status. -Patient has a multifactorial cause for her lactic acidosis as she was postictal along with metformin use at home as well as patient being hypovolemic and presenting with acute dehydration as evidenced by ketones in urine, endothelial tone loss, empiric treatment with IV Rocephin to continue and will add vancomycin to cover for MRSA -Although blood culture was ordered on 01/14 this was not performed, urine culture showing less than 10 K of urogenital shaila and unlikely UTI given that she does not have any dysuria, pelvic or flank painProcalcitonin x2 within normal limits. -Initial CXR shows no acute cardiopulmonary process however repeat CXR showed a left basilar opacity however she is afebrile, no coughing or hypoxemia. -Unclear of patient's etiology of her sepsis and do not believe this is UTI related. De-escalate to Omnicef. Consider discontinuing antibiotics. 2. Seizure disorder---Stable -Primary neurologist is Dr. Alatorre at [facility] and tele neurology was consulted with Dr. Calderon who suggested placing patient on Dilantin at 100 mg 3 times daily with conversion to oral Dilantin once tolerating oral intake. -Patient lacks fever and postictal state has essentially resolved however lactic acidosis present given her postictal state and other causes per above. -We will transition over to oral Dilantin at 300 mg p.o. nightly and will shut off Dilantin close to the time she will receive oral Dilantin to avoid breakthrough seizures. -Dilantin level to follow. -Unable to perform EEG at this facility. 3. Acute dehydration/Hypovolemia/Hypomagnesemia---improved -Patient presented with ketones in urine and clinically appeared to be dehydrated with dry mucous membranes along with hypomagnesemia and correcting underlying deficiencies. She did receive LR given her sepsis physiology on presentation. We will continue to optimize fluid and nutritional balance and maintain euvolemia. -Patient's dehydration and hypovolemia status contributing to low BPs along with other components contributing to her sepsis physiology as per above. 4. Acute toxic-metabolic encephalopathy---Resolved -Multifactorial etiology given her UTI with sepsis physiology, postictal state from her seizure-like activity due to breakthrough seizures while on gabapentin as a result of not being able to tolerate Keppra in the past. -Patient's TSH and toxicology here was unremarkable. Urine drug screen to follow. Patient does not appear to be in DKA with normal bicarbonate despite elevated sugars on presentation. -Now that patient is back to her baseline status will resume home medications. 5. Abnormal CTh---Resolved -There was an 8 mm right frontal lobe echogenicity that may represent artifact versus a small hemorrhagic foci. -Per neurology at [facility] will repeat CTh at 2100 to rule out hemorrhagic foci or other pathology. -Patient's repeat CTA showed old right parietal stroke with encephalomalacia and no evidence of hemorrhage for which echogenicity previously thought to be artifact versus hemorrhage represented undulation of the inner cortex of the right calvarium 6. Macrocytic anemia -Patient had hemoglobin down trended as a result of hemodilution and no evidence of bleeding events. Admit hemoglobin 11.2>10.2. No bleeding events, not on a nticoagulants or aspirin. Continue to monitor. 7. History of CAD with prior NC status post stent/angioplasty -Patient has no chest pain or anginal equivalents on this admission and patient's EKG reveals a sinus tachycardia at 100 bpm with LVH criteria. -Patient to resume lisinopril, simvastatin, as well as atenolol 8. History of anoxic brain injury/Quadriplegia/contractures -We will resume patient's baclofen, holding Neurontin given she will be on Dilantin now. Patient takes Seroquel at nighttime however given her hypotension in the context of her sepsis we will hold as this will precipitate orthostatic hypotension. 9. Insulin requiring type II diabetes mellitus----Controlled -Patient takes Humulin at home. Surprisingly her hemoglobin A1c is controlled at 6.8% and will transition to Accu-Cheks before meals and at bedtime with glycemic control with moderate ISS as she is tolerating her meals now. Holding metformin given lactic acidosis. 10. Hypertension -Continues on atenolol 11. Hyperlipidemia -Continues on statin 12. Morbid obesity -Complicates overall medical care DVT prophylaxis: Protonix. CODE STATUS: Full code. In speaking to daughter at bedside patient lives with and primary caregiver is her daughter who patient lives with an [place]. They would like full resuscitative efforts and may benefit from an outpatient palliative care consultation.
[2022-01-16] MEDS ORDERED: atenoloL 25 MG TABLET PO SCH (11:00)
[2022-01-16] MEDS ORDERED: PROCHLORPERAZINE 10 MG/2 ML VIAL IVP ONE (11:01)
[2022-01-16] MEDS ORDERED: METOPROLOL SUCCINATE 25 MG TABLET PO SCH (11:07)
[2022-01-16] MEDS: cephALEXin 250 MG CAPSULE PO SCH ×2 (11:25→17:54)
[2022-01-16] MEDS: METOCLOPRAMIDE 10 MG TABLET PO SCH ×2 (16:18→21:11)
[2022-01-16] MEDS ORDERED: INSULIN ASPART 300 UNIT/3 ML PEN SUBQ SCH (21:00)
[2022-01-16] MEDS: ATORVASTATIN 40 MG TABLET PO SCH (21:11)
[2022-01-16] MEDS: PHENYTOIN ER 100 MG CAPSULE PO SCH (21:11)
[2022-01-16] MEDS ORDERED: INSULIN REGULAR HUMAN 300 UNIT/3 ML VIAL SUBQ SCH (22:00)
[2022-01-17] MEDS: SODIUM CHLORIDE FLUSH 0.9% 10 ML SYRINGE IVP SCH ×3 (01:49→17:39)
[2022-01-17] MEDS: cephALEXin 250 MG CAPSULE PO SCH ×2 (01:49→07:22)
[2022-01-17 06:11] LABS: BASOPHILS # (AUTO) 0.1 10^3/uL (0.0-0.1); BASOPHILS % (AUTO) 0.5 %; EOSINOPHILS # (AUTO) 0.1 10^3/uL (0.0-0.7); EOSINOPHILS % (AUTO) 0.8 %; HCT - HEMATOCRIT 34.4 % (37.0-47.0); HGB - HEMOGLOBIN 11.4 g/dL (12.0-16.0); LYMPHOCYTES # (AUTO) 2.2 10^3/uL (1.5-3.5); LYMPHOCYTES % (AUTO) 12.7 %; MEAN CORPUSCULAR HEMOGLOBIN 31.8 pg (27.0-31.0); MEAN CORPUSCULAR HGB CONC 33.1 g/dL (32.0-36.0); MEAN CORPUSCULAR VOLUME 96.1 fL (81.0-99.0); MEAN PLATELET VOLUME 10.3 fL (7.9-10.8); MONOCYTES % (AUTO) 5.6 %; NEUTROPHILS # (AUTO) 13.8 10^3/uL (1.5-6.6); NEUTROPHILS % (AUTO) 79.8 %; PLT - PLATELET COUNT 371 10^3/uL (130-450); RED BLOOD COUNT 3.58 10^6/uL (4.20-5.40); RED CELL DISTRIBUTION WIDTH 12.3 % (12.0-15.0); WHITE BLOOD COUNT 17.3 x10^3/uL (4.8-10.8)
[2022-01-17 06:24] LABS: ALBUMIN 3.4 g/dL (3.2-5.5); ALBUMIN/GLOBULIN RATIO 0.9 (1.0-2.2); ALKALINE PHOSPHATASE 72 IU/L (42-121); ALT ALANINE AMINOTRANSFERASE < 10 IU/L (10-60); AST ASPARTATE AMINOTRANSFERASE 11 IU/L (10-42); BILIRUBIN,TOTAL 0.3 mg/dL (0.2-1.0); BUN - BLOOD UREA NITROGEN < 5 mg/dL (6-20); CALCIUM 8.9 mg/dL (8.5-10.3); CARBON DIOXIDE - CO2 30 mmol/L (21-32); CHLORIDE 92 mmol/L (101-111); CREATININE 0.5 mg/dL (0.4-1.0); GFR - MDRD 122 (>89); GLUCOSE 264 mg/dL (70-100); MAGNESIUM 1.3 mg/dL (1.7-2.8); POTASSIUM 3.8 mmol/L (3.5-5.0); SODIUM 132 mmol/L (135-145); TOTAL PROTEIN 7.4 g/dL (6.7-8.2)
[2022-01-17] MEDS: METOCLOPRAMIDE 10 MG TABLET PO SCH ×4 (07:22→21:55)
[2022-01-17] MEDS: MAGNESIUM OXIDE 400 MG TABLET PO SCH ×3 (07:53→17:24)
[2022-01-17] MEDS: MULTIVITAMIN W/MINERALS TABLET PO SCH (07:54)
[2022-01-17] MEDS: SACCHAROMYCES BOULARDII 250 MG CAPSULE PO SCH ×2 (07:54→17:28)
[2022-01-17] MEDS: INSULIN ASPART 300 UNIT/3 ML PEN SUBQ SCH ×6 (07:56→21:51)
[2022-01-17] MEDS ORDERED: INSULIN REGULAR HUMAN 300 UNIT/3 ML VIAL SUBQ SCH ×4 (08:00→21:00)
[2022-01-17] MEDS: CHOLECALCIFEROL 25 MCG TABLET PO SCH (08:39)
[2022-01-17] MEDS: LACTOBACILLUS RHAMNOSUS GG CAPSULE PO SCH (08:40)
[2022-01-17] MEDS: PANTOPRAZOLE 40 MG TABLET PO SCH (08:40)
[2022-01-17] MEDS: lisinopriL 5 MG TABLET PO SCH (08:40)
[2022-01-17] MEDS: DICYCLOMINE 10 MG CAPSULE PO SCH ×4 (08:40→21:55)
[2022-01-17] MEDS: ENOXAPARIN 40 MG/0.4 ML SYRINGE SUBQ SCH (08:41)
[2022-01-17] MEDS: METOPROLOL SUCCINATE 25 MG TABLET PO SCH (08:47)
[2022-01-17] MEDS ORDERED: MAGNESIUM SULFATE 2 GRAM 2 GM/50 ML BAG IV ONE ×2 (08:54→15:00)
--- NOTE | 2022-01-17 09:00 | PROVIDER PROGRESS NOTE ---
Assessment/Plan - Problem List (1) Seizure Assessment/Plan: Primary neurologist is Dr. Alatorre at [facility] and tele neurology was consulted with Dr Wagoner suggested placing patient on Dilantin Dilantin 300 mg p.o. every afternoon. (2) Diabetes mellitus type 2, insulin dependent Assessment/Plan: Patient is on U5 100 insulin at home. Hemoglobin A1c was 6 Lantus 15 units twice daily and regular insulin 5 units before every meal at bedtime ordered. Accu-Cheks before every meal at bedtime and sliding scale insulin. (3) Altered mental status Qualifiers: Altered mental status type: disorientation Qualified Code(s): R41.0 - Disorientation, unspecified Assessment/Plan: Resolved. Likely secondary to seizure. (4) Leukocytosis Assessment/Plan: Patient's white blood cell count has been persistently high. It was 17.3 today. She is afebrile. Chest x-ray suggested mild/small bilateral infiltrates in the lung bases. She had initially been treated with vancomycin and Rocephin. This was discontinued and she was placed on Keflex. Today patient was placed on Zosyn and azithromycin. Keflex was discontinued. (5) Hx of coronary artery disease Assessment/Plan: On lisinopril, simvastatin and atenolol. (6) Hypertension Assessment/Plan: Currently normotensive. On atenolol and lisinopril. (7) Anoxic brain injury Assessment/Plan: Patient has history of anoxic brain injury. As a result she is quadriplegic with upper extremity contractures. On baclofen - Current Meds Current Meds: Current Medications Generic Name Dose Route Start Last Admin Trade Name Freq PRN Reason Stop Dose Admin Atorvastatin Calcium 40 mg 01/14/22 21:00 01/16/22 21:11 Atorvastatin 40 Mg Tablet PO 40 mg QPM JOSE Administration Baclofen 20 mg 01/14/22 16:52 01/15/22 17:39 Baclofen 10 Mg Tablet PO 20 mg QID PRN Administration Spasms Cephalexin 500 mg 01/16/22 12:00 01/17/22 07:22 Cephalexin 250 Mg Capsule PO 500 mg Q6HR JOSE Administration Cholecalciferol 50 mcg 01/17/22 09:00 01/17/22 08:39 Cholecalciferol 25 Mcg Tablet PO 50 mcg DAILY JOSE Administration Dicyclomine HCl 10 mg 01/14/22 17:00 01/17/22 08:40 Dicyclomine 10 Mg Capsule PO 10 mg QID JOSE Administration Enoxaparin Sodium 40 mg 01/15/22 09:00 01/17/22 08:41 Enoxaparin 40 Mg/0.4 Ml Syringe SUBQ 40 mg DAILY JOSE Administration Insulin Aspart 3 - 11 unit 01/17/22 08:00 01/17/22 07:56 Insulin Aspart 300 Unit/3 Ml Pen SUBQ 7 unit 0800,1200,1700,2100 [facility] Administration Protocol Insulin Human Regular 20 unit 01/17/22 08:00 01/17/22 07:56 Insulin Regular Human 300 Unit/3 Ml Vial SUBQ 20 unit 0800 JOSE Administration Insulin Human Regular 10 unit 01/16/22 22:00 01/16/22 22:04 Insulin Regular Human 300 Unit/3 Ml Vial SUBQ 10 unit QPM JOSE Administration Lactobacillus Rhamnosus 1 cap 01/15/22 09:00 01/17/22 08:40 Lactobacillus Rhamnosus Gg Capsule PO 1 cap DAILY JOSE Administration Lisinopril 2.5 mg 01/15/22 09:00 01/17/22 08:40 Lisinopril 5 Mg Tablet PO 2.5 mg DAILY JOSE Administration Magnesium Oxide 600 mg 01/15/22 12:00 01/17/22 07:53 Magnesium Oxide 400 Mg Tablet PO 600 mg TIDWM JOSE Administration Metoclopramide HCl 5 mg 01/16/22 16:00 01/17/22 07:22 Metoclopramide 10 Mg Tablet PO 5 mg ACHS JOSE Administration Metoprolol Succinate 25 mg 01/17/22 09:00 01/17/22 08:47 Metoprolol Succinate 25 Mg Tablet PO 25 mg DAILY JOSE Administration Multivitamins/Minerals 1 tab 01/17/22 08:00 01/17/22 07:54 Multivitamin W/Minerals Tablet PO 1 tab DAILYWM JOSE Administration Pantoprazole Sodium 40 mg 01/15/22 09:00 01/17/22 08:40 Pantoprazole 40 Mg Tablet PO 40 mg DAILY JOSE Administration Phenytoin Sodium 300 mg 01/15/22 21:00 01/16/22 21:11 Phenytoin Er 100 Mg Capsule PO 300 mg QPM JOSE Administration Prochlorperazine Edisylate 10 mg 01/14/22 14:17 01/14/22 20:21 Prochlorperazine 10 Mg/2 Ml Vial IVP 10 mg Q6HR PRN Administration Nausea / Vomiting Saccharomyces Boulardii 250 mg 01/15/22 08:00 01/17/22 07:54 Saccharomyces Boulardii 250 Mg Capsule PO 250 mg BIDWM JOSE Administration Sodium Chloride 10 ml 01/14/22 17:00 01/17/22 08:41 Sodium Chloride Flush 0.9% 10 Ml Syringe IVP 10 ml 0100,0900,1700 JOSE Administration - Lab Result Fish Bone Diagrams: 01/17/22 05:37 01/17/22 05:37 - Additional Planning My Orders: My Active Orders 01/17/22 08:54 MAGNESIUM SULFATE 2 GRAMS IV X1 Magnesium Sulfate 2 Gram [Magnesium Sulfate] 2 gm in 50 ml IV ONCE 01/17/22 15:00 MAGNESIUM SULFATE 2 GRAMS IV X1 Magnesium Sulfate 2 Gram [Magnesium Sulfate] 2 gm in 50 ml IV ONCE Subjective - Subjective Patient Reports: Other (She was resting comfortably in bed at time of exam. Her was visiting at bedside. She denied any complaints.) Objective Vital Signs: Vital Signs - 24 hr 01/16/22 01/16/22 01/16/22 10:16 13:57 15:53 Temperature 37.3 C 36.8 C 37.1 C Heart Rate [ 105 H 110 H 104 H Brachial] Respiratory 19 18 20 Rate Blood Pressure 149/89 H [Left Brachial artery] Blood Pressure 152/84 H 148/77 H [Right Brachial artery] O2 Saturation 96 94 99 01/16/22 01/17/22 01/17/22 20:13 00:48 06:00 Temperature 37.0 C 36.6 C 36.9 C Heart Rate [ 97 92 98 Brachial] Respiratory 20 20 19 Rate Blood Pressure [Left Brachial artery] Blood Pressure 141/70 H 146/67 H 156/84 H [Right Brachial artery] O2 Saturation 98 99 92 01/17/22 07:28 Temperature 36.6 C Heart Rate [ 93 Brachial] Respiratory 20 Rate Blood Pressure [Left Brachial artery] Blood Pressure 134/81 H [Right Brachial artery] O2 Saturation 93 Oxygen O2 Source Room air I&O (Last 24 Hrs): Intake and Output Totals x24h 01/15/22 01/16/22 01/17/22 23:59 23:59 23:59 Intake Total 4962.000 1760 300 Output Total 4250 2550 250 Balance 712.000 -790 50 General: Alert, Oriented x3, No acute distress, Other (Frail. Contracture in upper extremities bilaterally) HEENT: PERRLA, EOMI Neck: Supple, No JVD Neuro: Alert, Non Focal, Oriented Times 3 Cardiovascular: Regular rate, Normal S1, Normal S2 Respiratory: Chest non-tender, No respiratory distress, Other (Coarse breath sounds) Abdomen: Soft Extremities: No clubbing, No cyanosis, No edema Skin: No rashes, No breakdown, No significant lesion - Results Results: Laboratory Results WBC 17.3 x10^3/uL (4.8-10.8) H 01/17/22 05:37 RBC 3.58 10^6/uL (4.20-5.40) L 01/17/22 05:37 Hgb 11.4 g/dL (12.0-16.0) L 01/17/22 05:37 Hct 34.4 % (37.0-47.0) L 01/17/22 05:37 MCV 96.1 fL (81.0-99.0) 01/17/22 05:37 MCH 31.8 pg (27.0-31.0) H 01/17/22 05:37 MCHC 33.1 g/dL (32.0-36.0) 01/17/22 05:37 RDW 12.3 % (12.0-15.0) 01/17/22 05:37 Plt Count 371 10^3/uL (130-450) 01/17/22 05:37 MPV 10.3 fL (7.9-10.8) 01/17/22 05:37 Neut # (Auto) 13.8 10^3/uL (1.5-6.6) H 01/17/22 05:37 Lymph # (Auto) 2.2 10^3/uL (1.5-3.5) 01/17/22 05:37 Jewell # (Auto) 1.0 10^3/uL (0.0-1.0) 01/17/22 05:37 Eos # (Auto) 0.1 10^3/uL (0.0-0.7) 01/17/22 05:37 Baso # (Auto) 0.1 10^3/uL (0.0-0.1) 01/17/22 05:37 Absolute Nucleated RBC 0.00 x10^3/uL 01/17/22 05:37 Nucleated RBC % 0.0 /100WBC 01/17/22 05:37 VBG pH 7.469 (7.31-7.41) H 01/15/22 05:50 Ionized Calcium 1.11 mmol/L (1.15-1.33) L 01/15/22 05:50 Sodium 132 mmol/L (135-145) L 01/17/22 05:37 Potassium 3.8 mmol/L (3.5-5.0) 01/17/22 05:37 Chloride 92 mmol/L (101-111) L 01/17/22 05:37 Carbon Dioxide 30 mmol/L (21-32) 01/17/22 05:37 Anion Gap 10.0 (6-13) 01/17/22 05:37 BUN < 5 mg/dL (6-20) L 01/17/22 05:37 Creatinine 0.5 mg/dL (0.4-1.0) 01/17/22 05:37 Estimated GFR (MDRD) 122 (>89) 01/17/22 05:37 Glucose 264 mg/dL (70-100) H 01/17/22 05:37 POC Whole Bld Glucose 247 mg/dL (70 - 100) H 01/17/22 07:21 Estimat Average Glucose 148 mg/dL (70-100) H 01/14/22 11:03 Hemoglobin A1c % 6.8 % (4.27-6.07) H 01/14/22 11:03 Lactic Acid 1.4 mmol/L (0.5-2.2) 01/15/22 19:25 Calcium 8.9 mg/dL (8.5-10.3) 01/17/22 05:37 Phosphorus 2.7 mg/dL (2.5-4.6) 01/15/22 04:38 Magnesium 1.3 mg/dL (1.7-2.8) L 01/17/22 05:37 Total Bilirubin 0.3 mg/dL (0.2-1.0) 01/17/22 05:37 AST 11 IU/L (10-42) 01/17/22 05:37 ALT < 10 IU/L (10-60) L 01/17/22 05:37 Alkaline Phosphatase 72 IU/L (42-121) 01/17/22 05:37 Total Protein 7.4 g/dL (6.7-8.2) 01/17/22 05:37 Albumin 3.4 g/dL (3.2-5.5) 01/17/22 05:37 Globulin 4.0 g/dL (2.1-4.2) 01/17/22 05:37 Albumin/Globulin Ratio 0.9 (1.0-2.2) L 01/17/22 05:37 Lipase 25 U/L (22-51) 01/14/22 11:07 Procalcitonin < 0.05 ng/mL (<0.5) 01/15/22 10:01 TSH 2.31 uIU/mL (0.34-5.60) 01/14/22 11:07 Urine Color YELLOW 01/14/22 11:45 Urine Clarity HAZY (CLEAR) 01/14/22 11:45 Urine pH 6.0 PH (5.0-7.5) 01/14/22 11:45 Ur Specific [place] 1.015 (1.002-1.030) 01/14/22 11:45 Urine Protein NEGATIVE mg/dL (NEGATIVE) 01/14/22 11:45 Urine Glucose (UA) 500 mg/dL (NEGATIVE) H 01/14/22 11:45 Urine Ketones 15 mg/dL (NEGATIVE) H 01/14/22 11:45 Urine Occult Blood SMALL (NEGATIVE) H 01/14/22 11:45 Urine Nitrite NEGATIVE (NEGATIVE) 01/14/22 11:45 Urine Bilirubin NEGATIVE (NEGATIVE) 01/14/22 11:45 Urine Urobilinogen 0.2 (NORMAL) E.U./dL (NORMAL) 01/14/22 11:45 Ur Leukocyte Esterase TRACE (NEGATIVE) H 01/14/22 11:45 Urine RBC 6-10 /HPF (0-5) H 01/14/22 11:45 Urine WBC 6-10 /HPF (0-5) H 01/14/22 11:45 Ur Squamous Epith Cells MOD Squamous (<= Few) H 01/14/22 11:45 Urine Bacteria Moderate /HPF (None Seen) H 01/14/22 11:45 Ur Microscopic Review INDICATED 01/14/22 11:45 Urine Culture Comments NOT INDICATED 01/14/22 11:45 Nasal Adenovirus (PCR) NOT DETECTED 01/14/22 11:35 Nasal B. parapertussis DNA (PCR) NOT DETECTED 01/14/22 11:35 Nasal Coronavir 229E PCR NOT DETECTED 01/14/22 11:35 Nasal Coronavir HKU1 PCR NOT DETECTED 01/14/22 11:35 Nasal Coronavir NL63 PCR NOT DETECTED 01/14/22 11:35 Nasal Coronavir OC43 PCR NOT DETECTED 01/14/22 11:35 Nasal Enterovir/Rhinovir PCR NOT DETECTED 01/14/22 11:35 Nasal Influenza B PCR NOT DETECTED 01/14/22 11:35 Nasal Influenza A PCR NOT DETECTED 01/14/22 11:35 Nasal Parainfluen 1 PCR NOT DETECTED 01/14/22 11:35 Nasal Parainfluen 2 PCR NOT DETECTED 01/14/22 11:35 Nasal Parainfluen 3 PCR NOT DETECTED 01/14/22 11:35 Nasal Parainfluen 4 PCR NOT DETECTED 01/14/22 11:35 Nasal RSV (PCR) NOT DETECTED 01/14/22 11:35 Nasal Screen MRSA (PCR) NEGATIVE (NEGATIVE) 01/14/22 17:10 Nasal B.pertussis DNA PCR NOT DETECTED 01/14/22 11:35 Nasal C.pneumoniae (PCR) NOT DETECTED 01/14/22 11:35 Andrews Human Metapneumo PCR NOT DETECTED 01/14/22 11:35 Nasal M.pneumoniae (PCR) NOT DETECTED 01/14/22 11:35 Nasal SARS-CoV-2 (PCR) NOT DETECTED 01/14/22 11:35 Salicylates < 6.0 mg/dL 01/14/22 11:07 Urine Opiates Screen NEGATIVE (NEGATIVE) 01/14/22 11:45 Ur Oxycodone Screen NEGATIVE (NEGATIVE) 01/14/22 11:45 Urine Methadone Screen NEGATIVE (NEGATIVE) 01/14/22 11:45 Ur Propoxyphene Screen NEGATIVE (NEGATIVE) 01/14/22 11:45 Acetaminophen < 10 ug/mL (10-30) L 01/14/22 11:07 Ur Barbiturates Screen NEGATIVE (NEGATIVE) 01/14/22 11:45 Phenytoin 9.6 ug/mL 01/15/22 10:01 Ur Tricyclics Screen NEGATIVE (NEGATIVE) 01/14/22 11:45 Ur Phencyclidine Scrn NEGATIVE (NEGATIVE) 01/14/22 11:45 Ur Amphetamine Screen NEGATIVE (NEGATIVE) 01/14/22 11:45 U Methamphetamines Scrn NEGATIVE (NEGATIVE) 01/14/22 11:45 U Benzodiazepines Scrn NEGATIVE (NEGATIVE) 01/14/22 11:45 Urine Cocaine Screen NEGATIVE (NEGATIVE) 01/14/22 11:45 U Cannabinoids Screen NEGATIVE (NEGATIVE) 01/14/22 11:45 Ethyl Alcohol < 5.0 mg/dL 01/14/22 11:07 - Procedures Procedures: Procedures EXCISION OF TRANSVERSE COLON, ENDO, DIAGN (06/07/17) Sepsis Event Note (H) - Evaluation Current Stage of Sepsis: Sepsis Possible source of Sepsis: positive: Genitourinary - Sepsis Criteria Sepsis Criteria: Recorded Heart Rate greater than 90 bpm, Recorded Respiratory Rate greater than 20 (2 SIRS criteria plus source of infection of UTI.), Metabolic: lactate > 2 mmol/L ABX Reporting Has patient been on IV antibiotics over the past 48 hours?: Yes
--- NOTE | 2022-01-17 10:00 | XRAY Report ---
PROCEDURE: Chest 1 View X-Ray INDICATIONS: elevated wbc TECHNIQUE: One view of the chest was acquired. COMPARISON: 01/14/2022 FINDINGS: Surgical changes and devices: None. Lungs and pleura: No pleural effusions or pneumothorax. Subtle opacities are seen in bilateral lung bases more prominent on the left side. Mediastinum: Mildly tortuous thoracic aorta with aortic arch calcifications are seen. Heart size is n ormal. Bones and chest wall: No suspicious bony lesions. Overlying soft tissues appear unremarkable. IMPRESSION: Finding may represent small infiltrate/atelectasis at bilateral lung bases. No pleural effusion or pn eumothorax. Reviewed by: Real Melendez MD on 01/17/2022 9:58 AM PDT Approved by: Real Melendez MD on 01/17/2022 9:58 AM PDT Station ID: [id number]
[2022-01-17] MEDS: AZITHROMYCIN INJ 500 MG in SODIUM CHLORIDE 0.9% 250 ML IV SCH (10:33)
[2022-01-17] MEDS ORDERED: PIPERACILLIN/TAZOBACTAM 3.375 GM in SODIUM CHLORIDE 0.9% MINIBAG 100 ML IV ONE (11:30)
[2022-01-17] MEDS: PIPERACILLIN/TAZOBACTAM 3.375 GM in SODIUM CHLORIDE 0.9% MINIBAG 100 ML IV SCH ×2 (14:39→22:34)
[2022-01-17] MEDS: INSULIN GLARGINE 300 UNIT/3 ML PEN SUBQ SCH (21:52)
[2022-01-17] MEDS: ATORVASTATIN 40 MG TABLET PO SCH (21:56)
[2022-01-17] MEDS: PHENYTOIN ER 100 MG CAPSULE PO SCH (21:56)
[2022-01-18] MEDS: SODIUM CHLORIDE FLUSH 0.9% 10 ML SYRINGE IVP SCH ×2 (00:06→08:59)
[2022-01-18] MEDS: PANTOPRAZOLE 40 MG TABLET PO SCH (06:41)
[2022-01-18] MEDS: PIPERACILLIN/TAZOBACTAM 3.375 GM in SODIUM CHLORIDE 0.9% MINIBAG 100 ML IV SCH ×2 (06:42→14:25)
[2022-01-18] MEDS: METOCLOPRAMIDE 10 MG TABLET PO SCH ×2 (06:44→11:38)
[2022-01-18] MEDS: INSULIN ASPART 300 UNIT/3 ML PEN SUBQ SCH ×4 (08:56→11:42)
[2022-01-18] MEDS: INSULIN GLARGINE 300 UNIT/3 ML PEN SUBQ SCH (08:56)
[2022-01-18] MEDS: ENOXAPARIN 40 MG/0.4 ML SYRINGE SUBQ SCH (08:57)
[2022-01-18] MEDS: MAGNESIUM OXIDE 400 MG TABLET PO SCH ×2 (08:58→11:38)
[2022-01-18] MEDS: METOPROLOL SUCCINATE 25 MG TABLET PO SCH (08:58)
[2022-01-18] MEDS: SACCHAROMYCES BOULARDII 250 MG CAPSULE PO SCH (08:58)
[2022-01-18] MEDS: MULTIVITAMIN W/MINERALS TABLET PO SCH (08:59)
[2022-01-18] MEDS: lisinopriL 5 MG TABLET PO SCH (08:59)
[2022-01-18] MEDS: CHOLECALCIFEROL 25 MCG TABLET PO SCH (08:59)
[2022-01-18] MEDS: LACTOBACILLUS RHAMNOSUS GG CAPSULE PO SCH (08:59)
[2022-01-18] MEDS: DICYCLOMINE 10 MG CAPSULE PO SCH ×2 (09:07→14:24)
[2022-01-18 11:11] LABS: BASOPHILS # (AUTO) 0.1 10^3/uL (0.0-0.1); BASOPHILS % (AUTO) 0.6 %; EOSINOPHILS # (AUTO) 0.3 10^3/uL (0.0-0.7); HGB - HEMOGLOBIN 11.4 g/dL (12.0-16.0); LYMPHOCYTES # (AUTO) 2.4 10^3/uL (1.5-3.5); MEAN CORPUSCULAR HEMOGLOBIN 32.2 pg (27.0-31.0); MEAN CORPUSCULAR HGB CONC 33.5 g/dL (32.0-36.0); MEAN PLATELET VOLUME 9.9 fL (7.9-10.8); MONOCYTES # (AUTO) 0.9 10^3/uL (0.0-1.0); MONOCYTES % (AUTO) 6.7 %; NEUTROPHILS # (AUTO) 10.3 10^3/uL (1.5-6.6); NEUTROPHILS % (AUTO) 73.3 %; PLT - PLATELET COUNT 474 10^3/uL (130-450); RED BLOOD COUNT 3.54 10^6/uL (4.20-5.40); RED CELL DISTRIBUTION WIDTH 12.4 % (12.0-15.0)
[2022-01-18 11:17] LABS: CALCIUM 8.8 mg/dL (8.5-10.3); CREATININE 0.7 mg/dL (0.4-1.0); POTASSIUM 4.5 mmol/L (3.5-5.0)
[2022-01-18] MEDS: AZITHROMYCIN INJ 500 MG in SODIUM CHLORIDE 0.9% 250 ML IV SCH (11:18)
--- NOTE | 2022-01-18 14:52 | DISCHARGE SUMMARY ---
Discharge Summary Admit Date: 01/14/22 Discharge Date: 01/19/22 Discharging Provider: Antonia Francisco Primary Care Provider: Sveta Newman Condition at Discharge: Stable Discharge Disposition: 01 Home, Self Care - DIAGNOSES Admission Diagnoses: Sepsis/lactic acidosis Seizure disorder Acute toxic metabolic encephalopathy Abnormal CT head Macrocytic anemia History of coronary artery disease with prior IA status post stent/angioplasty History of anoxic brain injury/quadriplegia/contractures Insulin requiring type 2 diabetes mellitus Hypertension Hyperlipidemia Morbid obesity Discharge Diagnoses with Status of Each Condition: Sepsis/lactic acidosis: Lactic acidosis was likely due to seizure. Resolved Seizure disorder: Controlled on dilantin Acute toxic metabolic encephalopathy: Likely 2/[address] head. Patient will follow up with neurology Macrocytic anemia: Chronic History of coronary artery disease with prior IA status post stent/angioplasty History of anoxic brain injury/quadriplegia/contractures Insulin requiring type 2 diabetes mellitus: Chronic. Controlled Hypertension: Chronic controlled Hyperlipidemia: Chronic. Continue home medication - HPI History of Present Illness: This is a 71-year-old quadriplegic female with history of anoxic brain injury after fentanyl overdose many years ago, CAD/IA status post stent and angioplasty, HTN, HLP, morbid obesity, IDDM-2, depression, peptic ulcers, seizure disorders for which she is being managed by Dr. Alatorre at [facility] who presented to the emergency department with witnessed seizure-like events approximately 3-4 at home and 1 observed by EMS crew. Patient had been on Keppra at home and this was stopped a few weeks ago because it was making patient extremely somnolent and fatigued. Patient was transitioned over to gabapentin teen however had subsequent seizures all lasting between 1 and 2 minutes with recovery in between seizure like activity with postictal events. Patient was given Versed by EMS and subsequently her respiratory drive decreased and had respiratory depression for which she was placed on supplemental oxygen. She did not have any overt hypoxemia observed in the emergency department. In the Emergency department patient was given a Dilantin load, telemetry neurology from [facility] was consulted and advised on Dilantin 100 mg IV 3 times daily or if patient is able to tolerate orals to switch to p.o. Dilantin to be administered. Patient received a CTh which there was questionable right frontal lobe 8 mm echogenicity that would represent artifact versus a small hemorrhagic foci. Patient met sepsis physiology with her tachypnea up to 22, tachycardia above 90, did not have leukocytosis however WBC 11.5, altered mental status and somnolence with a lactic acid of 3.4 although I suspect that this was related to her postictal state. UTI deemed to be source of infection. BCXs x2 drawn. Patient was given Rocephin in the emergency department. Patient's daughter was interviewed upon my assessment and patient appeared to be back to her baseline with cognitive deficits present from anoxic brain injury and quadriplegia with bilateral upper extremity baseline con tractures as well as decreased motor to bilateral lower extremities with significant atrophy to the upper extremities as well as to lower extremities. Hospitalist service was requested for further evaluation management treatment. - HOSPITAL COURSE Hospital Course: 71-year-old quadriplegic female with history of anoxic brain injury who was admitted on 01/14/2022 after having seizures at home. At the time of presentation she was post ictal thus somewhat altered. She used to be on Keppra but this was discontinued few weeks ago due to extreme somnolence and fatigue. The patient's neurologist is Dr. Alatorre at the [facility]. After reaching out to [facility] neurology, the neurologist on-call recommended starting the patient on Dilantin 300 mg daily. This was initiated and the patient has been seizure free over the past 4 days of hospital stay. By the day of discharge patient's mental status is back to baseline. She is A&O x4. She had a persistent leukocytosis with white blood cell count between 17 and 18 for 3 days. She was initially treated with Rocephin then Keflex. This was discontinued and patient was placed on Zosyn and azithromycin. White blood cell count improved down to 14 by the day of discharge. She remained afebrile and vitals were stable. As a result she was discharged with a prescription of Augmentin 500 mg p.o. tw ice daily x5 more days. She was also prescribed azithromycin 500 mg to complete a Z-Onel regimen. Blood cultures were no growth to date by the time of discharge. Her hemoglobin A1c was 6.1 she was treated with Lantus and sliding scale insulin while in the hospital. Upon discharge she will resume her home insulin regiment of U500. She is being discharged in stable condition. She may follow-up with her neurologist as needed. She may also follow-up with her primary care physician as needed. - ALLERGIES Allergies/Adverse Reactions: Allergies Allergy/AdvReac Type Severity Reaction Status Date / Time amitriptyline Allergy Severe Unknown Verified 01/03/22 13:51 propoxyphene [From Darvon] Allergy Unknown Unknown Verified 01/03/22 13:51 - MEDICATIONS Home Medications: Ambulatory Orders Medication Instructions Recorded Confirmed Baclofen 20 mg PO QID PRN 05/14/17 01/14/22 Dicyclomine HCl 10 mg PO QID 05/14/17 01/14/22 Gabapentin 100 mg PO TID 05/14/17 01/14/22 Insulin Regular, Human [Humulin R 20 units SUBQ 0800 05/14/17 01/14/22 U-500 Kwikpen] Quetiapine Fumarate 50 mg PO QPM 05/14/17 01/14/22 Insulin Regular, Human [Humulin R] 10 units SUBQ 1200 04/20/18 01/14/22 Insulin Regular, Human [Humulin R] 10 units SUBQ QPM 04/20/18 01/14/22 Metformin HCl 1,000 mg PO BIDWM 04/20/18 01/14/22 Metoprolol Succinate 12.5 mg PO DAILY 04/20/18 01/14/22 lisinopriL [Lisinopril] 2.5 mg PO DAILY 04/20/18 01/14/22 Atorvastatin Calcium 40 mg PO QPM 01/14/22 01/14/22 Amox/Clav 500/125 [Augmentin 1 tablet PO Q12H #10 tablet 01/18/22 500/125] Azithromycin 500 mg PO DAILY 1 Days #2 tablet 01/18/22 Phenytoin [Dilantin] 300 mg PO QPM 30 Days #90 cap 01/18/22 - PHYSICAL EXAM AT DISCHARGE General Appearance: positive: No acute distress, Alert Eyes Bilateral: positive: PERRL, EOMI ENT: positive: No signs of dehydration Neck: positive: No JVD, Trachea midline Respiratory: positive: Chest non-tender, No respiratory distress, Other (Coarse breath sounds) Cardiovascular: positive: Regular rate & rhythm Abdomen: positive: Non-tender, No organomegaly, Nml bowel sounds, No distention. negative: Guarding, Rebound Back: positive: Nml inspection Skin: positive: Color nml, No rash, Warm, Dry Extremities: positive: Non-tender, No pedal edema, Other (contractures in upper extremities) Neurologic/Psychiatric: positive: Oriented x3, Other (quadraplegia.) - LABS Result Diagrams: 01/18/22 07:10 01/18/22 07:10 - SEPSIS Current Stage of Sepsis: Sepsis Possible source of Sepsis: Genitourinary Sepsis Criteria: Recorded Heart Rate greater than 90 bpm, Recorded Respiratory Rate greater than 20 (2 SIRS criteria plus source of infection of UTI.), Met abolic: lactate > 2 mmol/L - TIME SPENT Time Spent in Discharge (Minutes): 20
[2022-01-18 16:22] VITALS: BP 141/72
== END 2022-01-18 16:50 | disposition home or self-care (01) | DRG 871 ==
LOC: EDUNIT# → ED 10:44 → ICU 14:17 → MS2 01-15 19:58
PROVIDERS: ADMIT Family Medicine; ATTEND Internal Medicine
DX: R56.9 Unspecified convulsions (principal); E11.9 Type 2 diabetes mellitus without complications; A41.9 Sepsis, unspecified organism; N30.00 Acute cystitis without hematuria; G92.8 Other toxic encephalopathy; G82.50 Quadriplegia, unspecified; Z20.822 Contact with and (suspected) exposure to COVID-19; E87.2 Acidosis; G93.1 Anoxic brain damage, not elsewhere classified; Z68.42 Body mass index [BMI] 45.0-49.9, adult; G40.909 Epilepsy, unspecified, not intractable, without status epilepticus; D53.9 Nutritional anemia, unspecified; I25.10 Atherosclerotic heart disease of native coronary artery without angina pectoris; I10 Essential (primary) hypertension; E78.5 Hyperlipidemia, unspecified; E66.01 Morbid (severe) obesity due to excess calories; E86.0 Dehydration; R32 Unspecified urinary incontinence; R35.1 Nocturia; R35.0 Frequency of micturition; E86.1 Hypovolemia; E83.42 Hypomagnesemia; G93.89 Other specified disorders of brain; E11.65 Type 2 diabetes mellitus with hyperglycemia; D72.829 Elevated white blood cell count, unspecified; R41.0 Disorientation, unspecified; Z86.73 Personal history of transient ischemic attack (TIA), and cerebral infarction without residual deficits; Z79.899 Other long term (current) drug therapy; I25.2 Old myocardial infarction; Z95.5 Presence of coronary angioplasty implant and graft; Z79.4 Long term (current) use of insulin
CPT/HCPCS: 36415; 51701; 70450; 71045; 80048; 80053; 80185; 80306; 80307; 81001; 82330; 83036; 83605; 83690; 83735; 84100; 84145; 84443; 85025; 87040; 87086; 87150; 87633; 93005; 96365; 96375; 97161; 97165; 99285; A9270; G0480; J1650; J1815; J7120; 80320; 80329; 81003

== ENCOUNTER 2022-02-20 10:43 | Outpatient (CLI) | payer MEDICARE, MEDICAID ==
[2022-02-20 17:55] LABS: CHOL/HDL RATIO 3.1 (<4.4); CHOLESTEROL 157 mg/dL; HDL CHOLESTEROL 51 mg/dL; LDL CHOLESTEROL,CALCULATED 76 mg/dL; LDL/HDL RATIO 1.5 (<4.4); TRIGLYCERIDES 150 mg/dL; VLDL CHOLESTEROL 30 mg/dL
== END 2022-02-20 10:44 | disposition home or self-care (01) ==
LOC: LAB.N 10:43
PROVIDERS: ATTEND Internal Medicine Cardiovascular Disease
DX: I25.10 Atherosclerotic heart disease of native coronary artery without angina pectoris (principal)
CPT/HCPCS: 36415; 80061; 83721

== ENCOUNTER 2023-02-22 10:17 | Outpatient (CLI) | payer MEDICARE, MEDICAID ==
[2023-02-22 12:06] LABS: BASOPHILS # (AUTO) 0.1 10^3/uL (0.0-0.1); BASOPHILS % (AUTO) 0.5 %; EOSINOPHILS # (AUTO) 0.1 10^3/uL (0.0-0.7); EOSINOPHILS % (AUTO) 1.3 %; HCT - HEMATOCRIT 37.4 % (37.0-47.0); HGB - HEMOGLOBIN 12.1 g/dL (12.0-16.0); LYMPHOCYTES # (AUTO) 2.2 10^3/uL (1.5-3.5); LYMPHOCYTES % (AUTO) 19.9 %; MEAN CORPUSCULAR HEMOGLOBIN 31.6 pg (27.0-31.0); MEAN CORPUSCULAR HGB CONC 32.4 g/dL (32.0-36.0); MEAN CORPUSCULAR VOLUME 97.7 fL (81.0-99.0); MEAN PLATELET VOLUME 10.4 fL (7.9-10.8); MONOCYTES # (AUTO) 0.8 10^3/uL (0.0-1.0); NEUTROPHILS # (AUTO) 7.8 10^3/uL (1.5-6.6); NEUTROPHILS % (AUTO) 70.9 %; PLT - PLATELET COUNT 370 10^3/uL (130-450); RED BLOOD COUNT 3.83 10^6/uL (4.20-5.40); RED CELL DISTRIBUTION WIDTH 12.6 % (12.0-15.0); WHITE BLOOD COUNT 10.9 x10^3/uL (4.8-10.8)
[2023-02-22 12:31] LABS: ALBUMIN 4.4 g/dL (3.2-5.5); ALBUMIN/GLOBULIN RATIO 1.2 (1.0-2.2); ALKALINE PHOSPHATASE 66 IU/L (42-121); ALT ALANINE AMINOTRANSFERASE 10 IU/L (10-60); AST ASPARTATE AMINOTRANSFERASE 13 IU/L (10-42); BILIRUBIN,TOTAL 0.3 mg/dL (0.2-1.0); BUN - BLOOD UREA NITROGEN 15 mg/dL (6-20); CALCIUM 9.7 mg/dL (8.5-10.3); CARBON DIOXIDE - CO2 30 mmol/L (21-32); CHLORIDE 96 mmol/L (101-111); CHOLESTEROL 91 mg/dL; CREATININE 0.5 mg/dL (0.6-1.3); GFR - MDRD 122 (>89); GLUCOSE 216 mg/dL (74-104); HDL CHOLESTEROL 45 mg/dL; LDL CHOLESTEROL,CALCULATED 29 mg/dL; LDL/HDL RATIO 0.6 (<4.4); POTASSIUM 4.5 mmol/L (3.5-4.5); SODIUM 137 mmol/L (135-145); TRIGLYCERIDES 84 mg/dL (48-352); VLDL CHOLESTEROL 17 mg/dL
[2023-02-22 12:38] LABS: THYROID STIMULATING HORMONE 1.75 uIU/mL (0.34-5.60)
[2023-02-22 12:44] LABS: ESTIMATED AVERAGE GLUCOSE 174 mg/dL (70-100); HEMOGLOBIN A1c% 7.7 % (4.27-6.07)
[2023-02-22 12:46] LABS: CREATININE,URINE 64.9 mg/dL; MICROALBUM/CREATININE RATIO,UR 423.7 ug/mg (<30.0); MICROALBUMIN,URINE 27.5 mg/dL
== END 2023-02-22 10:18 | disposition home or self-care (01) ==
LOC: LAB.N 10:17
PROVIDERS: ATTEND Physician Assistant
DX: I10 Essential (primary) hypertension (principal); Z51.81 Encounter for therapeutic drug level monitoring; E11.9 Type 2 diabetes mellitus without complications; R00.2 Palpitations; E78.5 Hyperlipidemia, unspecified
CPT/HCPCS: 36415; 80053; 80061; 82043; 82570; 83036; 83721; 84443; 85025

== ENCOUNTER 2023-08-21 10:59 | Outpatient (CLI) | payer MEDICARE, MEDICAID ==
[2023-08-21 18:52] LABS: CALCIUM 9.6 mg/dL (8.5-10.3); CREATININE 0.6 mg/dL (0.6-1.3); POTASSIUM 5.1 mmol/L (3.5-4.5)
[2023-08-21 20:43] LABS: ESTIMATED AVERAGE GLUCOSE 200 mg/dL (70-100); HEMOGLOBIN A1c% 8.6 % (4.27-6.07)
== END 2023-08-21 11:00 | disposition home or self-care (01) ==
LOC: LAB.N 10:59
PROVIDERS: ATTEND Physician Assistant
DX: E11.9 Type 2 diabetes mellitus without complications (principal)
CPT/HCPCS: 36415; 80048; 83036

== ENCOUNTER 2024-03-18 11:15 | Outpatient (CLI) | payer MEDICARE, MEDICAID ==
[2024-03-18 17:50] LABS: BASOPHILS % (AUTO) 0.4 %; EOSINOPHILS # (AUTO) 0.2 10^3/uL (0.0-0.7); EOSINOPHILS % (AUTO) 2.5 %; HCT - HEMATOCRIT 36.8 % (37.0-47.0); HGB - HEMOGLOBIN 11.5 g/dL (12.0-16.0); LYMPHOCYTES # (AUTO) 2.7 10^3/uL (1.5-3.5); LYMPHOCYTES % (AUTO) 27.2 %; MEAN CORPUSCULAR HEMOGLOBIN 30.9 pg (27.0-31.0); MEAN CORPUSCULAR HGB CONC 31.3 g/dL (32.0-36.0); MEAN CORPUSCULAR VOLUME 98.9 fL (81.0-99.0); MEAN PLATELET VOLUME 10.7 fL (7.9-10.8); MONOCYTES # (AUTO) 0.6 10^3/uL (0.0-1.0); MONOCYTES % (AUTO) 6.5 %; NEUTROPHILS # (AUTO) 6.1 10^3/uL (1.5-6.6); PLT - PLATELET COUNT 310 10^3/uL (130-450); RED BLOOD COUNT 3.72 10^6/uL (4.20-5.40); RED CELL DISTRIBUTION WIDTH 13.7 % (12.0-15.0); WHITE BLOOD COUNT 9.7 x10^3/uL (4.8-10.8)
[2024-03-18 18:13] LABS: ALBUMIN 4.2 g/dL (3.2-5.5); ALBUMIN/GLOBULIN RATIO 1.3 (1.0-2.2); ALKALINE PHOSPHATASE 63 IU/L (42-121); ALT ALANINE AMINOTRANSFERASE 10 IU/L (10-60); AST ASPARTATE AMINOTRANSFERASE 11 IU/L (10-42); BILIRUBIN,TOTAL 0.3 mg/dL (0.2-1.0); BUN - BLOOD UREA NITROGEN 11 mg/dL (6-20); CALCIUM 9.8 mg/dL (8.5-10.3); CARBON DIOXIDE - CO2 29 mmol/L (21-32); CHLORIDE 99 mmol/L (101-111); CHOL/HDL RATIO 1.9 (<4.4); CHOLESTEROL 87 mg/dL; CREATININE 0.5 mg/dL (0.6-1.3); GFR - MDRD 122 (>89); GLUCOSE 161 mg/dL (74-104); HDL CHOLESTEROL 46 mg/dL; LDL CHOLESTEROL,CALCULATED 21 mg/dL; LDL/HDL RATIO 0.5 (<4.4); POTASSIUM 4.5 mmol/L (3.5-4.5); SODIUM 139 mmol/L (135-145); TOTAL PROTEIN 7.5 g/dL (6.4-8.9); TRIGLYCERIDES 102 mg/dL; VLDL CHOLESTEROL 20 mg/dL
[2024-03-18 18:24] LABS: THYROID STIMULATING HORMONE 3.48 uIU/mL (0.34-5.60)
[2024-03-18 20:54] LABS: ESTIMATED AVERAGE GLUCOSE 171 mg/dL (70-100); HEMOGLOBIN A1c% 7.6 % (4.27-6.07)
== END 2024-03-18 11:16 | disposition home or self-care (01) ==
LOC: LAB.N 11:15
PROVIDERS: ATTEND Physician Assistant
DX: E11.9 Type 2 diabetes mellitus without complications (principal)
CPT/HCPCS: 36415; 80053; 80061; 83036; 83721; 84443; 85025